=== PATIENT | male | born 1955 | race Caucasian/White ===

== ENCOUNTER 2019-06-19 15:13 | Inpatient (IN) | payer MEDICARE, OTHER ==
[~2019-06-19] VITALS: Ht 170.2 cm; Wt 79.2 kg
[~2019-06-19 15:13] MED LIST: ASPI-817 PO; ATOR-2 PO; ATOR40TA68 PO; GEMF600T8 PO; LINA5TAB PO; METF850T13 PO; METO-336 PO; NIFE30TA2 PO; OMEG100024 PO; PANT40TA4 PO
--- NOTE | 2019-06-19 15:49 | ERD ---
ER Documentation Chief Complaint Chief Complaint pt fell, loss balance -numbness on the right side HPI The patient is a 63-year-old male, presenting to the ER because of sudden onset of weakness and numbness on the right side that began around 10 AM, last known normal was about 8AM. He is unable to walk because of leg weakness. He denies headache, neck pain, chest pain, dyspnea, abdominal pain, vomiting, dysuria, diarrhea. Past medical history: Hypertension, diabetes ROS All systems reviewed and are negative except as per history of present illness. Medications Home Meds Reported Medications Aspirin* (Aspirin* EC) 81 Mg Tablet.dr, 81 MG PO DAILY, TAB 06/19/19 Atorvastatin* (Atorvastatin*) 40 Mg Tablet, 40 MG PO QHS, #30 TAB 06/19/19 Metoprolol Succinate* (Toprol XL*) 100 Mg Tab.sr.24h, 100 MG PO DAILY, #30 TAB 06/19/19 Metformin Hcl* (Metformin Hcl*) 850 Mg Tablet, 850 MG PO WITH BREAKFAST DINNE, #60 TAB 06/19/19 Allergies Allergies: Coded Allergies: No Known Allergy (Unverified , 06/19/19) Physical Exam Vitals Vital Signs Date Temp Pulse Resp B/P (MAP) Pulse Ox O2 O2 Flow FiO2 Time Delivery Rate 06/19/19 98.3 88 20 177/101 100 Room Air 17:58 (126) 06/19/19 91 16 185/112 100 Room Air 16:53 (136) 06/19/19 98.3 92 18 191/104 96 Room Air 16:15 (133) 06/19/19 98.0 99 22 194/109 97 15:18 (137) Physical Exam Const: No acute distress. Head: Atraumatic. Eyes: Normal Conjunctiva. ENT: Normal External Ears, Nose and Mouth. Neck: Full range of motion. No meningismus. Resp: Clear to auscultation bilaterally. Cardio: Regular rate and rhythm. Abd: Soft, non distended, normal bowel sounds, non tender. Skin: No petechiae or rashes. Back: No midline or flank tenderness. Ext: No cyanosis, or edema. Neur: Awake and alert. Right upper and right lower extremity are 4+, left upper and left lower extremity 5/5 Psych: Normal Mood and Affect. Result Diagram: 06/19/19 1531 06/19/19 1531 Results 24 hrs Laboratory Tests Test 06/19/19 15:31 06/19/19 15:48 White Blood Count 6.7 10^3/ul Red Blood Count 4.80 10^6/ul Hemoglobin 12.1 g/dl Hematocrit 38.1 % Mean Corpuscular Volume 79.4 fl Mean Corpuscular Hemoglobin 25.2 pg Mean Corpuscular Hemoglobin Concent 31.8 g/dl Red Cell Distribution Width 15.8 % Platelet Count 242 10^3/UL Mean Platelet Volume 11.0 fl Immature Granulocytes % 0.900 % Neutrophils % 66.5 % Lymphocytes % 25.7 % Monocytes % 5.8 % Eosinophils % 0.7 % Basophils % 0.4 % Nucleated Red Blood Cells % 0.0 /100WBC Immature Granulocytes # 0.060 10^3/ul Neutrophils # 4.5 10^3/ul Lymphocytes # 1.7 10^3/ul Monocytes # 0.4 10^3/ul Eosinophils # 0.1 10^3/ul Basophils # 0.0 10^3/ul Nucleated Red Blood Cells # 0.0 10^3/ul Prothrombin Time 13.0 Sec Prothrombin Time Ratio 1.0 INR International Normalized Ratio 0.97 Activated Partial Thromboplast Time 35.1 Sec Sodium Level 140 mmol/L Potassium Level 4.2 mmol/L Chloride Level 106 mmol/L Carbon Dioxide Level 22 mmol/L Anion Gap 12 Blood Urea Nitrogen 20 mg/dl Creatinine 1.75 mg/dl Est Glomerular Filtrat Rate mL/min 40 mL/min Glucose Level 231 mg/dl Hemoglobin A1c 9.5 % Calcium Level 9.7 mg/dl Creatine Kinase 69 IU/L Creatine Kinase Index 2.8 Creatinine Kinase MB (Mass) 1.93 ng/ml Troponin I < 0.012 ng/ml Triglycerides Level > 1575 mg/dl Cholesterol Level 294 mg/dl LDL Cholesterol, Calculated mg/dl HDL Cholesterol 27 mg/dl Cholesterol/HDL Ratio 10.8 RATIO Ethyl Alcohol Level < 10.0 mg/dl Bedside Glucose 230 mg/dL Current Medications Medications Dose Sig/Abida Start Time Status Last (Trade) Ordered Route PRN Stop Time Admin Dose Reason Admin Aspirin 325 mg ONCE ONCE 06/19/19 DC 06/19/19 (Aspirin) PO 16:30 06/19/19 16:18 16:31 Labetalol 10 mg ONCE ONCE 06/19/19 DC 06/19/19 HCl IV 17:30 06/19/19 17:43 (Labetalol) 17:41 Labetalol 20 mg STK-MED 06/19/19 DC HCl ONCE .ROUTE 17:31 06/19/19 (Labetalol) 17:32 Procedures/MDM [place] [id number] Radiology Main Line: [phone] DIAGNOSTIC IMAGING REPORT Patient: KENZIE ESPARZA : 1955 Age: 63 Sex: M MR #: [id number] DOS: 06/19/19 1525 Ordering MD: MICHELE LOTT MD Location: E/R Room/Bed: PROCEDURE: CT BRAIN WITHOUT CONTRAST CLINICAL INDICATION: Right-sided weakness. TECHNIQUE: Transaxial CT examination of the head was performed without intravenous administration of contrast on a [employer] helical CT scanner. In addition to the brain and bone windows of transaxial images, multiple sagittal and coronal reformatted images were generated for the interpretation. DICOM images are available. Radiation dose: CTDIvol = 39 mGy; total DLP = 634 mGy-cm. One or more of the following dose reduction techniques were used: - Automated exposure control. - Adjustment of the mA and/or kV according to patient size. - Use of iterative reconstruction technique. COMPARISON: None. FINDINGS: Evaluation of the supratentorial compartment demonstrates approximately 20 mm cerebral fraction of the posteroinferior right parietal lobe (series 2, image 16; series 602, image 20) of probable late subacute/early chronic age and 10 mm lacunar infarction at the lateral left thalamus (series 2, image 13; series 602, image 56) of a probable old age. There is no hemorrhage, appreciable recent cerebral infarction, mass effect, midline shift, or abnormal extra-axial fluid collection. Mild enlargement of the ventricles and mild to moderate enlargement of the cortical sulci in a pattern of atrophy are normal for the age. Mild periventricular and subcortical white matter hypoattenuation density is present, which is most likely due to age related microvascular change. Evaluation of the posterior fossa reveals no infarction, hemorrhage, or mass effect. Mild atrophic change is compatible with the age of patient. The cerebellar tonsils are in normal position relative to the foramen magnum. The skull is intact without abnormal bone density or destructive lesion. Bilateral mastoid air cells and the visualized paranasal sinuses are normally aerated. IMPRESSION: 1. No appreciable recent cerebral infarction, hemorrhage, or hydrocephalus. 2. Approximately 20 mm cerebral fraction of the posteroinferior right parietal lobe of probable late subacute/early chronic age. 3. Approximately 10 mm lacunar infarction at the lateral left thalamus of a probable old age. 4. Mild age related microvascular change. 5. A call report of the findings was made to Michele Lott MD on 06/19/2019 at 3:50 PM. RPTAT: EE Physician Alexa Date Time Electronically viewed and signed by Physician Alexa on 06/19/2019 15:56 PH/ CC: MICHELE LOTT MD [id number] [place] [id number] Radiology Main Line: [phone] DIAGNOSTIC IMAGING REPORT Patient: KENZIE ESPARZA : 1955 Age: 63 Sex: M MR #: [id number] DOS: 06/19/19 1525 Ordering MD: MICHELE LOTT MD Location: E/R Room/Bed: PROCEDURE: XR Chest. CLINICAL INDICATION: Stroke. TECHNIQUE: Chest, 1 view. COMPARISON: None. FINDINGS: The cardiomediastinal silhouette appears magnified. No focal consolidation is seen. No pleural effusion is seen. No definite pneumothorax is seen. No acute osseous abnormality. IMPRESSION: No radiographic evidence of an acute cardiopulmonary process. RPTAT: AAEE Grant Deleon Physician Date Time Electronically viewed and signed by Grant Deleon Physician on 06/19/2019 15:49 PH/ CC: MICHELE LOTT MD [id number] [place] [id number] Radiology Main Line: [phone] DIAGNOSTIC IMAGING REPORT Patient: KENZIE ESPARZA : 1955 Age: 63 Sex: M MR #: [id number] DOS: 06/19/19 1525 Ordering MD: MICHELE LOTT MD Location: E/R Room/Bed: PROCEDURE: CT ANGIOGRAPHY BRAIN, NECK, AND AORTIC ARCH WITH CONTRAST AND WITH 3D RENDERING CLINICAL INDICATION: Right-sided weakness. TECHNIQUE: CT angiography of the brain, neck, and aortic arch was performed on a digedu helical CT scanner. High resolution contiguous transaxial images were obtained from the upper thorax to the vertex during intravenous bolus administration of 90 cc of Omnipaque-350. Multiple multiplanar angiographic reformatted images and 3-D rendering were generated for the interpretation. DICOM images are available. Radiation dose: CTDIvol = 20, 42, 18 mGy; total DLP = 785 mGy-cm. One or more of the following dose reduction techniques were used: - Automated exposure control. - Adjustment of the mA and/or kV according to patient size. - Use of iterative reconstruction technique. COMPARISON: None. FINDINGS: CT ANGIOGRAM BRAIN: The basilar, intracranial portion of bilateral internal carotid, intracranial portion of bilateral vertebral, and proximal branches of bilateral anterior, middle, and posterior cerebral arteries are patent without stenosis. There is no aneurysm involving the [place] of [place] and bilateral middle cerebral artery bifurcations. There are no findings to suggest arterial dissection. CT ANGIOGRAM NECK: Approximately 21mm segment of high-grade stenosis involving the origin and proximal cervical segment of right internal carotid artery and 18 mm segment of mild stenosis involving the origin and proximal cervical segment of left internal carotid artery are present. Cervical segments of bilateral common carotid and vertebral arteries are patent without stenosis. Normal proximal branches of bilateral external carotid arteries are observed. There are no findings to suggest arterial dissection. CT ANGIOGRAM AORTIC ARCH: The innominate, bilateral common carotid, left subclavian, and origins of bilateral vertebral arteries are patent without stenosis. There are no findings to suggest arterial dissection. IMPRESSION: 1. Approximately 21mm segment of high-grade stenosis involving the origin and proximal cervical segment of right internal carotid artery. 2. Approximately 18 mm segment of mild stenosis involving the origin and proximal cervical segment of left internal carotid artery. 3. Calculations of the arterial stenosis are based on the NASCET criteria. 4. A call report of the findings was made to Michele Lott MD on 06/19/2019 at 3:50 PM. RPTAT: EE Sudhakar Dasilva Physician Date Time Electronically viewed and signed by Sudhakar Dasilva Physician on 06/19/2019 16:10 PH/ CC: MICHELE LOTT MD [id number] /UDS Pending Consultation: I discussed the patient with the on-call stroke neurologist Dr Noyola at 3:40p and again after he evaluated the patient at 4 pm. He did not recommend TPA because the patient was out of the window MEDICAL MAKING DECISION: The patient is a 73-year-old male, presenting with acute stroke, not a TPA candidate b/c he was out of the window He was treated with labetalol 10 mg IV for acute hypertensive emergency with good response, ASA 325 mg po for acute stroke. The differential diagnoses considered include but are not limited to medical noncompliance, dietary noncompliance, intracranial pathology Departure Diagnosis: Primary Impression: Acute embolic stroke Additional Impressions: Renal insufficiency Anemia Condition: Stable Comments I discussed the findings with the patient. I notified the patient with at 5:35p via [facility], who was made aware of the lab, the treatment, the patient condition. The patient is admitted to [facility] Disclaimer: Inadvertent spelling and grammatical errors are likely due to EHR/dictation software use and do not reflect on the overall quality of patient care. Also, please note that the electronic time recorded on this note does not necessarily reflect the actual time of the patient encounter. MICHELE LOTT MD Jun 19, 2019 15:49
--- NOTE | 2019-06-19 15:59 | STROKE ---
Date/Time of Note Date/Time of Note DATE: 06/19/19 TIME: 18:40 Patient Information General Arrival Date Age 63 Gender male Weight 84.09 kg Vital Signs Vital Signs Vital Signs Date Temp Pulse Resp B/P (MAP) Pulse Ox O2 O2 Flow FiO2 Time Delivery Rate 06/19/19 98.0 99 22 194/109 97 15:18 (137) NIH Stroke Scale NIH Stroke Scale Date/Time Recorded DATE: 06/19/19 TIME: 18:40 Submitted By Wallace Gutierrez t-PA Imaging Review Date/Time Imaging Reviewed DATE: 06/19/19 TIME: 18:40 t-PA Administration Weight 84.09 kg Recommedation submitted by Wallace Gutierrez Recommendations Recommendation 63-year-old right-handed man with sudden onset of right-sided weakness this morning at 10:00 am. LKN 8:00 am. son interprets. is present. blood pressure on arrival is 194/109. he has right arm drift. patient is not a candidate for iv tpa because he is outside the time window for such therapy. he is undergoing vascular imaging to see if there is a large vessel occlusion. patient will need to be admitted for stroke workup to include mri brain, transthoracic echocardiogram, lipid profile. he will need physical therapy, sp eech therapy, occupational therapy. do not administer anything by mouth until bedside swallow was passed. if vascular imaging shows large vessel occlusion, he will be referred for intervention - I do not see one on CTA. otherwise, no acute intervention. SBP < 200. aspirin 325 mg now. high intensity statin. ldl goal 70. WALLACE GUTIERREZ MD Jun 19, 2019 15:50
[2019-06-19] MEDS ORDERED: ASPIRIN 325 MG TAB PO ONE (16:30)
[2019-06-19] MEDS ORDERED: LABETALOL HCL 20MG INJ IV ONE ×2 (17:30→21:00)
[2019-06-19] MEDS ORDERED: LABETALOL HCL 20MG INJ ONE (17:31)
[2019-06-19] MEDS ORDERED: NACL 0.9% 3 ML SYG IV SCH (19:00)
[2019-06-19] MEDS ORDERED: DOCUSATE SODIUM 100 MG CAP PO PRN (19:00)
[2019-06-19] MEDS ORDERED: ONDANSETRON 4 MG INJ IV PRN (19:00)
[2019-06-19] MEDS ORDERED: NITROGLYCERIN (SL) 0.4 MG TAB SL PRN (19:00)
[2019-06-19] MEDS ORDERED: MAGNESIUM HYDROXIDE 30ML CUP PO PRN (19:00)
--- NOTE | 2019-06-19 19:28 | HP ---
Date/Time of Note Date/Time of Note DATE: 06/19/19 TIME: 19:11 Assessment/Plan VTE Prophylaxis SCD applied (from Nsg): Yes Pharmacological prophylaxis: heparin Lines/Catheters IV Catheter Type (from Nrsg): Saline Lock Assessment/Plan Assessment/Plan 1. Acute right sided numbness - Patient TRUONG was this am around 8am - CT head negative for acute issues - CTA performed with no large vessel occlusion - MRI brain ordered - Neurology consulted for further recommendations - ECHO with bubble ordered - Will continue permissive HTN for the next 48 hours - PT/OT ordered for evaluation - no swallowing or speech deficits appreciated 2. HyperTG - will change to high dose statin - started on gemfibrozil as well - diet modification counseling prior to discharge 3. HTN - allow for permissive HTN - hold home medications 4. Diabetes mellitus - A1c noted - patient refusing home insulin - will consult DM education - ISS and accuchecks okay while inhouse - will hold Metformin in setting of GIBLERT 5. GILBERT - will continue IVF given could be contrast induced - will check renal US - if worsening, will consult Nephrology - will avoid nephrotoxic agents 6. ETOH use - counseled about cessation 7. Diet - Carb controlled 8. Disposition - Admit to telemetry for stroke workup. Neurology consulted for further recom mendations. Result Diagram: 06/19/19 1531 06/19/19 1531 Results 24hrs Laboratory Tests Test 06/19/19 15:31 06/19/19 15:48 White Blood Count 6.7 Red Blood Count 4.80 Hemoglobin 12.1 L Hematocrit 38.1 L Mean Corpuscular Volume 79.4 L Mean Corpuscular Hemoglobin 25.2 L Mean Corpuscular Hemoglobin Concent 31.8 L Red Cell Distribution Width 15.8 H Platelet Count 242 Mean Platelet Volume 11.0 H Immature Granulocytes % 0.900 H Neutrophils % 66.5 Lymphocytes % 25.7 Monocytes % 5.8 Eosinophils % 0.7 Basophils % 0.4 Nucleated Red Blood Cells % 0.0 Immature Granulocytes # 0.060 H Neutrophils # 4.5 Lymphocytes # 1.7 Monocytes # 0.4 Eosinophils # 0.1 Basophils # 0.0 Nucleated Red Blood Cells # 0.0 Prothrombin Time 13.0 Prothrombin Time Ratio 1.0 INR International Normalized Ratio 0.97 Activated Partial Thromboplast Time 35.1 H Sodium Level 140 Potassium Level 4.2 Chloride Level 106 Carbon Dioxide Level 22 Anion Gap 12 Blood Urea Nitrogen 20 Creatinine 1.75 H Est Glomerular Filtrat Rate mL/min 40 L Glucose Level 231 H Hemoglobin A1c 9.5 H Calcium Level 9.7 Creatine Kinase 69 Creatine Kinase Index 2.8 Creatinine Kinase MB (Mass) 1.93 Troponin I < 0.012 Triglycerides Level > 1575 H Cholesterol Level 294 H LDL Cholesterol, Calculated HDL Cholesterol 27 L Cholesterol/HDL Ratio 10.8 Ethyl Alcohol Level < 10.0 H Bedside Glucose 230 H HPI/ROS Admit Date/Time Admit Date/Time 06/19/19 Hx of Present Illness 63 yo M with PMH Diabetes Mellitus, Hypertension, and HLD presented to ED with new onset right sided weakness since 10am. Patient states he has been experiencing right abdominal numbness/discomfort for 6-7 months and supposed to see his PCP tomorrow. 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 Patient denies any dizziness, blurred vision, speech difficulty, nausea, vomiting, chest pain, shortness of breath, constipation, diarrhea, or urinary issues. Patient was evaluated by tele neurologist and was outside of TPA window. Patient was noted with elevated BP in the 190s at time of admission. Patient denies any history of ME or CVA in the past. He recently stopped smoking in December but only smoked 3-5 cigarettes a day. He recently started drinking more often, per family, after of his grandson. ROS All 12 systems reviewed and pertinent positives as per HPI. All others negative . Constitutional: No disoriented, No nausea Eyes: No discharge ENT: No pain, No congestion, No dysphagia Respiratory: No cough, No shortness of breath, No sputum, No wheezing Cardiovascular: No chest pain Gastrointestinal: other (numbness right flank radiating to anterior right quadrant ); No pain, No constipation, No diarrhea, No nausea, No vomiting Genitourinary: flank pain; No bleeding Musculoskeletal: No neck pain Skin: No bruising, No laceration, No rash Neurologic: other (right sided numbness RUE and RLE.); No confusion, No dizziness, No focal-weakness, No syncope, No seizure Endocrine: no complaints Lymphatic: no complaints Psychological: nl mood/affect Immunologic: no complaints PMH/Family/Social Past Medical History Medical History: diabetes, high cholesterol, hypertension Medications Current Medications Aspirin (Halfprin) 81 mg DAILY PO ; Start 06/20/19 at 09:00 Atorvastatin Calcium (Lipitor) 80 mg QHS PO ; Start 06/19/19 at 21:00 Sodium Chloride 1,000 ml @ 75 mls/hr [id number] IV ; Start 06/19/19 at 18:36 IV Flush (NS 3 ml) 3 ml PER PROTOCOL IV ; Start 06/19/19 at 19:00 Ondansetron HCl (Zofran Inj) 4 mg Q6H PRN IV NAUSEA/VOMITING; Start 06/19/19 at 19:00 Nitroglycerin (Nitroglycerin (Sl Tab) 0.4 Mg) 1 tab Q5M PRN SL .CHEST PAIN; Start 06/19/19 at 19:00 Acetaminophen (Tylenol Tab) 650 mg Q6H PRN PO .PAIN 1-3 OR TEMP; Start 06/19/19 at 19:00 Docusate Sodium (Colace) 100 mg Q12H PRN PO .CONSTIPATION; Start 06/19/19 at 19:00 Magnesium Hydroxide (Milk Of Mag) 30 ml DAILY PRN PO .CONSTIPATION; Start 06/19/19 at 19:00 Pantoprazole (Protonix Tab) 40 mg DAILY@06 PO ; Start 06/20/19 at 06:00 Heparin Sodium (Porcine) (Heparin (5000 Units/1ml)) 5,000 unit Q12 SC ; Start 06/19/19 at 21:00 Labetalol HCl (Labetalol) 10 mg Q2 PRN IV SBP >200; Start 06/19/19 at 19:00 Coded Allergies: No Known Allergy (Unverified , 06/19/19) Past Surgical History Past Surgical Hx: no surgical history Family History Significant Family History: no pertinent family hx Social History Alcohol Use: other (6 beers daily over past 2 weeks) Smoking Status: Former smoker Drug Use: none Exam/Review of Systems Vital Signs Vitals Vital Signs Date Temp Pulse Resp B/P (MAP) Pulse Ox O2 O2 Flow FiO2 Time Delivery Rate 06/19/19 98.3 88 20 177/101 100 Room Air 17:58 (126) Exam Exam General: Patient is laying in bed and answers questions appropriately. no acute distress Mentation: Patient is alert and oriented 4 Head: Normocephalic atraumatic Eyes: EOMI, pupils reactive to light Neck: Supple, nontender, midline Respiratory: Clear to auscultation bilaterally. no wheezing or rhonchi Cardiovascular: S1, S2, regular rate and rhythm, no obvious murmurs Gastrointestinal:soft, nontender palpation, nondistended, bowel sounds heard. no rebound or guarding. diminished sensation right flank extending to anterior aspect of right quadrant Neurological: CN 2-12 intact. motor intact UE/LE b/l. Sensation RUE and RLE diminished. LUE and LLE intact. no focal deficits appreciated Skin: No new skin lesions Additional Comments All home medications reviewed. PROCEDURE: CT BRAIN WITHOUT CONTRAST CLINICAL INDICATION: Right-sided weakness. TECHNIQUE: Transaxial CT examination of the head was performed without intravenous administration of contrast on a Elixr helical CT scanner. In addition to the brain and bone windows of transaxial images, multiple sagittal and coronal reformatted images were generated for the interpretation. DICOM images are available. Radiation dose: CTDIvol = 39 mGy; total DLP = 634 mGy-cm. One or more of the following dose reduction techniques were used: - Automated exposure control. - Adjustment of the mA and/or kV according to patient size. - Use of iterative reconstruction technique. COMPARISON: None. FINDINGS: Evaluation of the supratentorial compartment demonstrates approximately 20 mm cerebral fraction of the posteroinferior right parietal lobe (series 2, image 16; series 602, image 20) of probable late subacute/early chronic age and 10 mm lacunar infarction at the lateral left thalamus (series 2, image 13; series 602, image 56) of a probable old age. There is no hemorrhage, appreciable recent cerebral infarction, mass effect, midline shift, or abnormal extra-axial fluid collection. Mild enlargement of the ventricles and mild to moderate enlargement of the cortical sulci in a pattern of atrophy are normal for the age. Mild periventricular and subcortical white matter hypoattenuation density is present, which is most likely due to age related microvascular change. Evaluation of the posterior fossa reveals no infarction, hemorrhage, or mass effect. Mild atrophic change is compatible with the age of patient. The cerebellar tonsils are in normal position relative to the foramen magnum. The skull is intact without abnormal bone density or destructive lesion. Bilateral mastoid air cells and the visualized paranasal sinuses are normally aerated. IMPRESSION: 1. No appreciable recent cerebral infarction, hemorrhage, or hydrocephalus. 2. Approximately 20 mm cerebral fraction of the posteroinferior right parietal lobe of probable late subacute/early chronic age. 3. Approximately 10 mm lacunar infarction at the lateral left thalamus of a probable old age. 4. Mild age related microvascular change. 5. A call report of the findings was made to Michele Correia MD on 06/19/2019 at 3:50 PM. RPTAT: EE Sudhakar Dasilva, Physician Date Time Electronically viewed and signed by Sudhakar Dasilva Physician on 06/19/2019 15:56 PROCEDURE: XR Chest. CLINICAL INDICATION: Stroke. TECHNIQUE: Chest, 1 view. COMPARISON: None. FINDINGS: The cardiomediastinal silhouette appears magnified. No focal consolidation is seen. No pleural effusion is seen. No definite pneumothorax is seen. No acute osseous abnormality. IMPRESSION: No radiographic evidence of an acute cardiopulmonary process. RPTAT: AAEE Grant Deleon, Physician Date Time Electronically viewed and signed by Physician Stefanie on 06/19/2019 15:49 PROCEDURE: CT ANGIOGRAPHY BRAIN, NECK, AND AORTIC ARCH WITH CONTRAST AND WITH 3D RENDERING CLINICAL INDICATION: Right-sided weakness. TECHNIQUE: CT angiography of the brain, neck, and aortic arch was performed on a Elixr helical CT scanner. High resolution contiguous transaxial images were obtained from the upper thorax to the vertex during intravenous bolus administration of 90 cc of Omnipaque-350. Multiple multiplanar angiographic reformatted images and 3-D rendering were generated for the interpretation. DICOM images are available. Radiation dose: CTDIvol = 20, 42, 18 mGy; total DLP = 785 mGy-cm. One or more of the following dose reduction techniques were used: - Automated exposure control. - Adjustment of the mA and/or kV according to patient size. - Use of iterative reconstruction technique. COMPARISON: None. FINDINGS: CT ANGIOGRAM BRAIN: The basilar, intracranial portion of bilateral internal carotid, intracranial portion of bilateral vertebral, and proximal branches of bilateral anterior, middle, and posterior cerebral arteries are patent without stenosis. There is no aneurysm involving the [place] of [place] and bilateral middle cerebral artery bifurcations. There are no findings to suggest arterial dissection. CT ANGIOGRAM NECK: Approximately 21mm segment of high-grade stenosis involving the origin and proximal cervical segment of right internal carotid artery and 18 mm segment of mild stenosis involving the origin and proximal cervical segment of left internal carotid artery are present. Cervical segments of bilateral common carotid and vertebral arteries are patent without stenosis. Normal proximal branches of bilateral external carotid arteries are observed. There are no findings to suggest arterial dissection. CT ANGIOGRAM AORTIC ARCH: The innominate, bilateral common carotid, left subclavian, and origins of bilateral vertebral arteries are patent without stenosis. There are no findings to suggest arterial dissection. IMPRESSION: 1. Approximately 21mm segment of high-grade stenosis involving the origin and proximal cervical segment of right internal carotid artery. 2. Approximately 18 mm segment of mild stenosis involving the origin and proximal cervical segment of left internal carotid artery. 3. Calculations of the arterial stenosis are based on the NASCET criteria. 4. A call report of the findings was made to Michele Correia MD on 06/19/2019 at 3:50 PM. RPTAT: EE Physician Alexa Date Time Electronically viewed and signed by Physician Alexa on 06/19/2019 16:10 LIZANDRO CARRERA MD Jun 19, 2019 19:28
[2019-06-19] MEDS ORDERED: GLUCAGON 1 MG INJ IM PRN (19:30)
[2019-06-19] MEDS ORDERED: GLUCOSE GEL 15 GRAM TUBE BUCCAL PRN (19:30)
[2019-06-19] MEDS ORDERED: DEXTROSE 50% 50 ML SYRINGE IV PRN ×2 (19:30)
[2019-06-19] MEDS ORDERED: GLUCOSE GEL 15 GRAM TUBE PO PRN ×2 (19:30)
[2019-06-19] MEDS: LABETALOL HCL 20MG INJ IV PRN (19:41)
[2019-06-19] MEDS ORDERED: ATORVASTATIN 40 MG TAB PO SCH (21:00)
[2019-06-19] MEDS: INSULIN ASPART [NOVOLOG] 3 ML PEN SC SCH (22:20)
[2019-06-19] MEDS: GEMFIBROZIL 600 MG TAB PO SCH (22:48)
[2019-06-20] VITALS (7 sets, daily range): BP systolic 182–254; BP diastolic 89–124; PULSE 89–102; RESP 18–20; Ht 170.2 cm; Wt 79.2 kg
[2019-06-20] MEDS: LABETALOL HCL 20MG INJ IV PRN (01:39)
[2019-06-20] MEDS ORDERED: LABETALOL HCL 20MG INJ IV ONE (02:00)
[2019-06-20] MEDS: SOD CHLORIDE 0.9% 1,000 ML IV SCH ×3 (03:25→20:14)
[2019-06-20] MEDS: HEPARIN 5,000 UNIT/1 ML VIAL SC SCH ×3 (03:39→21:09)
[2019-06-20] MEDS ORDERED: INSULIN ASPART [NOVOLOG] 3 ML PEN SC ONE (04:00)
[2019-06-20] MEDS ORDERED: ACCU-CHEK XX ONE (04:00)
[2019-06-20] MEDS: PANTOPRAZOLE (EC) 40 MG TAB PO SCH (06:38)
[2019-06-20] MEDS: INSULIN ASPART [NOVOLOG] 3 ML PEN SC SCH ×4 (07:48→21:09)
[2019-06-20] MEDS ORDERED: ASPIRIN 81 MG TAB ONE (07:51)
[2019-06-20] MEDS: GEMFIBROZIL 600 MG TAB PO SCH ×2 (07:55→20:48)
[2019-06-20] MEDS: ASPIRIN (EC) 81 MG TAB PO SCH (08:04)
[2019-06-20] MEDS ORDERED: LABETALOL HCL 20MG INJ IV PRN (09:00)
[2019-06-20] MEDS ORDERED: hydrALAzine 20 MG INJ IV PRN (09:00)
[2019-06-20] MEDS ORDERED: MAGNESIUM SULFATE 2 GM/50 ML 50 ML IVPB ONE (10:00)
[2019-06-20] MEDS: INSULIN GLARGINE [LANTus] (100 UNITS/ML) SYG SC SCH (10:58)
--- NOTE | 2019-06-20 14:56 | CONSI ---
Assessment/Plan Assessment/Plan Assessment/Plan (Recall) 63 M c/ multiple cerebrovascular risk factors, who presents for evaluation of right hemiparesis and hemisensory loss. MRI brain confirmed an acute L bg/cr infarction.. CUS/CTA head/neck are notable for bicarotid stenosis, worse on the right... A1C 9.5 LDL unable to be calculated.. P: Agree w/ asa/lipitor daily for now Permissive HTN to 220/110 w/ HOB flat and continuous iv fluids today given clinical deterioration.. Await UDS; Add ESR, RPR Await Echo read Vascular surgery evaluation for carotid stenoses ST/OT OK while flat Other management and supportive care per primary Will follow Consultation Date/Type/Reason Admit Date/Time 06/19/19 Type of Consult Neurology Reason for Consultation stroke Requesting Provider: LIZANDRO CARRERA MD Date/Time of Note DATE: 06/20/19 TIME: 14:40 Hx of Present Illness 63 yo M with PMH Diabetes Mellitus, Hypertension, and HLD presented to ED with new onset right sided weakness since 10am. Patient states he has been experiencing right abdominal numbness/discomfort for 6-7 months and supposed to see his PCP tomorrow. Patient states the numbness extended to his RLE and RUE causing him to feel off balanced and unable to plate former anything with his right hand. Patient denies any dizziness, blurred vision, speech difficulty, nausea, vomiting, chest pain, shortness of breath, constipation, diarrhea, or urinary issues. Patient was evaluated by tele neurologist and was outside of TPA window. Patient was noted with elevated BP in the 190s at time of admission. Patient denies any history of LA or CVA in the past. He recently stopped smoking in December but only smoked 3-5 cigarettes a day. He recently started drinking more often, per family, after of his grandson. Notes worsened weakness overnight.. Repeat Head CT is w/o evidence of hemorrhagic transformation reviewed Objective Exam Vitals Vital Signs Date Temp Pulse Resp B/P (MAP) Pulse Ox O2 O2 Flow FiO2 Time Delivery Rate 06/20/19 98.0 95 20 185/96 98 12:00 (125) 06/20/19 Room Air 02:00 Intake and Output 06/19/19 06/19/19 06/20/19 1515:00 23:00 07:00 IntakeIntake Total 475 ml OutputOutput Total 200 ml BalanceBalance 275 ml Exam PE: Gen Appearance: No Apparent Distress HEENT: Normocephalic Cardiovascular: Regular rate Abdomen: Soft Extremities: Dry NE: The patient was alert and oriented. Language was normal, though speech was moderately dysarthric.. Fund of knowledge was normal. Pupils were equal and reactive to light. There was no afferent pupillary defect. Visual urena were normal. Funduscopic examination was limited. Extra-ocular movements were full. Ptosis was absent. There was no nystagmus. Facial sensation was normal. Face was asymmetric with decreased activation on the right.. Hearing was intact. Palate movements were normal. Neck strength was normal. There was n ormal tongue bulk and speed of movement. Tone was normal. Muscle bulk was normal. I did not see fasciculations. Arms and legs were severely weak on the right. Vibration sensation was normal. Temperature and pinprick sensation was normal. Rapid alternating movements were limited by weakness on the right. There was no dysmetria on the left.. There was no intention tremor. Gait was deferred due to bedrest. Arm and leg reflexes were symmetric. Smiley's sign was absent. Plantar response was extensor on the right. Results Result Diagram: 06/20/19 0525 06/20/19 0525 Results 24hrs Laboratory Tests Test 06/19/19 15:31 06/19/19 15:48 06/19/19 22:12 06/20/19 03:23 White Blood Count 6.7 Red Blood Count 4.80 Hemoglobin 12.1 L Hematocrit 38.1 L Mean Corpuscular Volume 79.4 L Mean Corpuscular 25.2 L Hemoglobin Mean Corpuscular 31.8 L Hemoglobin Concent Red Cell Distribution 15.8 H Width Platelet Count 242 Mean Platelet Volume 11.0 H Immature Granulocytes % 0.900 H Neutrophils % 66.5 Lymphocytes % 25.7 Monocytes % 5.8 Eosinophils % 0.7 Basophils % 0.4 Nucleated Red Blood 0.0 Cells % Immature Granulocytes # 0.060 H Neutrophils # 4.5 Lymphocytes # 1.7 Monocytes # 0.4 Eosinophils # 0.1 Basophils # 0.0 Nucleated Red Blood 0.0 Cells # Prothrombin Time 13.0 Prothrombin Time Ratio 1.0 INR International 0.97 Normalized Ratio Activated 35.1 H Partial Thromboplast Time Sodium Level 140 Potassium Level 4.2 Chloride Level 106 Carbon Dioxide Level 22 Anion Gap 12 Blood Urea Nitrogen 20 Creatinine 1.75 H Est Glomerular Filtrat 40 L Rate mL/min Glucose Level 231 H Hemoglobin A1c 9.5 H Calcium Level 9.7 Creatine Kinase 69 Creatine Kinase Index 2.8 Creatinine Kinase MB 1.93 (Mass) Troponin I < 0.012 Triglycerides Level > 1575 H Cholesterol Level 294 H LDL Cholesterol, Calculated HDL Cholesterol 27 L Cholesterol/HDL Ratio 10.8 Ethyl Alcohol Level < 10.0 H Bedside Glucose 230 H 209 320 H Test 06/20/19 04:36 06/20/19 05:25 06/20/19 06:36 06/20/19 07:34 Bedside Glucose 340 H 260 H 246 H White Blood Count 6.4 Red Blood Count 5.06 Hemoglobin 12.8 L Hematocrit 40.6 L Mean Corpuscular Volume 80.2 L Mean Corpuscular 25.3 L Hemoglobin Mean Corpuscular 31.5 L Hemoglobin Concent Red Cell Distribution 16.0 H Width Platelet Count 257 Mean Platelet Volume 11.9 H Immature Granulocytes % 0.800 H Neutrophils % 78.4 H Lymphocytes % 14.8 L Monocytes % 5.0 Eosinophils % 0.8 Basophils % 0.2 Nucleated Red Blood 0.0 Cells % Immature Granulocytes # 0.050 H Neutrophils # 5.0 Lymphocytes # 0.9 Monocytes # 0.3 Eosinophils # 0.1 Basophils # 0.0 Nucleated Red Blood 0.0 Cells # Sodium Level 139 Potassium Level 3.8 Chloride Level 104 Carbon Dioxide Level 20 L Anion Gap 15 H Blood Urea Nitrogen 22 H Creatinine 1.54 H Est Glomerular Filtrat 46 L Rate mL/min Glucose Level 305 H Calcium Level 9.7 Magnesium Level 1.7 Total Bilirubin 0.4 Direct Bilirubin 0.00 Indirect Bilirubin 0.4 Aspartate Amino 20 Transf (AST/SGOT) Alanine 12 L Aminotransferase (ALT/SG PT) Alkaline Phosphatase 96 Total Protein 8.2 H Albumin 4.3 Globulin 3.90 H Albumin/Globulin Ratio 1.10 Thyroid Stimulating 4.090 Hormone (TSH) Test 06/20/19 11:47 Bedside Glucose 313 H Past Medical History Medical History: diabetes, high cholesterol, hypertension Home Meds Reported Medications Aspirin* (Aspirin* EC) 81 Mg Tablet.dr, 81 MG PO DAILY, TAB 06/19/19 Atorvastatin* (Atorvastatin*) 40 Mg Tablet, 40 MG PO QHS, #30 TAB 06/19/19 Metoprolol Succinate* (Toprol XL*) 100 Mg Tab.sr.24h, 100 MG PO DAILY, #30 TAB 06/19/19 Metformin Hcl* (Metformin Hcl*) 850 Mg Tablet, 850 MG PO WITH BREAKFAST DINNE, #60 TAB 06/19/19 Medications Current Medications Aspirin (Halfprin) 81 mg DAILY PO Last administered on 06/20/19 08:04; Admin Dose 81 MG; Start 06/20/19 at 09:00 Sodium Chloride 1,000 ml @ 75 mls/hr [id number] IV Last administered on 06/20/19at 07:54; Admin Dose 75 MLS/HR; Start 06/19/19 at 18:36 IV Flush (NS 3 ml) 3 ml PER PROTOCOL IV ; Start 06/19/19 at 19:00 Ondansetron HCl (Zofran Inj) 4 mg Q6H PRN IV NAUSEA/VOMITING; Start 06/19/19 at 19:00 Nitroglycerin (Nitroglycerin (Sl Tab) 0.4 Mg) 1 tab Q5M PRN SL .CHEST PAIN; Start 06/19/19 at 19:00 Acetaminophen (Tylenol Tab) 650 mg Q6H PRN PO .PAIN 1-3 OR TEMP; Start 06/19/19 at 19:00 Docusate Sodium (Colace) 100 mg Q12H PRN PO .CONSTIPATION; Start 06/19/19 at 19:00 Magnesium Hydroxide (Milk Of Mag) 30 ml DAILY PRN PO .CONSTIPATION; Start 06/19/19 at 19:00 Pantoprazole (Protonix Tab) 40 mg DAILY@06 PO Last administered on 06/20/19at 06:38; Admin Dose 40 MG; Start 06/20/19 at 06:00 Heparin Sodium (Porcine) (Heparin (5000 Units/1ml)) 5,000 unit Q12 SC Last administered on 06/20/19 08:03; Admin Dose 5,000 UNIT; Start 06/19/19 at 21:00 Gemfibrozil (Lopid) 600 mg BID PO Last administered on 06/20/19 07:55; Admin Dose 600 MG; Start 06/19/19 at 21:00 Insulin Aspart (Novolog Insulin Pen) NOVOLOG *MILD* ALGORITHM WITH MEALS BEDTIME SC Last administered on 8/6/19at 11:52; Admin Dose 5 UNIT; Start at 21:00 Miscellaneous Information 1 ea NOTE XX ; Start 06/19/19 at 19:30 Glucose (Glutose) 15 gm Q15M PRN PO DECREASED GLUCOSE; Start 06/19/19 at 19:30 Glucose (Glutose) 22.5 gm Q15M PRN PO DECREASED GLUCOSE; Start 06/19/19 at 19:30 Dextrose (D50w Syringe) 25 ml Q15M PRN IV DECREASED GLUCOSE; Start 06/19/19 at 19:30 Dextrose (D50w Syringe) 50 ml Q15M PRN IV DECREASED GLUCOSE; Start 06/19/19 at 19:30 Glucagon (Glucagen) 1 mg Q15M PRN IM DECREASED GLUCOSE; Start 06/19/19 at 19:30 Glucose (Glutose) 15 gm Q15M PRN BUCCAL DECREASED GLUCOSE; Start 06/19/19 at 19:30 Atorvastatin Calcium (Lipitor) 80 mg DAILY@21 PO ; Start 06/20/19 at 21:00 Insulin Glargine (Lantus) 16 units DAILY@0800 SC Last administered on 06/20/19at 10:58; Admin Dose 16 UNITS; Start 06/20/19 at 09:00 Labetalol HCl (Labetalol) 20 mg Q2H PRN IV SBP >200; Start 06/20/19 at 09:00 Hydralazine HCl (Apresoline) 10 mg Q4H PRN IV SBP >200; Start 06/20/19 at 09:00 Allergies: Coded Allergies: No Known Allergy (Unverified , 06/19/19) Past Surgical History Past Surgical Hx: no surgical history Social History Alcohol Use: other (6 beers daily over past 2 weeks) Smoking Status: Never smoker Drug Use: none LIZABETH GOODSON Jun 20, 2019 14:51
--- NOTE | 2019-06-20 15:13 | PN ---
Date/Time of Note Date/Time of Note DATE: 06/20/19 TIME: 15:03 Assessment/Plan VTE Prophylaxis Risk score (from Ns)>0 risk: 4 SCD applied (from Nsg): Yes Pharmacological prophylaxis: other Lines/Catheters IV Catheter Type (from Nrsg): Peripheral IV Assessment/Plan Assessment/Plan 1. 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 Bilateral carotid stenosis - noted on US with R worse than L - Vascular surgery consulted for further recommendations - continue aspirin and statin 3. Bladder lesion - Urology consulted for further recommendations given concern for mass on US 4. Hypertriglyceridemia - counseled about lifestyle modifications - nutrition consultation placed for teaching - continue statin and gemfibrozil 5. Diabetes Mellitus - discussed possible need for insulin after discharge for proper DM control but will consult DM for teaching. Patient seems to think if he feels well, he does not need to take any medications - A1c noted - Lantus initiated - ISS increased to moderate - given GILBERT need to hold off on Metformin 6. HTN - allow for permissive HTN - hold home medications 7. GILBERT- improving - continue IVF - avoid nephrotoxic agents 8. ETOH use - counseled about cessation 9. Disposition - Continue permissive HTN and monitor for worsening of sx - Vascular consultation placed given bilateral carotid stenosis Result Diagram: 06/20/19 0525 06/20/19 0525 Results 24hrs Laboratory Tests Test 06/19/19 15:31 06/19/19 15:48 06/19/19 22:12 06/20/19 03:23 White Blood Count 6.7 Red Blood Count 4.80 Hemoglobin 12.1 L Hematocrit 38.1 L Mean Corpuscular Volume 79.4 L Mean Corpuscular 25.2 L Hemoglobin Mean Corpuscular 31.8 L Hemoglobin Concent Red Cell Distribution 15.8 H Width Platelet Count 242 Mean Platelet Volume 11.0 H Immature Granulocytes % 0.900 H Neutrophils % 66.5 Lymphocytes % 25.7 Monocytes % 5.8 Eosinophils % 0.7 Basophils % 0.4 Nucleated Red Blood 0.0 Cells % Immature Granulocytes # 0.060 H Neutrophils # 4.5 Lymphocytes # 1.7 Monocytes # 0.4 Eosinophils # 0.1 Basophils # 0.0 Nucleated Red Blood 0.0 Cells # Prothrombin Time 13.0 Prothrombin Time Ratio 1.0 INR International 0.97 Normalized Ratio Activated 35.1 H Partial Thromboplast Time Sodium Level 140 Potassium Level 4.2 Chloride Level 106 Carbon Dioxide Level 22 Anion Gap 12 Blood Urea Nitrogen 20 Creatinine 1.75 H Est Glomerular Filtrat 40 L Rate mL/min Glucose Level 231 H Hemoglobin A1c 9.5 H Calcium Level 9.7 Creatine Kinase 69 Creatine Kinase Index 2.8 Creatinine Kinase MB 1.93 (Mass) Troponin I < 0.012 Triglycerides Level > 1575 H Cholesterol Level 294 H LDL Cholesterol, Calculated HDL Cholesterol 27 L Cholesterol/HDL Ratio 10.8 Ethyl Alcohol Level < 10.0 H Bedside Glucose 230 H 209 320 H Test 06/20/19 04:36 06/20/19 05:25 06/20/19 06:36 06/20/19 07:34 Bedside Glucose 340 H 260 H 246 H White Blood Count 6.4 Red Blood Count 5.06 Hemoglobin 12.8 L Hematocrit 40.6 L Mean Corpuscular Volume 80.2 L Mean Corpuscular 25.3 L Hemoglobin Mean Corpuscular 31.5 L Hemoglobin Concent Red Cell Distribution 16.0 H Width Platelet Count 257 Mean Platelet Volume 11.9 H Immature Granulocytes % 0.800 H Neutrophils % 78.4 H Lymphocytes % 14.8 L Monocytes % 5.0 Eosinophils % 0.8 Basophils % 0.2 Nucleated Red Blood 0.0 Cells % Immature Granulocytes # 0.050 H Neutrophils # 5.0 Lymphocytes # 0.9 Monocytes # 0.3 Eosinophils # 0.1 Basophils # 0.0 Nucleated Red Blood 0.0 Cells # Sodium Level 139 Potassium Level 3.8 Chloride Level 104 Carbon Dioxide Level 20 L Anion Gap 15 H Blood Urea Nitrogen 22 H Creatinine 1.54 H Est Glomerular Filtrat 46 L Rate mL/min Glucose Level 305 H Calcium Level 9.7 Magnesium Level 1.7 Total Bilirubin 0.4 Direct Bilirubin 0.00 Indirect Bilirubin 0.4 Aspartate Amino 20 Transf (AST/SGOT) Alanine 12 L Aminotransferase (ALT/SG PT) Alkaline Phosphatase 96 Total Protein 8.2 H Albumin 4.3 Globulin 3.90 H Albumin/Globulin Ratio 1.10 Thyroid Stimulating 4.090 Hormone (TSH) Test 06/20/19 11:47 Bedside Glucose 313 H Subjective 24 Hr Interval Summary Free Text/Dictation Patient states he was experiencing worsening numbness and weakness of his right upper and lower extremity. Discussed need for life style changes given uncontrolled DM, TG, LDL, and vascular disease. Exam/Review of Systems Exam Vitals Vital Signs Date Temp Pulse Resp B/P (MAP) Pulse Ox O2 O2 Flow FiO2 Time Delivery Rate 06/20/19 98.0 95 20 185/96 98 12:00 (125) 06/20/19 Room Air 02:00 Intake and Output 06/19/19 06/19/19 06/20/19 1515:00 23:00 07:00 IntakeIntake Total 475 ml OutputOutput Total 200 ml BalanceBalance 275 ml Exam General: Patient is sitting up in bed, answering questions appropriately Mentation: Patient is alert and oriented 4 Respiratory: Clear to auscultation bilaterally. no wheezing or rhonchi Cardiovascular: S1, S2, regular rate and rhythm, no obvious murmurs Gastrointestinal:soft, nontender palpation, nondistended, bowel sounds heard. no rebound or guarding Neurological: right facial droop, LUE and LLE motor and sensation intact. 2/5 RUE and RLE strength. diminished sensation RUE and RLE. right pronator drift Skin: No new skin lesions Results Results 24hrs Laboratory Tests Test 06/19/19 15:31 06/19/19 15:48 06/19/19 22:12 06/20/19 03:23 White Blood Count 6.7 Red Blood Count 4.80 Hemoglobin 12.1 L Hematocrit 38.1 L Mean Corpuscular Volume 79.4 L Mean Corpuscular 25.2 L Hemoglobin Mean Corpuscular 31.8 L Hemoglobin Concent Red Cell Distribution 15.8 H Width Platelet Count 242 Mean Platelet Volume 11.0 H Immature Granulocytes % 0.900 H Neutrophils % 66.5 Lymphocytes % 25.7 Monocytes % 5.8 Eosinophils % 0.7 Basophils % 0.4 Nucleated Red Blood 0.0 Cells % Immature Granulocytes # 0.060 H Neutrophils # 4.5 Lymphocytes # 1.7 Monocytes # 0.4 Eosinophils # 0.1 Basophils # 0.0 Nucleated Red Blood 0.0 Cells # Prothrombin Time 13.0 Prothrombin Time Ratio 1.0 INR International 0.97 Normalized Ratio Activated 35.1 H Partial Thromboplast Time Sodium Level 140 Potassium Level 4.2 Chloride Level 106 Carbon Dioxide Level 22 Anion Gap 12 Blood Urea Nitrogen 20 Creatinine 1.75 H Est Glomerular Filtrat 40 L Rate mL/min Glucose Level 231 H Hemoglobin A1c 9.5 H Calcium Level 9.7 Creatine Kinase 69 Creatine Kinase Index 2.8 Creatinine Kinase MB 1.93 (Mass) Troponin I < 0.012 Triglycerides Level > 1575 H Cholesterol Level 294 H LDL Cholesterol, Calculated HDL Cholesterol 27 L Cholesterol/HDL Ratio 10.8 Ethyl Alcohol Level < 10.0 H Bedside Glucose 230 H 209 320 H Test 06/20/19 04:36 06/20/19 05:25 06/20/19 06:36 06/20/19 07:34 Bedside Glucose 340 H 260 H 246 H White Blood Count 6.4 Red Blood Count 5.06 Hemoglobin 12.8 L Hematocrit 40.6 L Mean Corpuscular Volume 80.2 L Mean Corpuscular 25.3 L Hemoglobin Mean Corpuscular 31.5 L Hemoglobin Concent Red Cell Distribution 16.0 H Width Platelet Count 257 Mean Platelet Volume 11.9 H Immature Granulocytes % 0.800 H Neutrophils % 78.4 H Lymphocytes % 14.8 L Monocytes % 5.0 Eosinophils % 0.8 Basophils % 0.2 Nucleated Red Blood 0.0 Cells % Immature Granulocytes # 0.050 H Neutrophils # 5.0 Lymphocytes # 0.9 Monocytes # 0.3 Eosinophils # 0.1 Basophils # 0.0 Nucleated Red Blood 0.0 Cells # Sodium Level 139 Potassium Level 3.8 Chloride Level 104 Carbon Dioxide Level 20 L Anion Gap 15 H Blood Urea Nitrogen 22 H Creatinine 1.54 H Est Glomerular Filtrat 46 L Rate mL/min Glucose Level 305 H Calcium Level 9.7 Magnesium Level 1.7 Total Bilirubin 0.4 Direct Bilirubin 0.00 Indirect Bilirubin 0.4 Aspartate Amino 20 Transf (AST/SGOT) Alanine 12 L Aminotransferase (ALT/SG PT) Alkaline Phosphatase 96 Total Protein 8.2 H Albumin 4.3 Globulin 3.90 H Albumin/Globulin Ratio 1.10 Thyroid Stimulating 4.090 Hormone (TSH) Test 06/20/19 11:47 Bedside Glucose 313 H Medications Medication Current Medications Aspirin (Halfprin) 81 mg DAILY PO Last administered on 06/20/19at 08:04; Admin Dose 81 MG; Start 06/20/19 at 09:00 Sodium Chloride 1,000 ml @ 75 mls/hr [id number] IV Last administered on 06/20/19at 07:54; Admin Dose 75 MLS/HR; Start 06/19/19 at 18:36 IV Flush (NS 3 ml) 3 ml PER PROTOCOL IV ; Start 06/19/19 at 19:00 Ondansetron HCl (Zofran Inj) 4 mg Q6H PRN IV NAUSEA/VOMITING; Start 06/19/19 at 19:00 Nitroglycerin (Nitroglycerin (Sl Tab) 0.4 Mg) 1 tab Q5M PRN SL .CHEST PAIN; St art 06/19/19 at 19:00 Acetaminophen (Tylenol Tab) 650 mg Q6H PRN PO .PAIN 1-3 OR TEMP; Start 06/19/19 at 19:00 Docusate Sodium (Colace) 100 mg Q12H PRN PO .CONSTIPATION; Start 06/19/19 at 19:00 Magnesium Hydroxide (Milk Of Mag) 30 ml DAILY PRN PO .CONSTIPATION; Start 06/19/19 at 19:00 Pantoprazole (Protonix Tab) 40 mg DAILY@06 PO Last administered on 06/20/19at 06:38; Admin Dose 40 MG; Start 06/20/19 at 06:00 Heparin Sodium (Porcine) (Heparin (5000 Units/1ml)) 5,000 unit Q12 SC Last administered on 06/20/19at 08:03; Admin Dose 5,000 UNIT; Start 06/19/19 at 21:00 Gemfibrozil (Lopid) 600 mg BID PO Last administered on 06/20/19at 07:55; Admin Dose 600 MG; Start 06/19/19 at 21:00 Insulin Aspart (Novolog Insulin Pen) NOVOLOG *MILD* ALGORITHM WITH MEALS BEDTIME SC Last administered on 06/20/19at 11:52; Admin Dose 5 UNIT; Start 06/19/19 at 21:00 Miscellaneous Information 1 ea NOTE XX ; Start 06/19/19 at 19:30 Glucose (Glutose) 15 gm Q15M PRN PO DECREASED GLUCOSE; Start 06/19/19 at 19:30 Glucose (Glutose) 22.5 gm Q15M PRN PO DECREASED GLUCOSE; Start 06/19/19 at 19:30 Dextrose (D50w Syringe) 25 ml Q15M PRN IV DECREASED GLUCOSE; Start 06/19/19 at 19:30 Dextrose (D50w Syringe) 50 ml Q15M PRN IV DECREASED GLUCOSE; Start 06/19/19 at 19:30 Glucagon (Glucagen) 1 mg Q15M PRN IM DECREASED GLUCOSE; Start 06/19/19 at 19:30 Glucose (Glutose) 15 gm Q15M PRN BUCCAL DECREASED GLUCOSE; Start 06/19/19 at 19:30 Atorvastatin Calcium (Lipitor) 80 mg DAILY@21 PO ; Start 06/20/19 at 21:00 Insulin Glargine (Lantus) 16 units DAILY@0800 SC Last administered on 06/20/19at 10:58; Admin Dose 16 UNITS; Start 06/20/19 at 09:00 Labetalol HCl (Labetalol) 20 mg Q2H PRN IV SBP >220, DBP >110; Start 06/20/19 at 09:00 Hydralazine HCl (Apresoline) 10 mg Q4H PRN IV SBP >200; Start 06/20/19 at 09:00 Insulin Aspart (Novolog Insulin Pen) NOVOLOG *MODERATE* ALGORITHM WITH MEALS BEDTIME SC ; Start 06/20/19 at 18:00 LIZANDRO CARRERA MD Jun 20, 2019 15:13
[2019-06-20] MEDS: ATORVASTATIN 80 MG TAB PO SCH (20:48)
[2019-06-21] VITALS (9 sets, daily range): BP systolic 141–225; BP diastolic 68–114; PULSE 63–99; RESP 18–22
[2019-06-21] MEDS: PANTOPRAZOLE (EC) 40 MG TAB PO SCH (06:59)
--- NOTE | 2019-06-21 07:14 | RADRPT ---
Echocardiogram Report Patient Name: PASTORA ESPARZAPatient ID: [id number] : 1955 (63y 9m)Study Date: 06/20/2019 10:27:38 AM Gender: MAccession #: [id number] Tech: Hemanth Fuentes [facility] [[email or web address]] Location: [facility] Ref.Physician: LIZANDRO CARRERA Height(Cm): BSA: Weight(Kg): Quality: AdequateOrder Physician: LIZANDRO CARRERA Account #: Procedures: Echocardiographic Report: Transthoracic echocardiogram with complete 2D, M-Mode, and doppler examination. Indications: Stroke. Measurements: 2D/M Mode Doppler Measurement Value Normal Range Measurement Value Normal Range LVIDd 2D 4.1 [ 4.2 - 5.8 ] cm AV Peak Kayode 1.4 [ 100.0 - 170.0 ] cm/sec LVIDs 2D 3.3 [ 2.5 - 4.0 ] cm AV Peak PG 8.0 [ 2.0 - 9.0 ] mmHg LVPWd 2D 1.2 [ 0.6 - 1.0 ] cm LVOT Peak Kayode 1.1 [ 70.0 - 110.0 ] cm/sec IVSd 2D 1.2 [ 0.6 - 1.0 ] cm LVOT Peak PG 5.0 [ 2.0 - 6.0 ] mmHg AoR Diam 2D 2.8 [ 2.6 - 3.4 ] cm MV E Peak Kayode 1.0 [ 60.0 - 130.0 ] cm/sec EDV 2D 75.9 [ 62.0 - 150.0 ] ml MV A Peak Kayode 0.7 [ 100.0 - 120.0 ] cm/sec ESV 2D 45.1 [ 21.0 - 61.0 ] ml MV E/A 1.4 [ 0.8 - 1.5 ] ratio EF 2D 40.6 [ 52.0 - 72.0 ] percent MV Decel Time 113 [ 104 - 258 ] msec LA Dimen 2D 3.8 [ 3.0 - 4.0 ] cm Lat E` Kayode 0.1 [ 10.0 - 15.0 ] cm/sec Lateral E/E` 15.0 [ 1.0 - 2.0 ] ratio Med E` Kayode 0.1 cm/sec MV E/A 1.4 [ 0.8 - 1.5 ] ratio TR Peak Kayode 2.2 [ 100.0 - 280.0 ] cm/sec TR Peak PG 19.0 mmHg RVSP 29.0 [ 10.0 - 36.0 ] mmHg RA Pressure 10.0 mmHg Findings: Left Ventricle: Lower limits of normal systolic function. Normal left ventricular cavity size. Mild concentric left ventricular hypertrophy. Ejection fraction is visually estimated at 50 %. Tissue Doppler/Mitral Doppler indices are consistent with pseudonormalization with mildly elevated left atrial pressure (Stage II diastolic dysfunction). Right Ventricle: Normal right ventricular size. Normal right ventricular systolic function. Left Atrium: The left atrium is normal in size. Right Atrium: The right atrium is normal in size. Atrial Septum: Bubble study was performed with and with out valsalva indicating no evidence of intra atrial shunt. Mitral Valve: Mitral valve leaflets appear mildly thickened. Mild mitral annular calcification. No mitral valve regurgitation is seen. Aortic Valve: Normal appearance of the aortic valve. No significant aortic stenosis or insufficiency. Tricuspid Valve: Normal appearance and function of the tricuspid valve with trace physiologic regurgitation. The estimated Peak RVSP is 29 mmHg. There is mild tricuspid regurgitation. Pulmonic Valve: Pulmonic valve not well visualized. Pericardium: Small pericardial effusion. Aorta: Normal aortic root. IVC: Normal size and normal respiratory collapse consistent with normal right atrial pressure. Conclusions: Lower limits of normal systolic function. Normal left ventricular cavity size. Mild concentric left ventricular hypertrophy. Ejection fraction is visually estimated at 50 %. Tissue Doppler/Mitral Doppler indices are consistent with pseudonormalization with mildly elevated left atrial pressure (Stage II diastolic dysfunction). Mitral valve leaflets appear mildly thickened. Mild mitral annular calcification. No mitral valve regurgitation is seen. Normal appearance of the aortic valve. No significant aortic stenosis or insufficiency. Normal appearance and function of the tricuspid valve with trace physiologic regurgitation. The estimated Peak RVSP is 29 mmHg. There is mild tricuspid regurgitation. Small pericardial effusion. Bubble study was performed with and with out valsalva indicating no evidence of intra atrial shunt. Electronically Signed By: Emiliano Gibson 2019-06-21 07:12:57 PDT
[2019-06-21] MEDS: INSULIN ASPART [NOVOLOG] 3 ML PEN SC SCH ×4 (07:40→21:32)
[2019-06-21] MEDS: INSULIN GLARGINE [LANTus] (100 UNITS/ML) SYG SC SCH ×2 (07:40→12:06)
[2019-06-21] MEDS: ASPIRIN (EC) 81 MG TAB PO SCH (08:06)
[2019-06-21] MEDS: GEMFIBROZIL 600 MG TAB PO SCH ×2 (08:06→21:14)
[2019-06-21] MEDS: HEPARIN 5,000 UNIT/1 ML VIAL SC SCH ×2 (08:12→21:33)
--- NOTE | 2019-06-21 10:20 | CONS ---
Assessment/Plan Assessment/Plan Assessment/Plan (Recall) 63 M c/ multiple cerebrovascular risk factors, who presents for evaluation of right hemiparesis and hemisensory loss. MRI brain confirmed an acute L bg/cr infarction.. CUS/CTA head/neck are notable for bicarotid stenosis, worse on the right... TTE is unrevealing A1C 9.5 LDL unable to be calculated.. ESR wnl P: Await RPR Agree w/ asa/lipitor daily for now Vascular surgery evaluation for carotid stenoses PT/OT/ST as necessary Other management and supportive care per primary Will follow Consultation Date/Type/Reason Admit Date/Time Jun 19, 2019 at 17:46 Type of Consult Neurology Reason for Consultation stroke Requesting Provider: LIZANDRO CARRERA MD Date/Time of Note DATE: 06/21/19 TIME: 10:19 24 HR Interval Summary Free Text/Dictation Continues acute care Exam/Review of Systems Exam Vitals Vital Signs Date Temp Pulse Resp B/P (MAP) Pulse Ox O2 O2 Flow FiO2 Time Delivery Rate 06/21/19 98.6 85 176/93 96 Room Air 07:22 (120) 06/21/19 20 04:00 Intake and Output 06/20/19 06/20/19 06/21/19 1515:00 23:00 07:00 IntakeIntake Total 600 ml 1015 ml 1700 ml OutputOutput Total 700 ml 900 ml 1500 ml BalanceBalance -100 ml 115 ml 200 ml Results Result Diagram: 06/21/19 0524 06/21/19 0524 Results 24hrs Laboratory Tests Test 06/20/19 11:47 06/20/19 17:04 06/20/19 20:42 06/21/19 05:24 Bedside Glucose 313 H 196 194 White Blood Count 4.6 #L Red Blood Count 5.04 Hemoglobin 12.8 L Hematocrit 40.3 L Mean Corpuscular Volume 80.0 L Mean Corpuscular 25.4 L Hemoglobin Mean Corpuscular 31.8 L Hemoglobin Concent Red Cell Distribution 16.1 H Width Platelet Count 242 Mean Platelet Volume 11.9 H Immature Granulocytes % 0.900 H Neutrophils % 70.2 Lymphocytes % 19.7 Monocytes % 6.9 Eosinophils % 1.9 Basophils % 0.4 Nucleated Red Blood 0.0 Cells % Immature Granulocytes # 0.040 H Neutrophils # 3.2 Lymphocytes # 0.9 Monocytes # 0.3 Eosinophils # 0.1 Basophils # 0.0 Nucleated Red Blood 0.0 Cells # Sodium Level 139 Potassium Level 4.1 Chloride Level 109 Carbon Dioxide Level 20 L Anion Gap 10 # Blood Urea Nitrogen 18 Creatinine 1.57 H Glucose Level 230 H Calcium Level 9.5 Phosphorus Level 4.9 Magnesium Level 2.2 Albumin 3.7 Test 06/21/19 07:26 Bedside Glucose 201 Medications Medication Current Medications Aspirin (Halfprin) 81 mg DAILY PO Last administered on 06/21/19at 08:06; Admin Dose 81 MG; Start 06/20/19 at 09:00 Sodium Chloride 1,000 ml @ 75 mls/hr [id number] IV Last administered on 06/20/19at 20:14; Admin Dose 75 MLS/HR; Start 06/19/19 at 18:36 IV Flush (NS 3 ml) 3 ml PER PROTOCOL IV ; Start 06/19/19 at 19:00 Ondansetron HCl (Zofran Inj) 4 mg Q6H PRN IV NAUSEA/VOMITING; Start 06/19/19 at 19:00 Nitroglycerin (Nitroglycerin (Sl Tab) 0.4 Mg) 1 tab Q5M PRN SL .CHEST PAIN; Start 06/19/19 at 19:00 Acetaminophen (Tylenol Tab) 650 mg Q6H PRN PO .PAIN 1-3 OR TEMP; Start 06/19/19 at 19:00 Docusate Sodium (Colace) 100 mg Q12H PRN PO .CONSTIPATION; Start 06/19/19 at 19:00 Magnesium Hydroxide (Milk Of Mag) 30 ml DAILY PRN PO .CONSTIPATION; Start 06/19/19 at 19:00 Pantoprazole (Protonix Tab) 40 mg DAILY@06 PO Last administered on 06/21/19at 06:59; Admin Dose 40 MG; Start 06/20/19 at 06:00 Heparin Sodium (Porcine) (Heparin (5000 Units/1ml)) 5,000 unit Q12 SC Last administered on 06/21/19at 08:12; Admin Dose 5,000 UNIT; Start 06/19/19 at 21:00 Gemfibrozil (Lopid) 600 mg BID PO Last administered on 06/21/19at 08:06; Admin Dose 600 MG; Start 06/19/19 at 21:00 Miscellaneous Information 1 ea NOTE XX ; Start 06/19/19 at 19:30 Glucose (Glutose) 15 gm Q15M PRN PO DECREASED GLUCOSE; Start 06/19/19 at 19:30 Glucose (Glutose) 22.5 gm Q15M PRN PO DECREASED GLUCOSE; Start 06/19/19 at 19:30 Dextrose (D50w Syringe) 25 ml Q15M PRN IV DECREASED GLUCOSE; Start 06/19/19 at 19:30 Dextrose (D50w Syringe) 50 ml Q15M PRN IV DECREASED GLUCOSE; Start 06/19/19 at 19:30 Glucagon (Glucagen) 1 mg Q15M PRN IM DECREASED GLUCOSE; Start 06/19/19 at 19:30 Glucose (Glutose) 15 gm Q15M PRN BUCCAL DECREASED GLUCOSE; Start 06/19/19 at 19:30 Atorvastatin Calcium (Lipitor) 80 mg DAILY@21 PO Last administered on 06/20/19at 20:48; Admin Dose 80 MG; Start 06/20/19 at 21:00 Insulin Glargine (Lantus) 16 units DAILY@0800 SC Last administered on 06/21/19at 07:40; Admin Dose 16 UNITS; Start 06/20/19 at 09:00 Labetalol HCl (Labetalol) 20 mg Q2H PRN IV SBP >220, DBP >110 Last administered on 06/21/19at 04:34; Admin Dose 20 MG; Start 06/20/19 at 09:00 Hydralazine HCl (Apresoline) 10 mg Q4H PRN IV SBP >200; Start 06/20/19 at 09:00 Insulin Aspart (Novolog Insulin Pen) NOVOLOG *MODERATE* ALGORITHM WITH MEALS BEDTIME SC Last administered on 06/21/19at 07:40; Admin Dose 4 UNIT; Start 06/20/19 at 18:00 LIZABETH GOODSON Jun 21, 2019 10:20
[2019-06-21] MEDS: SOD CHLORIDE 0.9% 1,000 ML IV SCH (10:26)
--- NOTE | 2019-06-21 10:38 | PN ---
Date/Time of Note Date/Time of Note DATE: 06/21/19 TIME: 10:32 Assessment/Plan VTE Prophylaxis Risk score (from Nsg)>0 risk: 4 SCD applied (from Nsg): Yes Pharmacological prophylaxis: other Lines/Catheters IV Catheter Type (from Nrsg): Peripheral IV Assessment/Plan Assessment/Plan 1. 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 continue permissive HTN with BP okay up to 220/110 - continue on aspirin and statin - Imaging results noted - ECHO with bubble results noted - PT/OT on board 2. Bilateral carotid stenosis - results discussed with patient and family - noted on US with R worse than L - Vascular surgery consulted for further recommendations - continue aspirin and statin 3. Bladder lesion - Urology consulted for further recommendations given concern for mass on US 4. Hypertriglyceridemia - counseled about lifestyle modifications - nutrition consultation placed for teaching - continue statin and gemfibrozil 5. Diabetes Mellitus - DM education consultation appreciated and will increase Lantus to 20 units daily. Will add Linagliptin daily as well. Hold off on Metformin for now given GILBERT vs CKD - A1c noted - ISS and accuchecks 6. HTN - allow for permissive HTN - hold home medications 7. GILBERT - improved since admission but still with Cr 1.57 - Nephrology consulted for further recommendation - Renal US noted with no medical disease or obstruction seen - continue IVF - avoid nephrotoxic agents 8. ETOH use - counseled about cessation 9. past tobacco use - stressed need to continue with cessation 10. Disposition - Continue with permissive HTN for another 24 hours - Awaiting recommendations from Urology and Vascular surgery Result Diagram: 06/21/19 0524 06/21/19 0524 Results 24hrs Laboratory Tests Test 06/20/19 11:47 06/20/19 17:04 06/20/19 20:42 06/21/19 05:24 Bedside Glucose 313 H 196 194 White Blood Count 4.6 #L Red Blood Count 5.04 Hemoglobin 12.8 L Hematocrit 40.3 L Mean Corpuscular Volume 80.0 L Mean Corpuscular 25.4 L Hemoglobin Mean Corpuscular 31.8 L Hemoglobin Concent Red Cell Distribution 16.1 H Width Platelet Count 242 Mean Platelet Volume 11.9 H Immature Granulocytes % 0.900 H Neutrophils % 70.2 Lymphocytes % 19.7 Monocytes % 6.9 Eosinophils % 1.9 Basophils % 0.4 Nucleated Red Blood 0.0 Cells % Immature Granulocytes # 0.040 H Neutrophils # 3.2 Lymphocytes # 0.9 Monocytes # 0.3 Eosinophils # 0.1 Basophils # 0.0 Nucleated Red Blood 0.0 Cells # Sodium Level 139 Potassium Level 4.1 Chloride Level 109 Carbon Dioxide Level 20 L Anion Gap 10 # Blood Urea Nitrogen 18 Creatinine 1.57 H Glucose Level 230 H Calcium Level 9.5 Phosphorus Level 4.9 Magnesium Level 2.2 Albumin 3.7 Test 06/21/19 07:26 Bedside Glucose 201 Subjective 24 Hr Interval Summary Free Text/Dictation Patient still with right upper extremity weakness but able to more RLE more this am. Denies any new neurological symptoms. at bedside. Exam/Review of Systems Exam Vitals Vital Signs Date Temp Pulse Resp B/P (MAP) Pulse Ox O2 O2 Flow FiO2 Time Delivery Rate 06/21/19 98.6 85 176/93 96 Room Air 07:22 (120) 06/21/19 20 04:00 Intake and Output 06/20/19 06/20/19 06/21/19 1515:00 23:00 07:00 IntakeIntake Total 600 ml 1015 ml 1700 ml OutputOutput Total 700 ml 900 ml 1500 ml BalanceBalance -100 ml 115 ml 200 ml Exam General: Patient is sitting up in bed, answering questions appropriately Mentation: Patient is alert and oriented 4 Respiratory: Clear to auscultation bilaterally. no wheezing or rhonchi Cardiovascular: S1, S2, regular rate and rhythm, no obvious murmurs Gastrointestinal:soft, nontender palpation, nondistended, bowel sounds heard. no rebound or guarding Neurological: mild right facial droop, LUE and LLE motor and sensation intact. 1/5 RUE and 3/5 RLE strength. diminished sensation RUE and RLE. Skin: No new skin lesions Results Results 24hrs Laboratory Tests Test 06/20/19 11:47 06/20/19 17:04 06/20/19 20:42 06/21/19 05:24 Bedside Glucose 313 H 196 194 White Blood Count 4.6 #L Red Blood Count 5.04 Hemoglobin 12.8 L Hematocrit 40.3 L Mean Corpuscular Volume 80.0 L Mean Corpuscular 25.4 L Hemoglobin Mean Corpuscular 31.8 L Hemoglobin Concent Red Cell Distribution 16.1 H Width Platelet Count 242 Mean Platelet Volume 11.9 H Immature Granulocytes % 0.900 H Neutrophils % 70.2 Lymphocytes % 19.7 Monocytes % 6.9 Eosinophils % 1.9 Basophils % 0.4 Nucleated Red Blood 0.0 Cells % Immature Granulocytes # 0.040 H Neutrophils # 3.2 Lymphocytes # 0.9 Monocytes # 0.3 Eosinophils # 0.1 Basophils # 0.0 Nucleated Red Blood 0.0 Cells # Sodium Level 139 Potassium Level 4.1 Chloride Level 109 Carbon Dioxide Level 20 L Anion Gap 10 # Blood Urea Nitrogen 18 Creatinine 1.57 H Glucose Level 230 H Calcium Level 9.5 Phosphorus Level 4.9 Magnesium Level 2.2 Albumin 3.7 Test 06/21/19 07:26 Bedside Glucose 201 Medications Medication Current Medications Aspirin (Halfprin) 81 mg DAILY PO Last administered on 06/21/19at 08:06; Admin Dose 81 MG; Start 06/20/19 at 09:00 Sodium Chloride 1,000 ml @ 75 mls/hr [id number] IV Last administered on 06/21/19at 10:26; Admin Dose 75 MLS/HR; Start 06/19/19 at 18:36 IV Flush (NS 3 ml) 3 ml PER PROTOCOL IV ; Start 06/19/19 at 19:00 Ondansetron HCl (Zofran Inj) 4 mg Q6H PRN IV NAUSEA/VOMITING; Start 06/19/19 at 19:00 Nitroglycerin (Nitroglycerin (Sl Tab) 0.4 Mg) 1 tab Q5M PRN SL .CHEST PAIN; Start 06/19/19 at 19:00 Acetaminophen (Tylenol Tab) 650 mg Q6H PRN PO .PAIN 1-3 OR TEMP; Start 06/19/19 at 19:00 Docusate Sodium (Colace) 100 mg Q12H PRN PO .CONSTIPATION; Start 06/19/19 at 19:00 Magnesium Hydroxide (Milk Of Mag) 30 ml DAILY PRN PO .CONSTIPATION; Start 06/19/19 at 19:00 Pantoprazole (Protonix Tab) 40 mg DAILY@06 PO Last administered on 06/21/19at 06:59; Admin Dose 40 MG; Start 06/20/19 at 06:00 Heparin Sodium (Porcine) (Heparin (5000 Units/1ml)) 5,000 unit Q12 SC Last administered on 06/21/19at 08:12; Admin Dose 5,000 UNIT; Start 06/19/19 at 21:00 Gemfibrozil (Lopid) 600 mg BID PO Last administered on 06/21/19at 08:06; Admin Dose 600 MG; Start 06/19/19 at 21:00 Miscellaneous Information 1 ea NOTE XX ; Start 06/19/19 at 19:30 Glucose (Glutose) 15 gm Q15M PRN PO DECREASED GLUCOSE; Start 06/19/19 at 19:30 Glucose (Glutose) 22.5 gm Q15M PRN PO DECREASED GLUCOSE; Start 06/19/19 at 19:30 Dextrose (D50w Syringe) 25 ml Q15M PRN IV DECREASED GLUCOSE; Start 06/19/19 at 19:30 Dextrose (D50w Syringe) 50 ml Q15M PRN IV DECREASED GLUCOSE; Start 06/19/19 at 19:30 Glucagon (Glucagen) 1 mg Q15M PRN IM DECREASED GLUCOSE; Start 06/19/19 at 19:30 Glucose (Glutose) 15 gm Q15M PRN BUCCAL DECREASED GLUCOSE; Start 06/19/19 at 19:30 Atorvastatin Calcium (Lipitor) 80 mg DAILY@21 PO Last administered on 06/20/19at 20:48; Admin Dose 80 MG; Start 06/20/19 at 21:00 Labetalol HCl (Labetalol) 20 mg Q2H PRN IV SBP >220, DBP >110 Last administered on 06/21/19at 04:34; Admin Dose 20 MG; Start 06/20/19 at 09:00 Hydralazine HCl (Apresoline) 10 mg Q4H PRN IV SBP >200; Start 06/20/19 at 09:00 Insulin Aspart (Novolog Insulin Pen) NOVOLOG *MODERATE* ALGORITHM WITH MEALS BEDTIME SC Last administered on 06/21/19at 07:40; Admin Dose 4 UNIT; Start 06/20/19 at 18:00 Insulin Glargine (Lantus) 20 units DAILY@0800 SC ; Start 06/22/19 at 08:00; Status UNV Linagliptin (Tradjenta) 5 mg DAILY PO ; Start 06/21/19 at 10:30; Status LIZANDRO ROCHE MD Jun 21, 2019 10:38
[2019-06-21] MEDS: LINAGLIPTIN 5 MG TABLET PO SCH (11:52)
--- NOTE | 2019-06-21 15:25 | QN ---
Documentation Comment pt seen and examined FARHAN WHITNEY MD Jun 21, 2019 15:25
--- NOTE | 2019-06-21 16:35 | CONS ---
DATE OF ADMISSION: 06/19/2019 DATE OF CONSULTATION: 06/21/2019 TYPE OF CONSULTATION: Vascular. REFERRING PHYSICIAN: Ange Lantigua MD REASON FOR CONSULTATION: Carotid stenosis and stroke. HISTORY OF PRESENT ILLNESS: This is a very pleasant 63-year-old gentleman with diabetes, hypertensio n, hypercholesterolemia. He presented yesterday with right-sided hemiparesis. He really has a dense hemiparesis. He has no speech disturbance. He is able to speak fluently. He has no aphasia. He s peaks mostly Hebrew, but I am able to converse with him well. He has had no change in his mental s tatus overnight. He was outside the window for tPA and was not treated with thrombolysis. He is a f ormer smoker. He stopped several years ago. He was a heavy smoker prior to that. He had carotid du plex scan done that showed a high-grade right mid internal carotid stenosis and the left proximal int ernal carotid stenosis in the 50% to 69% range. On the right, it was greater than 70%. He also had an MRI of the brain that showed acute infarct in the left posterior basal ganglia and parietal claudio radiata, old infarction in the right side. He also has a severe stenosis of the cavernous internal carotid on the right. It was noted on the MRI of the brain. He has been seen by Dr. Kumari from neur ology. He is getting aspirin and high dose statin. Currently, he is having progressive hypertension . PAST MEDICAL HISTORY: Significant for diabetes, hypertension, hypercholesterolemia. He has never carmona d any prior stroke and no ME in the past. He is sort of light smoker in the past but he stopped 3 or 4 years ago. PAST SURGICAL HISTORY: He has never had any surgery other than hemorrhoids many years ago. MEDICATIONS: Currently consist of: 1. Insulin. 2. Tradjenta. 3. Lipitor. 4. NovoLog. 5. Aspirin 81 mg. 6. Labetalol. 7. Hydralazine. 8. Lopid. 9. Nitroglycerin. ALLERGIES: HE HAS NO KNOWN DRUG ALLERGIES. SOCIAL HISTORY: He is a former smoker. He stopped 3 or 4 years ago and was only smoking 3 cigarette s a day prior to that. He is not a heavy drinker. He drinks beer every other day. He does not use any illicit drugs. He lives with his who is him today. She is a good historian. FAMILY HISTORY: Significant for diabetes in his mother. REVIEW OF SYSTEMS: He currently denies any chest pain, shortness of breath, nausea, vomiting, diarrh ea. No fever, no chills, no recent weight gain or weight loss. He has a dense right hemiparesis. H e is not able to move it at all. He has got some facial asymmetry. His speech is fluent. He is not having any trouble understanding or coming up with words. He has had no problems moving the left si de. PHYSICAL EXAMINATION: GENERAL: He is an elderly Hebrew gentleman. He is awake and alert and fully conversant. He is a good historian. He has no acute specific complaints. VITAL SIGNS: He has been afebrile. His blood pressure is 194/104, heart rate is 89, respiratory rat e is 22. He is 96% sat on room air. PERIPHERAL VASCULAR: He has 2+ radial and brachial pulses bilaterally, 2+ carotid pulses bilaterally . LUNGS: Clear. HEART: Regular rate and rhythm. ABDOMEN: Soft, nontender, nondistended. EXTREMITIES: He has 2+ femoral pulses bilaterally. I do not feel popliteal, DP or PT pulses in [facility] er lower extremity. He has no ulcers. He does say before this event he is getting pain in his legs when he walks. He has no rest pain. DIAGNOSTIC DATA: Again, I reviewed his imaging studies with findings as above with high-grade right internal carotid stenosis, moderate left internal carotid stenosis in the 50% to 69% range. He also has a high-grade intracranial stenosis on the right and MRI showing an acute infarct on the left and an old infarct on the right. IMPRESSION: Right-sided hemiparesis from an acute stroke involving the left brain with MRI evidence of acute stroke on the left. The right internal carotid is severely stenotic in the neck and severe intracranial stenosis, so he is getting poor flow from that but the left has a moderate stenosis in t he 50% to 69% range. I would like to get a CT angiogram just to confirm that there is a significant stenosis on the left and not just compensatory elevated velocity from high flow because of the severe disease on the right. His creatinine is currently a little elevated. He is getting past medical ma nagement. I would not operate on this right away. I will await least 4 or 5 days. I would like to order CT angiogram once his creatinine has come back down and maybe with some hydration. We will get a nephrology consultation to optimize his kidney function and order CT angiogram of the neck and if that confirms moderate stenosis on the left, he would benefit from endarterectomy to prevent recurren t stroke and could potentially lose his speech function. He also has severe disease on the right and has another stroke in the left, he may end up with much more severe deficits in his mentation and se nsorium. I discussed that with him and his . I will follow him along with you. Dictated By: NERI BARAJAS/FLORIN Conf#: [id number] DID#: [id number] CC: LIZABETH KUMARI; ANGE LANTIGUA MD; FARHAN WHITNEY;*EndCC*
--- NOTE | 2019-06-21 18:26 | CONS ---
DATE OF ADMISSION: 06/19/2019 DATE OF CONSULTATION: TYPE OF CONSULTATION: Renal. REASON FOR CONSULTATION: Renal insufficiency. HISTORY OF PRESENTING ILLNESS: This is a 63-year-old male with a past medical history of hypertensio n, diabetes, hyperlipidemia, presented to the emergency department on [facility] on 06/19/2019 due to acute onset of right-sided weakness since 10:00 a.m. The patient has been experie ncing right-sided numbness and discomfort for 7 months and was supposed to see his PCP the day after. The patient denies any dizziness, blurry vision, difficulty speech, nausea, vomiting. The patient was seen. Code stroke was called. The patient was noted to have a blood pressure of 160s at the thania e of admission. The patient had a CT of the head on admission that showed remote infarct in the righ t parietal lobe; however MRI was consistent with acute infarct in the left posterior basal ganglia an d parietal claudio radiata. The patient had severe stenosis of the right cavernous internal carotid a rtery. The patient also had a CT angio brain, neck aortic arch that showed approximately 21 mm high grade stenosis in origin of cervical segment of right ICA, approximately 18 mm segment of mild stenos is involving origin, segment of left internal ICA . The patient had been followed by neurology and also by primary services. Currently, the patient is feeling better. The blood pressure has been 144/76. The patient has been afebrile, heart rate 65, respirations 22, saturating 96% on room air. On admission, creatinine was 1.75. BUN was 20. Potassium was 4.2. Today, the creatinine is 1.5. W manuel count 4.6, hemoglobin 12.8, platelet count 242. INR of 0.97. The patient also had a carotid Do ppler study that showed high grade stenosis in the right ICA, 69% on left ICA. The patient also had a renal ultrasound that showed no cortical thinning. Urinary bladder is remarkable for presence of n onmobile echogenic lesion suspicious for mass and suggested cystoscopy and renal was consulted. PAST MEDICAL HISTORY: 1. Diabetes. 2. Hypertension. 3. Hyperlipidemia. 4. Hypertriglyceridemia. 5. EtOH use. ALLERGIES: NONE. MEDICATIONS: The patient was taking at home were: 1. Atorvastatin 40. 2. Metoprolol 100. 3. Aspirin 81. 4. Metformin 850 b.i.d. Currently, the medications are: 1. Lantus. 2. Tradjenta. 3. Atorvastatin. 4. Aspirin. 5. Labetalol. 6. Hydralazine. 7. Pantoprazole. 8. Gemfibrozil. 9. Nitroglycerin. 10. The patient is on NS at 75 mL an hour. SOCIAL HISTORY: The patient said that he quits smoking in 12/2018. Occasionally drinks alcohol. De nies any recreational drug use. FAMILY HISTORY: Noncontributory. REVIEW OF SYSTEMS: The patient said that he has been having nocturia for the last few months. Denie s any chest pain, any shortness of breath, any orthopnea, PND, lower extremity edema. Denies any oth er symptoms. PHYSICAL EXAMINATION: VITAL SIGNS: Currently, blood pressure was 144/76, afebrile, pulse 65, respirations 22, saturating 9 6%. GENERAL: The patient is awake, alert, oriented, does not appear to in any acute distress. HEENT: Pupils are equal, round, reactive to light. NECK: Supple. Neck bruit heard. HEART: Regular rate and rhythm. LUNGS: Clear to auscultation bilaterally. ABDOMEN: Soft, nontender, obese, distended. Positive bowel sounds. EXTREMITIES: No clubbing, cyanosis or edema. The patient has right-sided hemiparesis. LABORATORY DATA: Currently creatinine 1.57 with GFR of 46. INR of 4.97. DIAGNOSTIC DATA: Renal ultrasound had showed urinary bladder is remarkable for a nonmobile echogenic lesion suspicious for mass. ASSESSMENT AND PLAN: This is a 63-year-old male who presented with: 1. Likely acute on chronic renal failure. The patient has history of noncompliance in the past, derick gstanding history of diabetes, hypertension. The patient was on metformin at home. Also on renal ul trasound, the patient is noted to have mass in the urinary bladder. The patient also received CT ang io of the head on 06/19/2019. 2. Likely acute kidney injury on chronic kidney disease. 3. Rule out underlying diabetic nephropathy. 4. Diabetes, uncontrolled. 5. Hypertension, uncontrolled. 6. Hypertriglyceridemia. 7. Bladder mass. 9. Carotid stenosis. PLAN: At this period of time, the patient is admitted to telemetry. We will monitor the kidney func tions. It would benefit if patient has any baseline labs prior. We will also get a urinalysis and c heck for protein creatinine ratio. Should the patient get another angiogram, this increases chances of contrast-associated nephropathy. I discussed with the family. We would avoid nephrotoxic agents. Continue with gentle IV fluids. Please contact urology for bladder mass. The patient will likely need cystoscopy. Rest of the treatment will depend of the patient's hospitalization course. Dictated By: FARHAN GORDON/FLORIN Conf#: [id number] DID#: [id number] CC: LIZANDRO CARRERA MD;*EndCC*
[2019-06-21] MEDS: ATORVASTATIN 80 MG TAB PO SCH (21:14)
[2019-06-22] VITALS (9 sets, daily range): BP systolic 177–213; BP diastolic 86–114; PULSE 88–107; RESP 18–22
[2019-06-22] MEDS: SOD CHLORIDE 0.9% 1,000 ML IV SCH (00:32)
[2019-06-22] MEDS: PANTOPRAZOLE (EC) 40 MG TAB PO SCH (06:20)
[2019-06-22] MEDS: INSULIN ASPART [NOVOLOG] 3 ML PEN SC SCH ×4 (08:00→20:49)
[2019-06-22] MEDS: INSULIN GLARGINE [LANTus] (100 UNITS/ML) SYG SC SCH (08:18)
[2019-06-22] MEDS: GEMFIBROZIL 600 MG TAB PO SCH ×2 (08:43→21:10)
[2019-06-22] MEDS: LINAGLIPTIN 5 MG TABLET PO SCH (08:43)
[2019-06-22] MEDS: ASPIRIN (EC) 81 MG TAB PO SCH (08:43)
[2019-06-22] MEDS: HEPARIN 5,000 UNIT/1 ML VIAL SC SCH ×2 (08:46→21:29)
--- NOTE | 2019-06-22 09:53 | PN ---
Date/Time of Note Date/Time of Note DATE: 06/22/19 TIME: 09:49 Assessment/Plan Lines/Catheters IV C[facility]ter [facility] (from [facility]): Peripheral IV Assessment/Plan Assessment/Plan He had a CTA of the neck several days ago along with CTA brain - I reviewed the scan and the L carotid has no significant stenosis, no ulceration or irregularity that might be a cause for his stroke. The R ICA has a severe stenosis in the neck and another severe intracranial stenosis. His symptoms all involve the L brain. No indication for carotid endarterectomy at this time - the L side is not stenotic and the R is not responsible for his stroke. Continue medical management per neuro. I am available if the are ant further issues. Subjective 24 Hr Interval Summary No new c/o. R sided hemiparesis - significant change, speech fluent. Exam/Review of Systems Vital Signs Vitals Vital Signs Date Temp Pulse Resp B/P (MAP) Pulse Ox O2 O2 Flow FiO2 Time Delivery Rate 06/22/19 98.0 89 22 196/88 96 Room Air 07:41 (124) Intake and Output 06/21/19 06/21/19 06/22/19 1515:00 23:00 07:00 IntakeIntake Total 350 ml 350 ml 1250 ml BalanceBalance 350 ml 350 ml 1250 ml Results Result Diagram: 06/22/19 0516 06/22/19 0516 NERI PERLA MD Jun 22, 2019 09:53
--- NOTE | 2019-06-22 10:06 | PN ---
Date/Time of Note Date/Time of Note DATE: 06/22/19 TIME: 10:01 Assessment/Plan VTE Prophylaxis Risk score (from Nsg)>0 risk: 4 SCD applied (from Nsg): Yes Pharmacological prophylaxis: other Lines/Catheters IV Catheter Type (from Nrsg): Peripheral IV Assessment/Plan Assessment/Plan 1. 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 - continue on aspirin and statin - Imaging results noted - ECHO with bubble results noted 2. Bilateral carotid stenosis - Vascular on board and recommending no intervention at this time. Continue medical management - results discussed with patient and family - noted on US with R worse than L - continue aspirin and statin 3. Bladder lesion - Urology consulted for further recommendations given concern for mass on US 4. Hypertriglyceridemia - counseled about lifestyle modifications - nutrition consultation placed for teaching - continue statin and gemfibrozil 5. Diabetes Mellitus - DM education consultation appreciated. Improvement in sugars after adjustments made to Lantus dose and addition of linagliptin. Will continue adjusting as needed - A1c noted - ISS and accuchecks 6. HTN - allow for permissive HTN per neurology - hold home medications 7. GILBERT - improved since admission but still with Cr 1.50 - Nephrology consultation appreciated - Renal US noted with no medical disease or obstruction seen - continue IVF - avoid nephrotoxic agents 8. ETOH use - counseled about cessation 9. past tobacco use - stressed need to continue with cessation 10. Disposition - Continue monitoring for improvement in renal function. ARU evaluation pending Result Diagram: 06/22/19 0516 06/22/19 0516 Results 24hrs Laboratory Tests Test 06/21/19 11:45 06/21/19 17:27 06/21/19 17:37 06/21/19 21:12 Bedside Glucose 240 H 139 203 Urine Color YELLOW Urine Clarity CLEAR Urine pH 5.0 Urine Specific [place] 1.011 Urine Ketones NEGATIVE Urine Nitrite NEGATIVE Urine Bilirubin NEGATIVE Urine Urobilinogen NEGATIVE Urine Leukocyte Esterase NEGATIVE Urine Microscopic RBC 0 Urine Microscopic WBC 0 Urine Hemoglobin 1+ H Urine Random Creatinine 72.34 Urine Protein/Creatinine 3.91 Ratio Urine Glucose 2+ H Urine Total Protein 283.0 H Urine Opiates Screen Negative Urine Barbiturates Negative Urine Amphetamines Negative Screen Urine Benzodiazepines Negative Screen Urine Cocaine Screen Negative Urine Cannabinoids Negative Test 06/21/19 23:26 06/22/19 05:16 06/22/19 08:12 Bedside Glucose 171 135 White Blood Count 5.1 Red Blood Count 4.63 L Hemoglobin 11.9 L Hematocrit 37.6 L Mean Corpuscular Volume 81.2 L Mean Corpuscular 25.7 L Hemoglobin Mean Corpuscular 31.6 L Hemoglobin Concent Red Cell Distribution 16.4 H Width Platelet Count 237 Mean Platelet Volume 11.7 H Immature Granulocytes % 0.400 Neutrophils % 66.4 Lymphocytes % 23.3 Monocytes % 7.3 Eosinophils % 2.4 Basophils % 0.2 Nucleated Red Blood 0.0 Cells % Immature Granulocytes # 0.020 Neutrophils # 3.4 Lymphocytes # 1.2 Monocytes # 0.4 Eosinophils # 0.1 Basophils # 0.0 Nucleated Red Blood 0.0 Cells # Sodium Level 140 Potassium Level 3.9 Chloride Level 111 H Carbon Dioxide Level 21 Anion Gap 8 Blood Urea Nitrogen 19 Creatinine 1.53 H Glucose Level 138 # Calcium Level 8.9 Phosphorus Level 4.6 Magnesium Level 2.0 Albumin 3.5 Subjective 24 Hr Interval Summary Free Text/Dictation Patient moving his right upper extremity more and denies any new neurological issues. No overnight events. Exam/Review of Systems Exam Vitals Vital Signs Date Temp Pulse Resp B/P (MAP) Pulse Ox O2 O2 Flow FiO2 Time Delivery Rate 06/22/19 98.0 89 22 196/88 96 Room Air 07:41 (124) Intake and Output 06/21/19 06/21/19 06/22/19 1414:59 22:59 06:59 IntakeIntake Total 350 ml 350 ml 1250 ml BalanceBalance 350 ml 350 ml 1250 ml Exam General: Patient is sitting up in bed, answering questions appropriately Mentation: Patient is alert and oriented 4 Respiratory: Clear to auscultation bilaterally. no wheezing or rhonchi Cardiovascular: S1, S2, regular rate and rhythm, no obvious murmurs Gastrointestinal:soft, nontender palpation, nondistended, bowel sounds heard. no rebound or guarding Neurological: LUE and LLE motor and sensation intact. 3/5 RUE and 3/5 RLE strength. diminished sensation RUE and RLE. Skin: No new skin lesions Results Results 24hrs Laboratory Tests Test 06/21/19 11:45 06/21/19 17:27 06/21/19 17:37 8/7/19 21:12 Bedside Glucose 240 H 139 203 Urine Color YELLOW Urine Clarity CLEAR Urine pH 5.0 Urine Specific [place] 1.011 Urine Ketones NEGATIVE Urine Nitrite NEGATIVE Urine Bilirubin NEGATIVE Urine Urobilinogen NEGATIVE Urine Leukocyte Esterase NEGATIVE Urine Microscopic RBC 0 Urine Microscopic WBC 0 Urine Hemoglobin 1+ H Urine Random Creatinine 72.34 Urine Protein/Creatinine 3.91 Ratio Urine Glucose 2+ H Urine Total Protein 283.0 H Urine Opiates Screen Negative Urine Barbiturates Negative Urine Amphetamines Negative Screen Urine Benzodiazepines Negative Screen Urine Cocaine Screen Negative Urine Cannabinoids Negative Test 06/21/19 23:26 06/22/19 05:16 06/22/19 08:12 Bedside Glucose 171 135 White Blood Count 5.1 Red Blood Count 4.63 L Hemoglobin 11.9 L Hematocrit 37.6 L Mean Corpuscular Volume 81.2 L Mean Corpuscular 25.7 L Hemoglobin Mean Corpuscular 31.6 L Hemoglobin Concent Red Cell Distribution 16.4 H Width Platelet Count 237 Mean Platelet Volume 11.7 H Immature Granulocytes % 0.400 Neutrophils % 66.4 Lymphocytes % 23.3 Monocytes % 7.3 Eosinophils % 2.4 Basophils % 0.2 Nucleated Red Blood 0.0 Cells % Immature Granulocytes # 0.020 Neutrophils # 3.4 Lymphocytes # 1.2 Monocytes # 0.4 Eosinophils # 0.1 Basophils # 0.0 Nucleated Red Blood 0.0 Cells # Sodium Level 140 Potassium Level 3.9 Chloride Level 111 H Carbon Dioxide Level 21 Anion Gap 8 Blood Urea Nitrogen 19 Creatinine 1.53 H Glucose Level 138 # Calcium Level 8.9 Phosphorus Level 4.6 Magnesium Level 2.0 Albumin 3.5 Medications Medication Current Medications Aspirin (Halfprin) 81 mg DAILY PO Last administered on 06/22/19at 08:43; Admin Dose 81 MG; Start 06/20/19 at 09:00 Sodium Chloride 1,000 ml @ 75 mls/hr [id number] IV Last administered on 06/22/19at 00:32; Admin Dose 75 MLS/HR; Start 06/19/19 at 18:36 IV Flush (NS 3 ml) 3 ml PER PROTOCOL IV ; Start 06/19/19 at 19:00 Ondansetron HCl (Zofran Inj) 4 mg Q6H PRN IV NAUSEA/VOMITING; Start 06/19/19 at 19:00 Nitroglycerin (Nitroglycerin (Sl Tab) 0.4 Mg) 1 tab Q5M PRN SL .CHEST PAIN; Start 06/19/19 at 19:00 Acetaminophen (Tylenol Tab) 650 mg Q6H PRN PO .PAIN 1-3 OR TEMP; Start 06/19/19 at 19:00 Docusate Sodium (Colace) 100 mg Q12H PRN PO .CONSTIPATION; Start 06/19/19 at 19:00 Magnesium Hydroxide (Milk Of Mag) 30 ml DAILY PRN PO .CONSTIPATION; Start 06/19/19 at 19:00 Pantoprazole (Protonix Tab) 40 mg DAILY@06 PO Last administered on 06/22/19at 06:20; Admin Dose 40 MG; Start 06/20/19 at 06:00 Heparin Sodium (Porcine) (Heparin (5000 Units/1ml)) 5,000 unit Q12 SC Last administered on 06/22/19at 08:46; Admin Dose 5,000 UNIT; Start 06/19/19 at 21:00 Gemfibrozil (Lopid) 600 mg BID PO Last administered on 06/22/19at 08:43; Admin Dose 600 MG; Start 06/19/19 at 21:00 Miscellaneous Information 1 ea NOTE XX ; Start 06/19/19 at 19:30 Glucose (Glutose) 15 gm Q15M PRN PO DECREASED GLUCOSE; Start 06/19/19 at 19:30 Glucose (Glutose) 22.5 gm Q15M PRN PO DECREASED GLUCOSE; Start 06/19/19 at 19:30 Dextrose (D50w Syringe) 25 ml Q15M PRN IV DECREASED GLUCOSE; Start 06/19/19 at 19:30 Dextrose (D50w Syringe) 50 ml Q15M PRN IV DECREASED GLUCOSE; Start 06/19/19 at 19:30 Glucagon (Glucagen) 1 mg Q15M PRN IM DECREASED GLUCOSE; Start 06/19/19 at 19:30 Glucose (Glutose) 15 gm Q15M PRN BUCCAL DECREASED GLUCOSE; Start 06/19/19 at 19:30 Atorvastatin Calcium (Lipitor) 80 mg DAILY@21 PO Last administered on 06/21/19at 21:14; Admin Dose 80 MG; Start 06/20/19 at 21:00 Labetalol HCl (Labetalol) 20 mg Q2H PRN IV SBP >220, DBP >110 Last administered on 06/21/19 04:34; Admin Dose 20 MG; Start 06/20/19 at 09:00 Hydralazine HCl (Apresoline) 10 mg Q4H PRN IV SBP >200; Start 06/20/19 at 09:00 Insulin Aspart (Novolog Insulin Pen) NOVOLOG *MODERATE* ALGORITHM WITH MEALS BEDTIME SC Last administered on 06/21/19at 21:32; Admin Dose 1 UNIT; Start 06/20/19 at 18:00 Insulin Glargine (Lantus) 20 units DAILY@0800 SC Last administered on 06/22/19 08:18; Admin Dose 20 UNITS; Start 06/21/19 at 11:30 Linagliptin (Tradjenta) 5 mg DAILY PO Last administered on 06/22/19 08:43; Admin Dose 5 MG; Start 06/21/19 at 10:30 LIZANDRO CARRERA MD Jun 22, 2019 10:06
--- NOTE | 2019-06-22 13:05 | CONS ---
Assessment/Plan Assessment/Plan Assessment/Plan (Daily) his is a 63-year-old male who presented with: 1. Likely acute on chronic renal failure. The patient has history of noncompliance in the past, longstanding history of diabetes, hypertension. The patient was on metformin at home. Also on renal ultrasound, the patient is noted to have mass in the urinary bladder. The patient also received CT angio of the head on 06/19/2019. with contrast 2. Likely acute kidney injury on chronic kidney disease. he might have CKD with a creatinine of 1.5 in the past it be his new baseline 3. underlying diabetic nephropathy. Proteinuria 4. Diabetes, uncontrolled. 5. Hypertension, uncontrolled. 6. Hypertriglyceridemia. 7. Bladder mass. 9. rt Carotid stenosis. Plan -dc iv Fluids given hypertension -give Norvasc; SBP > 200 patient would also benefit from TASIA or a arb - Urology consult for cystocopy - cw ASA/statin - DM control - renally dose all meds Consultation Date/Type/Reason Admit Date/Time Jun 19, 2019 at 17:46 Initial Consult Date Requesting Provider: LIZANDRO CARRERA MD Date/Time of Note DATE: 06/22/19 TIME: 13:02 24 HR Interval Summary Free Text/Dictation systolic blood pressure over 190 The right upper extremity weakness is improving Exam/Review of Systems Exam Vitals Vital Signs Date Temp Pulse Resp B/P (MAP) Pulse Ox O2 O2 Flow FiO2 Time Delivery Rate 06/22/19 88 177/104 11:45 (128) 06/22/19 98.0 Room Air 11:19 06/22/19 22 96 07:41 Intake and Output 06/21/19 06/21/19 06/22/19 1515:00 23:00 07:00 IntakeIntake Total 350 ml 350 ml 1250 ml BalanceBalance 350 ml 350 ml 1250 ml Exam GENERAL: The patient is awake, alert, oriented, does not appear to in any acute distress. HEENT: Pupils are equal, round, reactive to light. NECK: Supple. Neck bruit heard. HEART: Regular rate and rhythm. LUNGS: Clear to auscultation bilaterally. ABDOMEN: Soft, nontender, obese, distended. Positive bowel sounds. EXTREMITIES: No clubbing, cyanosis or edema. The patient has right-sided hemiparesis. Results Result Diagram: 06/22/19 0516 06/22/19 0516 Results 24hrs Laboratory Tests Test 06/21/19 17:27 06/21/19 17:37 06/21/19 21:12 06/21/19 23:26 Bedside Glucose 139 203 171 Urine Color YELLOW Urine Clarity CLEAR Urine pH 5.0 Urine Specific [place] 1.011 Urine Ketones NEGATIVE Urine Nitrite NEGATIVE Urine Bilirubin NEGATIVE Urine Urobilinogen NEGATIVE Urine Leukocyte Esterase NEGATIVE Urine Microscopic RBC 0 Urine Microscopic WBC 0 Urine Hemoglobin 1+ H Urine Random Creatinine 72.34 Urine Protein/Creatinine 3.91 Ratio Urine Glucose 2+ H Urine Total Protein 283.0 H Urine Opiates Screen Negative Urine Barbiturates Negative Urine Amphetamines Negative Screen Urine Benzodiazepines Negative Screen Urine Cocaine Screen Negative Urine Cannabinoids Negative Test 06/22/19 05:16 06/22/19 08:12 06/22/19 12:08 White Blood Count 5.1 Red Blood Count 4.63 L Hemoglobin 11.9 L Hematocrit 37.6 L Mean Corpuscular Volume 81.2 L Mean Corpuscular 25.7 L Hemoglobin Mean Corpuscular 31.6 L Hemoglobin Concent Red Cell Distribution 16.4 H Width Platelet Count 237 Mean Platelet Volume 11.7 H Immature Granulocytes % 0.400 Neutrophils % 66.4 Lymphocytes % 23.3 Monocytes % 7.3 Eosinophils % 2.4 Basophils % 0.2 Nucleated Red Blood 0.0 Cells % Immature Granulocytes # 0.020 Neutrophils # 3.4 Lymphocytes # 1.2 Monocytes # 0.4 Eosinophils # 0.1 Basophils # 0.0 Nucleated Red Blood 0.0 Cells # Sodium Level 140 Potassium Level 3.9 Chloride Level 111 H Carbon Dioxide Level 21 Anion Gap 8 Blood Urea Nitrogen 19 Creatinine 1.53 H Glucose Level 138 # Calcium Level 8.9 Phosphorus Level 4.6 Magnesium Level 2.0 Albumin 3.5 Bedside Glucose 135 124 Medications Medication Current Medications Aspirin (Halfprin) 81 mg DAILY PO Last administered on 06/22/19at 08:43; Admin Dose 81 MG; Start 06/20/19 at 09:00 IV Flush (NS 3 ml) 3 ml PER PROTOCOL IV ; Start 06/19/19 at 19:00 Ondansetron HCl (Zofran Inj) 4 mg Q6H PRN IV NAUSEA/VOMITING; Start 06/19/19 at 19:00 Nitroglycerin (Nitroglycerin (Sl Tab) 0.4 Mg) 1 tab Q5M PRN SL .CHEST PAIN; Start 06/19/19 at 19:00 Acetaminophen (Tylenol Tab) 650 mg Q6H PRN PO .PAIN 1-3 OR TEMP; Start 06/19/19 at 19:00 Docusate Sodium (Colace) 100 mg Q12H PRN PO .CONSTIPATION; Start 06/19/19 at 19:00 Magnesium Hydroxide (Milk Of Mag) 30 ml DAILY PRN PO .CONSTIPATION; Start 06/19/19 at 19:00 Pantoprazole (Protonix Tab) 40 mg DAILY@06 PO Last administered on 06/22/19at 06:20; Admin Dose 40 MG; Start 06/20/19 at 06:00 Heparin Sodium (Porcine) (Heparin (5000 Units/1ml)) 5,000 unit Q12 SC Last administered on 06/22/19at 08:46; Admin Dose 5,000 UNIT; Start 06/19/19 at 21:00 Gemfibrozil (Lopid) 600 mg BID PO Last administered on 06/22/19at 08:43; Admin Dose 600 MG; Start 06/19/19 at 21:00 Miscellaneous Information 1 ea NOTE XX ; Start 06/19/19 at 19:30 Glucose (Glutose) 15 gm Q15M PRN PO DECREASED GLUCOSE; Start 06/19/19 at 19:30 Glucose (Glutose) 22.5 gm Q15M PRN PO DECREASED GLUCOSE; Start 06/19/19 at 19:30 Dextrose (D50w Syringe) 25 ml Q15M PRN IV DECREASED GLUCOSE; Start 06/19/19 at 19:30 Dextrose (D50w Syringe) 50 ml Q15M PRN IV DECREASED GLUCOSE; Start 06/19/19 at 19:30 Glucagon (Glucagen) 1 mg Q15M PRN IM DECREASED GLUCOSE; Start 06/19/19 at 19:30 Glucose (Glutose) 15 gm Q15M PRN BUCCAL DECREASED GLUCOSE; Start 06/19/19 at 19: 30 Atorvastatin Calcium (Lipitor) 80 mg DAILY@21 PO Last administered on 06/21/19at 21:14; Admin Dose 80 MG; Start 06/20/19 at 21:00 Labetalol HCl (Labetalol) 20 mg Q2H PRN IV SBP >220, DBP >110 Last administered on 06/21/19at 04:34; Admin Dose 20 MG; Start 06/20/19 at 09:00 Hydralazine HCl (Apresoline) 10 mg Q4H PRN IV SBP >200; Start 06/20/19 at 09:00 Insulin Aspart (Novolog Insulin Pen) NOVOLOG *MODERATE* ALGORITHM WITH MEALS BEDTIME SC Last administered on 06/21/19 21:32; Admin Dose 1 UNIT; Start 06/20/19 at 18:00 Insulin Glargine (Lantus) 20 units DAILY@0800 SC Last administered on 06/22/19 08:18; Admin Dose 20 UNITS; Start 06/21/19 at 11:30 Linagliptin (Tradjenta) 5 mg DAILY PO Last administered on 06/22/19 08:43; Admin Dose 5 MG; Start 06/21/19 at 10:30 FARHAN WHITNEY MD Jun 22, 2019 13:05
[2019-06-22] MEDS: AMLODIPINE 5 MG TAB PO SCH ×2 (13:31→21:10)
[2019-06-22] MEDS: ATORVASTATIN 80 MG TAB PO SCH (21:10)
[2019-06-23 03:35] VITALS: BP 125/87; PULSE 76; RESP 18
[2019-06-23 04:18] VITALS: BP 163/90; PULSE 88
[2019-06-23] MEDS: PANTOPRAZOLE (EC) 40 MG TAB PO SCH (05:53)
[2019-06-23] MEDS: INSULIN ASPART [NOVOLOG] 3 ML PEN SC SCH ×4 (07:53→20:43)
[2019-06-23 08:09] VITALS: BP 172/84; PULSE 92; RESP 18
--- NOTE | 2019-06-23 08:50 | PN ---
Date/Time of Note Date/Time of Note DATE: 06/23/19 TIME: 08:50 Assessment/Plan VTE Prophylaxis Risk score (from Ns)>0 risk: 4 SCD applied (from Ns): Yes Pharmacological prophylaxis: NA/contraindicated Pharm contraindication: other Lines/Catheters IV Catheter Type (from Nrsg): Peripheral IV Assessment/Plan Assessment/Plan 1. 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 Will restart home medication for BP control - continue PT/OT - Neurology on board and appreciate recommendations. - continue on aspirin and statin - Imaging results noted - ECHO with bubble results noted 2. Bilateral carotid stenosis - Vascular on board and recommending no intervention at this time. Continue medical management - results discussed with patient and family - continue aspirin and statin 3. Bladder lesion - Urology consulted for further recommendations given concern for mass on US 4. Hypertriglyceridemia - counseled about lifestyle modifications - nutrition consultation placed for teaching - continue statin and gemfibrozil 5. Diabetes Mellitus - DM education consultation appreciated. Improvement in sugars after adjustments made to Lantus dose and addition of linagliptin. Will continue adjusting as needed - A1c noted - ISS and accuchecks 6. HTN - resume home medications and will adjust as needed for proper control 7. GILBERT - improved since admission - Cr 1.47 - Nephrology consultation appreciated - Renal US noted with no medical disease or obstruction seen - continue IVF - avoid nephrotoxic agents 8. ETOH use - counseled about cessation 9. past tobacco use - stressed need to continue with cessation 10. Disposition - Will restart home BP medications - ARU evaluation pending Result Diagram: 06/23/19 0511 06/23/19 0511 Results 24hrs Laboratory Tests Test 06/22/19 12:08 06/22/19 17:38 06/22/19 20:38 06/23/19 01:26 Bedside Glucose 124 169 228 H 129 Test 06/23/19 05:11 06/23/19 07:42 White Blood Count 4.7 L Red Blood Count 4.88 Hemoglobin 12.2 L Hematocrit 39.5 L Mean Corpuscular Volume 80.9 L Mean Corpuscular 25.0 L Hemoglobin Mean Corpuscular 30.9 L Hemoglobin Concent Red Cell Distribution 15.9 H Width Platelet Count 215 Mean Platelet Volume 11.4 H Immature Granulocytes % 0.800 H Neutrophils % 60.0 Lymphocytes % 27.2 Monocytes % 8.6 Eosinophils % 3.0 Basophils % 0.4 Nucleated Red Blood 0.0 Cells % Immature Granulocytes # 0.040 H Neutrophils # 2.8 Lymphocytes # 1.3 Monocytes # 0.4 Eosinophils # 0.1 Basophils # 0.0 Nucleated Red Blood 0.0 Cells # Sodium Level 140 Potassium Level 3.9 Chloride Level 111 H Carbon Dioxide Level 21 Anion Gap 8 Blood Urea Nitrogen 18 Creatinine 1.47 H Glucose Level 138 Calcium Level 9.2 Phosphorus Level 4.7 Magnesium Level 1.9 Albumin 3.7 Bedside Glucose 132 Subjective 24 Hr Interval Summary Free Text/Dictation Patient is complaining of nasal congestion and sore throat. Able to move RUE at elbow joint and raise RLE. No acute overnight events. Exam/Review of Systems Exam Vitals Vital Signs Date Temp Pulse Resp B/P (MAP) Pulse Ox O2 O2 Flow FiO2 Time Delivery Rate 06/23/19 98.3 92 18 172/84 99 Room Air 08:09 (113) Intake and Output 06/22/19 06/22/19 06/23/19 1515:00 23:00 07:00 IntakeIntake Total 380 ml 350 ml OutputOutput Total 100 ml BalanceBalance 380 ml 250 ml Exam General: Patient is sitting up in bed, answering questions appropriately Mentation: Patient is alert and oriented 4 Respiratory: Clear to auscultation bilaterally. no wheezing or rhonchi Cardiovascular: S1, S2, regular rate and rhythm, no obvious murmurs Gastrointestinal:soft, nontender palpation, nondistended, bowel sounds heard. no rebound or guarding Neurological: LUE and LLE motor and sensation intact. 3/5 right forearm to elbow and RLE strength. diminished sensation RUE and RLE. Skin: No new skin lesions Results Results 24hrs Laboratory Tests Test 06/22/19 12:08 06/22/19 17:38 06/22/19 20:38 06/23/19 01:26 Bedside Glucose 124 169 228 H 129 Test 06/23/19 05:11 06/23/19 07:42 White Blood Count 4.7 L Red Blood Count 4.88 Hemoglobin 12.2 L Hematocrit 39.5 L Mean Corpuscular Volume 80.9 L Mean Corpuscular 25.0 L Hemoglobin Mean Corpuscular 30.9 L Hemoglobin Concent Red Cell Distribution 15.9 H Width Platelet Count 215 Mean Platelet Volume 11.4 H Immature Granulocytes % 0.800 H Neutrophils % 60.0 Lymphocytes % 27.2 Monocytes % 8.6 Eosinophils % 3.0 Basophils % 0.4 Nucleated Red Blood 0.0 Cells % Immature Granulocytes # 0.040 H Neutrophils # 2.8 Lymphocytes # 1.3 Monocytes # 0.4 Eosinophils # 0.1 Basophils # 0.0 Nucleated Red Blood 0.0 Cells # Sodium Level 140 Potassium Level 3.9 Chloride Level 111 H Carbon Dioxide Level 21 Anion Gap 8 Blood Urea Nitrogen 18 Creatinine 1.47 H Glucose Level 138 Calcium Level 9.2 Phosphorus Level 4.7 Magnesium Level 1.9 Albumin 3.7 Bedside Glucose 132 Medications Medication Current Medications Aspirin (Halfprin) 81 mg DAILY PO Last administered on 06/22/19at 08:43; Admin Dose 81 MG; Start 06/20/19 at 09:00 IV Flush (NS 3 ml) 3 ml PER PROTOCOL IV ; Start 06/19/19 at 19:00 Ondansetron HCl (Zofran Inj) 4 mg Q6H PRN IV NAUSEA/VOMITING; Start 06/19/19 at 19:00 Nitroglycerin (Nitroglycerin (Sl Tab) 0.4 Mg) 1 tab Q5M PRN SL .CHEST PAIN; Start 06/19/19 at 19:00 Acetaminophen (Tylenol Tab) 650 mg Q6H PRN PO .PAIN 1-3 OR TEMP; Start 06/19/19 at 19:00 Docusate Sodium (Colace) 100 mg Q12H PRN PO .CONSTIPATION; Start 06/19/19 at 19:00 Magnesium Hydroxide (Milk Of Mag) 30 ml DAILY PRN PO .CONSTIPATION; Start 06/19/19 at 19:00 Pantoprazole (Protonix Tab) 40 mg DAILY@06 PO Last administered on 06/23/19at 05:53; Admin Dose 40 MG; Start 06/20/19 at 06:00 Heparin Sodium (Porcine) (Heparin (5000 Units/1ml)) 5,000 unit Q12 SC Last administered on 06/22/19at 21:29; Admin Dose 5,000 UNIT; Start 06/19/19 at 21:00 Gemfibrozil (Lopid) 600 mg BID PO Last administered on 06/22/19at 21:10; Admin Dose 600 MG; Start 06/19/19 at 21:00 Miscellaneous Information 1 ea NOTE XX ; Start 06/19/19 at 19:30 Glucose (Glutose) 15 gm Q15M PRN PO DECREASED GLUCOSE; Start 06/19/19 at 19:30 Glucose (Glutose) 22.5 gm Q15M PRN PO DECREASED GLUCOSE; Start 06/19/19 at 19:30 Dextrose (D50w Syringe) 25 ml Q15M PRN IV DECREASED GLUCOSE; Start 06/19/19 at 19:30 Dextrose (D50w Syringe) 50 ml Q15M PRN IV DECREASED GLUCOSE; Start 06/19/19 at 19:30 Glucagon (Glucagen) 1 mg Q15M PRN IM DECREASED GLUCOSE; Start 06/19/19 at 19:30 Glucose (Glutose) 15 gm Q15M PRN BUCCAL DECREASED GLUCOSE; Start 06/19/19 at 19:30 Atorvastatin Calcium (Lipitor) 80 mg DAILY@21 PO Last administered on 06/22/19at 21:10; Admin Dose 80 MG; Start 06/20/19 at 21:00 Labetalol HCl (Labetalol) 20 mg Q2H PRN IV SBP >220, DBP >110 Last administered on 06/21/19 04:34; Admin Dose 20 MG; Start 06/20/19 at 09:00 Hydralazine HCl (Apresoline) 10 mg Q4H PRN IV SBP >200 Last administered on 06/22/19 16:00; Admin Dose 10 MG; Start 06/20/19 at 09:00 Insulin Aspart (Novolog Insulin Pen) NOVOLOG *MODERATE* ALGORITHM WITH MEALS BEDTIME SC Last administered on 06/22/19at 20:49; Admin Dose 2 UNIT; Start 06/20/19 at 18:00 Insulin Glargine (Lantus) 20 units DAILY@0800 SC Last administered on 06/22/19 08:18; Admin Dose 20 UNITS; Start 06/21/19 at 11:30 Linagliptin (Tradjenta) 5 mg DAILY PO Last administered on 06/22/19 08:43; Admin Dose 5 MG; Start 06/21/19 at 10:30 Amlodipine Besylate (Norvasc) 5 mg BID PO Last administered on 06/22/19 21:10; Admin Dose 5 MG; Start 06/22/19 at 13:00 LIZANDRO CARRERA MD Jun 23, 2019 08:50
[2019-06-23] MEDS ORDERED: METOPROLOL (XL) 100 MG TAB PO SCH (09:00)
[2019-06-23] MEDS: GEMFIBROZIL 600 MG TAB PO SCH ×2 (09:13→20:37)
[2019-06-23] MEDS: ACETAMINOPHEN 325 MG TAB PO PRN (09:13)
[2019-06-23] MEDS: AMLODIPINE 5 MG TAB PO SCH (09:14)
[2019-06-23] MEDS: LINAGLIPTIN 5 MG TABLET PO SCH (09:14)
[2019-06-23] MEDS: ASPIRIN (EC) 81 MG TAB PO SCH (09:14)
[2019-06-23] MEDS: INSULIN GLARGINE [LANTus] (100 UNITS/ML) SYG SC SCH (10:28)
[2019-06-23] MEDS: HEPARIN 5,000 UNIT/1 ML VIAL SC SCH (10:28)
[2019-06-23] MEDS: SALINE 0.65% 45 ML NAS SPRAY NASAL PRN (11:45)
[2019-06-23 12:09] VITALS: BP 173/93; PULSE 83; RESP 18
[2019-06-23] MEDS ORDERED: NIFEdipine (XL) 30 MG TAB PO SCH (14:30)
[2019-06-23 15:44] VITALS: BP 160/86; PULSE 88; RESP 18
--- NOTE | 2019-06-23 15:44 | CONS ---
[facility] Name: Zia Hugo Unit Number: [id number] Date of : 1955 Patient Status: Admitted Inpatient Attending Doctor: Ange Lantigua MD Edit: FARHAN WHITNEY MD on 06/23/19 @ 16:43 nifedipine and b jenae added Assessment/Plan Assessment/Plan Hospital Course (Demo Recall) 1. Likely acute on chronic renal failure. The patient has history of noncompliance in the past, longstanding history of diabetes, hypertension. The patient was on metformin at home. Also on renal ultrasound, the patient is noted to have mass in the urinary bladder. The patient also received CT angio of the head on 06/19/2019. with contrast 2. Likely acute kidney injury on chronic kidney disease. he might have CKD with a creatinine of 1.5 in the past it be his new baseline 3. underlying diabetic nephropathy. Proteinuria 4. Diabetes, uncontrolled. 5. Hypertension, uncontrolled. 6. Hypertriglyceridemia. 7. Bladder mass. 9. Right carotid stenosis. 10. Overweight 11. Microcytic hypochromic anemia 12. right side hemiparesis Assessment/Plan (Daily) -c/w pressure medications per cardiology requests -Creatinine is decreased - Urology consult for cystoscopy. -Iron panel tomorrow - cw ASA/statin - DM control -Normal phosphorus - renally dose all meds Consultation Date/Type/Reason Admit Date/Time Jun 19, 2019 at 17:46 Initial Consult Date 06/20/2019 Type of Consult nephrology Reason for Consultation dr Quiroga Requesting Provider: ANGE LANTIGUA MD Date/Time of Note DATE: 06/23/19 TIME: 15:41 24 HR Interval Summary Free Text/Dictation weakness right side of the body Exam/Review of Systems Exam Vitals Vital Signs Date Temp Pulse Resp B/P (MAP) Pulse Ox O2 O2 Flow FiO2 Time Delivery Rate 06/23/19 98.1 83 18 173/93 96 Room Air 12:09 (119) Intake and Output 06/22/19 06/22/19 06/23/19 1515:00 23:00 07:00 IntakeIntake Total 380 ml 350 ml OutputOutput Total 100 ml BalanceBalance 380 ml 250 ml Exam Eyes: anicteric, EOM's intact, no pallor Nose: no rhinorrhea Neck: supple, no thyromegaly, no carotid bruits Lungs: clear bilaterally, decreased. CVS: regular rate and rhythm, no murmurs Abdomen: soft, bowel sounds present, no hepatosplenomegally, no masses, no rebound or guarding. Rectal: differed. External genitalia: no lesions. Extremities: no edema, DP pulses are palpable Neuro: alert and oriented x 3. right side hemiparesis Gait: unable to detetmine Motor strenght: 0/5+ Sensory exam: able to fell right side , decreased Skin: no lesions, pale Results Result Diagram: 06/23/19 0511 06/23/19 0511 Results 24hrs Laboratory Tests Test 06/22/19 17:38 06/22/19 20:38 06/23/19 01:26 06/23/19 05:11 Bedside Glucose 169 228 H 129 White Blood Count 4.7 L Red Blood Count 4.88 Hemoglobin 12.2 L Hematocrit 39.5 L Mean Corpuscular Volume 80.9 L Mean Corpuscular 25.0 L Hemoglobin Mean Corpuscular 30.9 L Hemoglobin Concent Red Cell Distribution 15.9 H Width Platelet Count 215 Mean Platelet Volume 11.4 H Immature Granulocytes % 0.800 H Neutrophils % 60.0 Lymphocytes % 27.2 Monocytes % 8.6 Eosinophils % 3.0 Basophils % 0.4 Nucleated Red Blood 0.0 Cells % Immature Granulocytes # 0.040 H Neutrophils # 2.8 Lymphocytes # 1.3 Monocytes # 0.4 Eosinophils # 0.1 Basophils # 0.0 Nucleated Red Blood 0.0 Cells # Sodium Level 140 Potassium Level 3.9 Chloride Level 111 H Carbon Dioxide Level 21 Anion Gap 8 Blood Urea Nitrogen 18 Creatinine 1.47 H Glucose Level 138 Calcium Level 9.2 Phosphorus Level 4.7 Magnesium Level 1.9 Albumin 3.7 Test 06/23/19 07:42 06/23/19 11:49 Bedside Glucose 132 196 Medications Medication Current Medications Aspirin (Halfprin) 81 mg DAILY PO Last administered on 06/23/19at 09:14; Admin Do se 81 MG; Start 06/20/19 at 09:00; Status Hold IV Flush (NS 3 ml) 3 ml PER PROTOCOL IV ; Start 06/19/19 at 19:00 Ondansetron HCl (Zofran Inj) 4 mg Q6H PRN IV NAUSEA/VOMITING; Start 06/19/19 at 19:00 Nitroglycerin (Nitroglycerin (Sl Tab) 0.4 Mg) 1 tab Q5M PRN SL .CHEST PAIN; Start 06/19/19 at 19:00 Acetaminophen (Tylenol Tab) 650 mg Q6H PRN PO .PAIN 1-3 OR TEMP Last administered on 06/23/19at 09:13; Admin Dose 650 MG; Start 06/19/19 at 19:00 Docusate Sodium (Colace) 100 mg Q12H PRN PO .CONSTIPATION; Start 06/19/19 at 19:00 Magnesium Hydroxide (Milk Of Mag) 30 ml DAILY PRN PO .CONSTIPATION; Start 06/19/19 at 19:00 Pantoprazole (Protonix Tab) 40 mg DAILY@06 PO Last administered on 06/23/19at 05:53; Admin Dose 40 MG; Start 06/20/19 at 06:00 Gemfibrozil (Lopid) 600 mg BID PO Last administered on 06/23/19at 09:13; Admin Dose 600 MG; Start 06/19/19 at 21:00 Miscellaneous Information 1 ea NOTE XX ; Start 06/19/19 at 19:30 Glucose (Glutose) 15 gm Q15M PRN PO DECREASED GLUCOSE; Start 06/19/19 at 19:30 Glucose (Glutose) 22.5 gm Q15M PRN PO DECREASED GLUCOSE; Start 06/19/19 at 19:30 Dextrose (D50w Syringe) 25 ml Q15M PRN IV DECREASED GLUCOSE; Start 06/19/19 at 19:30 Dextrose (D50w Syringe) 50 ml Q15M PRN IV DECREASED GLUCOSE; Start 06/19/19 at 19:30 Glucagon (Glucagen) 1 mg Q15M PRN IM DECREASED GLUCOSE; Start 06/19/19 at 19:30 Glucose (Glutose) 15 gm Q15M PRN BUCCAL DECREASED GLUCOSE; Start 06/19/19 at 19:30 Atorvastatin Calcium (Lipitor) 80 mg DAILY@21 PO Last administered on 06/22/19 21:10; Admin Dose 80 MG; Start 06/20/19 at 21:00 Hydralazine HCl (Apresoline) 10 mg Q4H PRN IV SBP >170 Last administered on 06/22/19 16:00; Admin Dose 10 MG; Start 06/20/19 at 09:00 Insulin Aspart (Novolog Insulin Pen) NOVOLOG *MODERATE* ALGORITHM WITH MEALS BEDTIME SC Last administered on 06/23/19 12:09; Admin Dose 4 UNIT; Start 06/20/19 at 18:00 Insulin Glargine (Lantus) 20 units DAILY@0800 SC Last administered on 06/23/19 10:28; Admin Dose 20 UNITS; Start 06/21/19 at 11:30 Linagliptin (Tradjenta) 5 mg DAILY PO Last administered on 06/23/19 09:14; Admin Dose 5 MG; Start 06/21/19 at 10:30 Sodium Chloride (Deep Sea) 2 spray Q2 PRN NASAL nasal congestion Last administered on 06/23/19 11:45; Admin Dose 2 SPRAY; Start 06/23/19 at 09:30 Metoprolol Succinate (Toprol Xl) 100 mg BID PO ; Start 06/23/19 at 21:00 Nifedipine (Procardia Xl) 30 mg DAILY PO Last administered on 06/23/19 14:47; Admin Dose 30 MG; Start 06/23/19 at 14:30 MEREDITH LUI NP Jun 23, 2019 15:44
[2019-06-23] MEDS: ATORVASTATIN 80 MG TAB PO SCH (20:37)
[2019-06-23] MEDS: METOPROLOL (XL) 100 MG TAB PO SCH (20:38)
--- NOTE | 2019-06-23 21:41 | CONS ---
Assessment/Plan Assessment/Plan Hospital Course (Demo Recall) 63-year-old male presented to the hospital emergency room on June 19, 2019 because of right hemiparesis. 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 3-bladder lesion seen on ultrasound. 4-dyslipidemia 5-diabetes mellitus 6-hypertension 7-acute kidney injury with a creatinine of 1.47 at the time of admission A urological consultation was requested because of the mass in the bladder on the ultrasound Patient denies any prior history of bladder tumor and no history of gross hematuria. I reviewed the ultrasound and the patient definitely has a mass in the bladder and that is most likely a bladder tumor. I initially scheduled him to undergo transurethral resection of the bladder tumor at 7:30 AM Wednesday, June 24, 2019. However after I talked to the family and the patient and explained to them the procedure and the risks from the procedure especially that he had recent stroke and he does have carotid art sonja stenosis. He definitely has risks of having another stroke. The family is very anxious so is the patient about the risks. Therefore I canceled the surgery for tomorrow. The patient will have to be evaluated by all specialists involved in his care and the family has to be aware of the risks associated with the surgery. I see no immediate urgency to do the surgery now but it will have to be done at the earliest time after he is medically optimized and risk assessed. Consultation Date/Type/Reason Admit Date/Time Jun 19, 2019 at 17:46 Date of Consultation: Jun 23, 2019 Type of Consult Urology Reason for Consultation Bladder tumor on ultrasound Requesting Provider: LIZANDRO CARRERA MD Date/Time of Note DATE: 06/23/19 TIME: 21:15 Hx of Present Illness 63-year-old male presented to the hospital emergency room on June 19, 2019 because of right hemiparesis. 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 3-bladder lesion seen on ultrasound. 4-dyslipidemia 5-diabetes mellitus 6-hypertension 7-acute kidney injury with a creatinine of 1.47 at the time of admission A urological consultation was requested because of the mass in the bladder on the ultrasound Patient denies any prior history of bladder tumor and no history of gross hematu elsa. Constitutional: no complaints Eyes: no complaints ENT: no complaints Respiratory: No shortness of breath Cardiovascular: No chest pain Gastrointestinal: No nausea, No vomiting Genitourinary: No hematuria Musculoskeletal: no complaints Skin: no complaints Neurologic: other (Right hemiparesis) Endocrine: no complaints Lymphatic: no complaints Psychological: no complaints Past Medical History Medical History: diabetes, high cholesterol, hypertension Home Meds Reported Medications Aspirin* (Aspirin* EC) 81 Mg Tablet.dr, 81 MG PO DAILY, TAB 06/19/19 Atorvastatin* (Atorvastatin*) 40 Mg Tablet, 40 MG PO QHS, #30 TAB 06/19/19 Metoprolol Succinate* (Toprol XL*) 100 Mg Tab.sr.24h, 100 MG PO DAILY, #30 TAB 06/19/19 Metformin Hcl* (Metformin Hcl*) 850 Mg Tablet, 850 MG PO WITH BREAKFAST DINNE, # 60 TAB 06/19/19 Medications Current Medications Aspirin (Halfprin) 81 mg DAILY PO Last administered on 06/23/19at 09:14; Admin Dose 81 MG; Start 06/20/19 at 09:00; Status Hold IV Flush (NS 3 ml) 3 ml PER PROTOCOL IV ; Start 06/19/19 at 19:00 Ondansetron HCl (Zofran Inj) 4 mg Q6H PRN IV NAUSEA/VOMITING; Start 06/19/19 at 19:00 Nitroglycerin (Nitroglycerin (Sl Tab) 0.4 Mg) 1 tab Q5M PRN SL .CHEST PAIN; Start 06/19/19 at 19:00 Acetaminophen (Tylenol Tab) 650 mg Q6H PRN PO .PAIN 1-3 OR TEMP Last administered on 06/23/19at 09:13; Admin Dose 650 MG; Start 06/19/19 at 19:00 Docusate Sodium (Colace) 100 mg Q12H PRN PO .CONSTIPATION; Start 06/19/19 at 19:00 Magnesium Hydroxide (Milk Of Mag) 30 ml DAILY PRN PO .CONSTIPATION; Start 06/19/19 at 19:00 Pantoprazole (Protonix Tab) 40 mg DAILY@06 PO Last administered on 06/23/19at 05:53; Admin Dose 40 MG; Start 06/20/19 at 06:00 Gemfibrozil (Lopid) 600 mg BID PO Last administered on 06/23/19 20:37; Admin Dose 600 MG; Start 06/19/19 at 21:00 Miscellaneous Information 1 ea NOTE XX ; Start 06/19/19 at 19:30 Glucose (Glutose) 15 gm Q15M PRN PO DECREASED GLUCOSE; Start 06/19/19 at 19:30 Glucose (Glutose) 22.5 gm Q15M PRN PO DECREASED GLUCOSE; Start 06/19/19 at 19:30 Dextrose (D50w Syringe) 25 ml Q15M PRN IV DECREASED GLUCOSE; Start 06/19/19 at 19:30 Dextrose (D50w Syringe) 50 ml Q15M PRN IV DECREASED GLUCOSE; Start 06/19/19 at 19:30 Glucagon (Glucagen) 1 mg Q15M PRN IM DECREASED GLUCOSE; Start 06/19/19 at 19:30 Glucose (Glutose) 15 gm Q15M PRN BUCCAL DECREASED GLUCOSE; Start 06/19/19 at 19:30 Atorvastatin Calcium (Lipitor) 80 mg DAILY@21 PO Last administered on 06/23/19 20:37; Admin Dose 80 MG; Start 06/20/19 at 21:00 Hydralazine HCl (Apresoline) 10 mg Q4H PRN IV SBP >170 Last administered on 06/22/19 16:00; Admin Dose 10 MG; Start 06/20/19 at 09:00 Insulin Aspart (Novolog Insulin Pen) NOVOLOG *MODERATE* ALGORITHM WITH MEALS BEDTIME SC Last administered on 06/23/19 17:49; Admin Dose 4 UNIT; Start 06/20/19 at 18:00 Insulin Glargine (Lantus) 20 units DAILY@0800 SC Last administered on 06/23/19 10:28; Admin Dose 20 UNITS; Start 06/21/19 at 11:30 Linagliptin (Tradjenta) 5 mg DAILY PO Last administered on 06/23/19 09:14; Admin Dose 5 MG; Start 06/21/19 at 10:30 Sodium Chloride (Deep Sea) 2 spray Q2 PRN NASAL nasal congestion Last administered on 06/23/19 11:45; Admin Dose 2 SPRAY; Start 06/23/19 at 09:30 Metoprolol Succinate (Toprol Xl) 100 mg BID PO Last administered on 8/9/19at 20:38; Admin Dose 100 MG; Start 06/23/19 at 21:00 Nifedipine (Procardia Xl) 30 mg DAILY PO Last administered on 06/23/19at 14:47; Admin Dose 30 MG; Start 06/23/19 at 14:30 Allergies: Coded Allergies: No Known Allergy (Unverified , 06/19/19) Past Surgical History Past Surgical Hx: no surgical history Social History Alcohol Use: other (6 beers daily over past 2 weeks) Smoking Status: Former smoker Drug Use: none Exam/Review of Systems Exam Vitals Vital Signs Date Temp Pulse Resp B/P (MAP) Pulse Ox O2 O2 Flow FiO2 Time Delivery Rate 06/23/19 98.0 88 18 160/86 99 Room Air 15:44 (110) Intake and Output 06/22/19 06/22/19 06/23/19 1515:00 23:00 07:00 IntakeIntake Total 380 ml 350 ml OutputOutput Total 100 ml BalanceBalance 380 ml 250 ml Constitutional: alert, oriented Psych: no complaints Head: normocephalic Eyes: nl conjunctiva ENMT: nl external ears & nose Neck: supple, non-tender Respiratory: normal air movement; No wheezing Cardiovascular: No jugular venous distention (JVD) Gastrointestinal: soft Genitourinary - Male: No CVA tenderness Musculoskeletal: other (Right hemiparesis) Extremities: other (Right hemiparesis); No calf tenderness Neurological: nl mental status, focal weakness (Right hemiparesis) Skin: nl turgor Results Result Diagram: 06/23/19 0511 06/23/19 0511 Results 24hrs Laboratory Tests Test 06/23/19 01:26 06/23/19 05:11 06/23/19 07:42 06/23/19 11:49 Bedside Glucose 129 132 196 White Blood Count 4.7 L Red Blood Count 4.88 Hemoglobin 12.2 L Hematocrit 39.5 L Mean Corpuscular Volume 80.9 L Mean Corpuscular 25.0 L Hemoglobin Mean Corpuscular 30.9 L Hemoglobin Concent Red Cell Distribution 15.9 H Width Platelet Count 215 Mean Platelet Volume 11.4 H Immature Granulocytes % 0.800 H Neutrophils % 60.0 Lymphocytes % 27.2 Monocytes % 8.6 Eosinophils % 3.0 Basophils % 0.4 Nucleated Red Blood 0.0 Cells % Immature Granulocytes # 0.040 H Neutrophils # 2.8 Lymphocytes # 1.3 Monocytes # 0.4 Eosinophils # 0.1 Basophils # 0.0 Nucleated Red Blood 0.0 Cells # Sodium Level 140 Potassium Level 3.9 Chloride Level 111 H Carbon Dioxide Level 21 Anion Gap 8 Blood Urea Nitrogen 18 Creatinine 1.47 H Glucose Level 138 Calcium Level 9.2 Phosphorus Level 4.7 Magnesium Level 1.9 Albumin 3.7 Test 06/23/19 17:15 06/23/19 20:41 Bedside Glucose 157 150 Imaging Imaging Renal and bladder ultrasound: 1. Sonographically normal kidneys bilaterally. No hydronephrosis. No cortical thinning. 2. Urinary bladder is remarkable for the presence of a nonmobile 2.0 x 1.2 x 1.2 cm echogenic lesion, suspicious for a mass. Suggest direct visualization of the bladder via cystoscopy. Medications Medication Current Medications Aspirin (Halfprin) 81 mg DAILY PO Last administered on 06/23/19at 09:14; Admin Dose 81 MG; Start 06/20/19 at 09:00; Status Hold IV Flush (NS 3 ml) 3 ml PER PROTOCOL IV ; Start 06/19/19 at 19:00 Ondansetron HCl (Zofran Inj) 4 mg Q6H PRN IV NAUSEA/VOMITING; Start 06/19/19 at 19:00 Nitroglycerin (Nitroglycerin (Sl Tab) 0.4 Mg) 1 tab Q5M PRN SL .CHEST PAIN; Start 06/19/19 at 19:00 Acetaminophen (Tylenol Tab) 650 mg Q6H PRN PO .PAIN 1-3 OR TEMP Last administered on 06/23/19at 09:13; Admin Dose 650 MG; Start 06/19/19 at 19:00 Docusate Sodium (Colace) 100 mg Q12H PRN PO .CONSTIPATION; Start 06/19/19 at 19:00 Magnesium Hydroxide (Milk Of Mag) 30 ml DAILY PRN PO .CONSTIPATION; Start 06/19/19 at 19:00 Pantoprazole (Protonix Tab) 40 mg DAILY@06 PO Last administered on 06/23/19at 05:53; Admin Dose 40 MG; Start 06/20/19 at 06:00 Gemfibrozil (Lopid) 600 mg BID PO Last administered on 06/23/19at 20:37; Admin Dose 600 MG; Start 06/19/19 at 21:00 Miscellaneous Information 1 ea NOTE XX ; Start 06/19/19 at 19:30 Glucose (Glutose) 15 gm Q15M PRN PO DECREASED GLUCOSE; Start 06/19/19 at 19:30 Glucose (Glutose) 22.5 gm Q15M PRN PO DECREASED GLUCOSE; Start 06/19/19 at 19:30 Dextrose (D50w Syringe) 25 ml Q15M PRN IV DECREASED GLUCOSE; Start 06/19/19 at 19:30 Dextrose (D50w Syringe) 50 ml Q15M PRN IV DECREASED GLUCOSE; Start 06/19/19 at 19:30 Glucagon (Glucagen) 1 mg Q15M PRN IM DECREASED GLUCOSE; Start 06/19/19 at 19:30 Glucose (Glutose) 15 gm Q15M PRN BUCCAL DECREASED GLUCOSE; Start 06/19/19 at 19:30 Atorvastatin Calcium (Lipitor) 80 mg DAILY@21 PO Last administered on 06/23/19 20:37; Admin Dose 80 MG; Start 06/20/19 at 21:00 Hydralazine HCl (Apresoline) 10 mg Q4H PRN IV SBP >170 Last administered on 06/22/19 16:00; Admin Dose 10 MG; Start 06/20/19 at 09:00 Insulin Aspart (Novolog Insulin Pen) NOVOLOG *MODERATE* ALGORITHM WITH MEALS BEDTIME SC Last administered on 06/23/19 17:49; Admin Dose 4 UNIT; Start at 18:00 Insulin Glargine (Lantus) 20 units DAILY@0800 SC Last administered on 06/23/19 10:28; Admin Dose 20 UNITS; Start 06/21/19 at 11:30 Linagliptin (Tradjenta) 5 mg DAILY PO Last administered on 06/23/19 09:14; Admin Dose 5 MG; Start 06/21/19 at 10:30 Sodium Chloride (Deep Sea) 2 spray Q2 PRN NASAL nasal congestion Last administered on 06/23/19 11:45; Admin Dose 2 SPRAY; Start 06/23/19 at 09:30 Metoprolol Succinate (Toprol Xl) 100 mg BID PO Last administered on 06/23/19 20:38; Admin Dose 100 MG; Start 06/23/19 at 21:00 Nifedipine (Procardia Xl) 30 mg DAILY PO Last administered on 06/23/19at 14:47; Admin Dose 30 MG; Start 06/23/19 at 14:30 SHASHANK COOPER MD Jun 23, 2019 21:33
[2019-06-24] VITALS: BP 150/78; PULSE 80; RESP 18
[2019-06-24] MEDS: SALINE 0.65% 45 ML NAS SPRAY NASAL PRN (00:50)
[2019-06-24 04:00] VITALS: BP 163/95; PULSE 78; RESP 18
[2019-06-24] MEDS: PANTOPRAZOLE (EC) 40 MG TAB PO SCH (06:39)
[2019-06-24 07:26] VITALS: BP 164/75; PULSE 97; RESP 18
[2019-06-24] MEDS: NIFEdipine (XL) 30 MG TAB PO SCH ×2 (09:43→20:15)
[2019-06-24] MEDS: GEMFIBROZIL 600 MG TAB PO SCH ×2 (09:44→20:14)
[2019-06-24] MEDS: METOPROLOL (XL) 100 MG TAB PO SCH ×2 (09:44→20:15)
[2019-06-24] MEDS: LINAGLIPTIN 5 MG TABLET PO SCH (09:44)
[2019-06-24] MEDS: INSULIN ASPART [NOVOLOG] 3 ML PEN SC SCH ×5 (09:52→20:25)
[2019-06-24] MEDS: INSULIN GLARGINE [LANTus] (100 UNITS/ML) SYG SC SCH (09:58)
--- NOTE | 2019-06-24 10:53 | PN ---
Date/Time of Note Date/Time of Note DATE: 06/24/19 TIME: 10:34 Assessment/Plan VTE Prophylaxis Risk score (from Nsg)>0 risk: 7 SCD applied (from Nsg): Yes Pharmacological prophylaxis: other Lines/Catheters IV Catheter Type (from Nrsg): Saline Lock Assessment/Plan Assessment/Plan 1. Acute left posterior basal ganglia and parietal infarct - stable and plans for ARU once BP more stable - continue PT/OT - Neurology on board and appreciate recommendations. - continue on aspirin and statin - Imaging results noted - ECHO with bubble results noted 2. Bilateral carotid stenosis - Vascular on board and recommending no intervention at this time. Continue medical management - results discussed with patient and family - continue aspirin and statin 3. Bladder lesion - Urology consultation appreciated and after discussion with family, patient would like to hold off. Will recommend outpatient follow up 4. Hypertriglyceridemia - counseled about lifestyle modifications - nutrition consultation appreciated. will add fish oil to regime - continue statin and gemfibrozil 5. Diabetes Mellitus - DM education consultation appreciated. will continue on Lantus and adjust as needed - A1c noted - ISS and accuchecks 6. HTN - continue home medications and increased BB to BID and added nifedipine BID 7. GILBERT - stable - Cr 1.53 - Nephrology consultation appreciated - Renal US noted with no medical disease or obstruction seen - continue IVF - avoid nephrotoxic agents 8. ETOH use - counseled about cessation 9. past tobacco use - stressed need to continue with cessation 10. Disposition - Adjust BP medications for better control. If remains stable, will d/c to ARU tomorrow - will need to follow up with Urology as outpatient Result Diagram: 06/23/19 0511 06/24/19 0525 Results 24hrs Laboratory Tests Test 06/23/19 11:49 06/23/19 17:15 06/23/19 20:41 06/24/19 05:25 Bedside Glucose 196 157 150 Sodium Level 136 Potassium Level 4.4 Chloride Level 108 Carbon Dioxide Level 20 L Anion Gap 8 Blood Urea Nitrogen 25 H Creatinine 1.53 H Glucose Level 162 Calcium Level 9.3 Phosphorus Level 4.7 Magnesium Level 1.8 Iron Level 56 Total Iron Binding 254 Capacity Percent Iron 22 Saturation Albumin 3.6 Test 06/24/19 07:42 Bedside Glucose 276 H Subjective 24 Hr Interval Summary Free Text/Dictation Patient doing well and no acute overnight events. Decided to hold off on bladder intervention. No acute overnight events. Exam/Review of Systems Exam Vitals Vital Signs Date Temp Pulse Resp B/P (MAP) Pulse Ox O2 O2 Flow FiO2 Time Delivery Rate 06/24/19 98.0 97 18 164/75 96 Room Air 07:26 (104) Intake and Output 06/23/19 06/23/19 06/24/19 1515:00 23:00 07:00 IntakeIntake Total 1300 ml 200 ml OutputOutput Total 1102 ml BalanceBalance 1300 ml -902 ml Exam General: Patient is sitting up in bed, answering questions appropriately Mentation: Patient is alert and oriented 4 Respiratory: Clear to auscultation bilaterally. no wheezing or rhonchi Cardiovascular: S1, S2, regular rate and rhythm, no obvious murmurs Gastrointestinal:soft, nontender palpation, nondistended, bowel sounds heard. no rebound or guarding Neurological: LUE and LLE motor and sensation intact. 3/5 right forearm to elbow and RLE strength. diminished sensation RUE and RLE. Skin: No new skin lesions Results Results 24hrs Laboratory Tests Test 06/23/19 11:49 06/23/19 17:15 06/23/19 20:41 06/24/19 05:25 Bedside Glucose 196 157 150 Sodium Level 136 Potassium Level 4.4 Chloride Level 108 Carbon Dioxide Level 20 L Anion Gap 8 Blood Urea Nitrogen 25 H Creatinine 1.53 H Glucose Level 162 Calcium Level 9.3 Phosphorus Level 4.7 Magnesium Level 1.8 Iron Level 56 Total Iron Binding 254 Capacity Percent Iron 22 Saturation Albumin 3.6 Test 06/24/19 07:42 Bedside Glucose 276 H Medications Medication Current Medications Aspirin (Halfprin) 81 mg DAILY PO Last administered on 06/23/19at 09:14; Admin Dose 81 MG; Start 06/20/19 at 09:00; Status Hold IV Flush (NS 3 ml) 3 ml PER PROTOCOL IV ; Start 06/19/19 at 19:00 Ondansetron HCl (Zofran Inj) 4 mg Q6H PRN IV NAUSEA/VOMITING; Start 06/19/19 at 19:00 Nitroglycerin (Nitroglycerin (Sl Tab) 0.4 Mg) 1 tab Q5M PRN SL .CHEST PAIN; Start 06/19/19 at 19:00 Acetaminophen (Tylenol Tab) 650 mg Q6H PRN PO .PAIN 1-3 OR TEMP Last administered on 06/23/19 09:13; Admin Dose 650 MG; Start 06/19/19 at 19:00 Docusate Sodium (Colace) 100 mg Q12H PRN PO .CONSTIPATION; Start 06/19/19 at 19:00 Magnesium Hydroxide (Milk Of Mag) 30 ml DAILY PRN PO .CONSTIPATION; Start 06/19/19 at 19:00 Pantoprazole (Protonix Tab) 40 mg DAILY@06 PO Last administered on 06/24/19at 06:39; Admin Dose 40 MG; Start 06/20/19 at 06:00 Gemfibrozil (Lopid) 600 mg BID PO Last administered on 06/24/19 09:44; Admin Dose 600 MG; Start 06/19/19 at 21:00 Miscellaneous Information 1 ea NOTE XX ; Start 06/19/19 at 19:30 Glucose (Glutose) 15 gm Q15M PRN PO DECREASED GLUCOSE; Start 06/19/19 at 19:30 Glucose (Glutose) 22.5 gm Q15M PRN PO DECREASED GLUCOSE; Start 06/19/19 at 19:30 Dextrose (D50w Syringe) 25 ml Q15M PRN IV DECREASED GLUCOSE; Start 06/19/19 at 19:30 Dextrose (D50w Syringe) 50 ml Q15M PRN IV DECREASED GLUCOSE; Start 06/19/19 at 19:30 Glucagon (Glucagen) 1 mg Q15M PRN IM DECREASED GLUCOSE; Start 06/19/19 at 19:30 Glucose (Glutose) 15 gm Q15M PRN BUCCAL DECREASED GLUCOSE; Start 06/19/19 at 19:30 Atorvastatin Calcium (Lipitor) 80 mg DAILY@21 PO Last administered on 06/23/19 20:37; Admin Dose 80 MG; Start 06/20/19 at 21:00 Hydralazine HCl (Apresoline) 10 mg Q4H PRN IV SBP >170 Last administered on 06/22/19 16:00; Admin Dose 10 MG; Start 06/20/19 at 09:00 Insulin Aspart (Novolog Insulin Pen) NOVOLOG *MODERATE* ALGORITHM WITH MEALS BEDTIME SC Last administered on 06/24/19 09:52; Admin Dose 8 UNIT; Start 06/20/19 at 18:00 Insulin Glargine (Lantus) 20 units DAILY@0800 SC Last administered on 06/24/19 09:58; Admin Dose 20 UNITS; Start 06/21/19 at 11:30 Linagliptin (Tradjenta) 5 mg DAILY PO Last administered on 06/24/19 09:44; Admin Dose 5 MG; Start 06/21/19 at 10:30 Sodium Chloride (Deep Sea) 2 spray Q2 PRN NASAL nasal congestion Last administered on 06/24/19 00:50; Admin Dose 2 SPRAY; Start 06/23/19 at 09:30 Metoprolol Succinate (Toprol Xl) 100 mg BID PO Last administered on 06/24/19 09:44; Admin Dose 100 MG; Start 06/23/19 at 21:00 Nifedipine (Procardia Xl) 30 mg BID PO Last administered on 06/24/19 09:43; Admin Dose 30 MG; Start 06/24/19 at 09:00 LIZANDRO CARRERA MD Jun 24, 2019 10:53
[2019-06-24 11:10] VITALS: BP 174/84; PULSE 80; RESP 18
--- NOTE | 2019-06-24 11:21 | CONS ---
Assessment/Plan Assessment/Plan Hospital Course (Demo Recall) 1. Likely acute on chronic renal failure. The patient has history of noncompliance in the past, longstanding history of diabetes, hypertension. The patient was on metformin at home. Also on renal ultrasound, the patient is noted to have mass in the urinary bladder. The patient also received CT angio of the head on 06/19/2019. with contrast 2. Likely acute kidney injury on chronic kidney disease. he might have CKD with a creatinine of 1.5 in the past it be his new baseline 3. underlying diabetic nephropathy. Proteinuria 4. Diabetes, uncontrolled. 5. Hypertension, uncontrolled. 6. Hypertriglyceridemia. 7. Bladder mass. 9. Right carotid stenosis. 10. Overweight 11. Microcytic hypochromic anemia 12. right side hemiparesis Assessment/Plan (Daily) creatinine 1.7 same -BS can be better controlled -avoid nephrotoxic drugs Consultation Date/Type/Reason Admit Date/Time Jun 19, 2019 at 17:46 Initial Consult Date 06/20/2019 Type of Consult nephrology Reason for Consultation Dr Quiroga Requesting Provider: LIZANDRO CARRERA MD Date/Time of Note DATE: 06/24/19 TIME: 11:21 Exam/Review of Systems Exam Vitals Vital Signs Date Temp Pulse Resp B/P (MAP) Pulse Ox O2 O2 Flow FiO2 Time Delivery Rate 06/24/19 98.0 80 18 174/84 98 Room Air 11:10 (114) Intake and Output 06/23/19 06/23/19 06/24/19 1515:00 23:00 07:00 IntakeIntake Total 1300 ml 200 ml OutputOutput Total 1102 ml BalanceBalance 1300 ml -902 ml Constitutional: alert, oriented Psych: no complaints Head: normocephalic Eyes: nl conjunctiva, EOMI, nl lids ENMT: nl external ears & nose, nl lips & teeth Neck: supple, thyromegaly; No non-tender, No jvd, No bruits, No masses, No nuchal rigidity, No other Respiratory: clear to auscultation Cardiovascular: regular rate and rhythm Gastrointestinal: soft Musculoskeletal: muscle weakness (right side of the body) Neurological: focal weakness Results Result Diagram: 06/23/19 0511 06/24/19 0525 Results 24hrs Laboratory Tests Test 06/23/19 11:49 06/23/19 17:15 06/23/19 20:41 06/24/19 05:25 Bedside Glucose 196 157 150 Sodium Level 136 Potassium Level 4.4 Chloride Level 108 Carbon Dioxide Level 20 L Anion Gap 8 Blood Urea Nitrogen 25 H Creatinine 1.53 H Glucose Level 162 Calcium Level 9.3 Phosphorus Level 4.7 Magnesium Level 1.8 Iron Level 56 Total Iron Binding 254 Capacity Percent Iron 22 Saturation Albumin 3.6 Test 06/24/19 07:42 Bedside Glucose 276 H Medications Medication Current Medications Aspirin (Halfprin) 81 mg DAILY PO Last administered on 06/23/19at 09:14; Admin Dose 81 MG; Start 06/20/19 at 09:00; Status Hold IV Flush (NS 3 ml) 3 ml PER PROTOCOL IV ; Start 06/19/19 at 19:00 Ondansetron HCl (Zofran Inj) 4 mg Q6H PRN IV NAUSEA/VOMITING; Start 06/19/19 at 19:00 Nitroglycerin (Nitroglycerin (Sl Tab) 0.4 Mg) 1 tab Q5M PRN SL .CHEST PAIN; Start 06/19/19 at 19:00 Acetaminophen (Tylenol Tab) 650 mg Q6H PRN PO .PAIN 1-3 OR TEMP Last administered on 06/23/19at 09:13; Admin Dose 650 MG; Start 06/19/19 at 19:00 Docusate Sodium (Colace) 100 mg Q12H PRN PO .CONSTIPATION; Start 06/19/19 at 19:00 Magnesium Hydroxide (Milk Of Mag) 30 ml DAILY PRN PO .CONSTIPATION; Start 06/19/19 at 19:00 Pantoprazole (Protonix Tab) 40 mg DAILY@06 PO Last administered on 06/24/19at 06:39; Admin Dose 40 MG; Start 06/20/19 at 06:00 Gemfibrozil (Lopid) 600 mg BID PO Last administered on 06/24/19at 09:44; Admin Dose 600 MG; Start 06/19/19 at 21:00 Miscellaneous Information 1 ea NOTE XX ; Start 06/19/19 at 19:30 Glucose (Glutose) 15 gm Q15M PRN PO DECREASED GLUCOSE; Start 06/19/19 at 19:30 Glucose (Glutose) 22.5 gm Q15M PRN PO DECREASED GLUCOSE; Start 06/19/19 at 19:30 Dextrose (D50w Syringe) 25 ml Q15M PRN IV DECREASED GLUCOSE; Start 06/19/19 at 19:30 Dextrose (D50w Syringe) 50 ml Q15M PRN IV DECREASED GLUCOSE; Start 06/19/19 at 19:30 Glucagon (Glucagen) 1 mg Q15M PRN IM DECREASED GLUCOSE; Start 06/19/19 at 19:30 Glucose (Glutose) 15 gm Q15M PRN BUCCAL DECREASED GLUCOSE; Start 06/19/19 at 19:30 Atorvastatin Calcium (Lipitor) 80 mg DAILY@21 PO Last administered on 06/23/19 20:37; Admin Dose 80 MG; Start 06/20/19 at 21:00 Hydralazine HCl (Apresoline) 10 mg Q4H PRN IV SBP >170 Last administered on 06/22/19 16:00; Admin Dose 10 MG; Start 06/20/19 at 09:00 Insulin Aspart (Novolog Insulin Pen) NOVOLOG *MODERATE* ALGORITHM WITH MEALS BEDTIME SC Last administered on 06/24/19 09:52; Admin Dose 8 UNIT; Start 06/20/19 at 18:00 Insulin Glargine (Lantus) 20 units DAILY@0800 SC Last administered on 06/24/19 09:58; Admin Dose 20 UNITS; Start 06/21/19 at 11:30 Linagliptin (Tradjenta) 5 mg DAILY PO Last administered on 06/24/19 09:44; Admin Dose 5 MG; Start 06/21/19 at 10:30 Sodium Chloride (Deep Sea) 2 spray Q2 PRN NASAL nasal congestion Last administered on 06/24/19 00:50; Admin Dose 2 SPRAY; Start 06/23/19 at 09:30 Metoprolol Succinate (Toprol Xl) 100 mg BID PO Last administered on 06/24/19 09:44; Admin Dose 100 MG; Start 06/23/19 at 21:00 Nifedipine (Procardia Xl) 30 mg BID PO Last administered on 06/24/19 09:43; Admin Dose 30 MG; Start 06/24/19 at 09:00 Fish Oil (Fish Oil) 2,000 mg BID PO ; Start 06/24/19 at 11:00 MEREDITH LUI NP Jun 24, 2019 11:21
[2019-06-24] MEDS: FISH OIL 1,000 MG CAP PO SCH ×2 (11:56→20:15)
--- NOTE | 2019-06-24 13:27 | CONS ---
Consult Date/Type/Reason Admit Date/Time Jun 19, 2019 at 17:46 Initial Consult Date 06/23/19 Type of Consultation: Urology Reason for Consultation Bladder tumor Requesting Provider: LIZANDRO CARRERA MD Date/Time of Note DATE: 06/24/19 TIME: 13:22 Subjective Patient was seen and his and his son were at bedside. The patient himself has no complaint Objective Vitals Vital Signs Date Temp Pulse Resp B/P (MAP) Pulse Ox O2 O2 Flow FiO2 Time Delivery Rate 06/24/19 98.0 80 18 174/84 98 Room Air 11:10 (114) Intake and Output 06/23/19 06/23/19 06/24/19 1515:00 23:00 07:00 IntakeIntake Total 1300 ml 200 ml OutputOutput Total 1102 ml BalanceBalance 1300 ml -902 ml Exam Abdomen is soft. Patient does have right hemiparesis. Results/Medications Result Diagram: 06/23/19 0511 06/24/19 0525 Results 24 hrs Laboratory Tests Test 06/23/19 17:15 06/23/19 20:41 06/24/19 05:25 06/24/19 07:42 Bedside Glucose 157 150 276 H Sodium Level 136 Potassium Level 4.4 Chloride Level 108 Carbon Dioxide Level 20 L Anion Gap 8 Blood Urea Nitrogen 25 H Creatinine 1.53 H Glucose Level 162 Calcium Level 9.3 Phosphorus Level 4.7 Magnesium Level 1.8 Iron Level 56 Total Iron Binding 254 Capacity Percent Iron 22 Saturation Albumin 3.6 Test 06/24/19 11:55 Bedside Glucose 124 Home Meds Reported Medications Aspirin* (Aspirin* EC) 81 Mg Tablet.dr, 81 MG PO DAILY, TAB 06/19/19 Atorvastatin* (Atorvastatin*) 40 Mg Tablet, 40 MG PO QHS, #30 TAB 06/19/19 Metoprolol Succinate* (Toprol XL*) 100 Mg Tab.sr.24h, 100 MG PO DAILY, #30 TAB 06/19/19 Metformin Hcl* (Metformin Hcl*) 850 Mg Tablet, 850 MG PO WITH BREAKFAST DINNE, #60 TAB 06/19/19 Medications Current Medications Aspirin (Halfprin) 81 mg DAILY PO Last administered on 06/23/19at 09:14; Admin Dose 81 MG; Start 06/20/19 at 09:00; Status Hold IV Flush (NS 3 ml) 3 ml PER PROTOCOL IV ; Start 06/19/19 at 19:00 Ondansetron HCl (Zofran Inj) 4 mg Q6H PRN IV NAUSEA/VOMITING; Start 06/19/19 at 19:00 Nitroglycerin (Nitroglycerin (Sl Tab) 0.4 Mg) 1 tab Q5M PRN SL .CHEST PAIN; S tart 06/19/19 at 19:00 Acetaminophen (Tylenol Tab) 650 mg Q6H PRN PO .PAIN 1-3 OR TEMP Last administe red on 06/23/19at 09:13; Admin Dose 650 MG; Start 06/19/19 at 19:00 Docusate Sodium (Colace) 100 mg Q12H PRN PO .CONSTIPATION; Start 06/19/19 at 19:00 Magnesium Hydroxide (Milk Of Mag) 30 ml DAILY PRN PO .CONSTIPATION; Start 06/19/19 at 19:00 Pantoprazole (Protonix Tab) 40 mg DAILY@06 PO Last administered on 06/24/19at 06:39; Admin Dose 40 MG; Start 06/20/19 at 06:00 Gemfibrozil (Lopid) 600 mg BID PO Last administered on 06/24/19at 09:44; Admin Dose 600 MG; Start 06/19/19 at 21:00 Miscellaneous Information 1 ea NOTE XX ; Start 06/19/19 at 19:30 Glucose (Glutose) 15 gm Q15M PRN PO DECREASED GLUCOSE; Start 06/19/19 at 19:30 Glucose (Glutose) 22.5 gm Q15M PRN PO DECREASED GLUCOSE; Start 06/19/19 at 19:30 Dextrose (D50w Syringe) 25 ml Q15M PRN IV DECREASED GLUCOSE; Start 06/19/19 at 19:30 Dextrose (D50w Syringe) 50 ml Q15M PRN IV DECREASED GLUCOSE; Start 06/19/19 at 19:30 Glucagon (Glucagen) 1 mg Q15M PRN IM DECREASED GLUCOSE; Start 06/19/19 at 19:30 Glucose (Glutose) 15 gm Q15M PRN BUCCAL DECREASED GLUCOSE; Start 06/19/19 at 19:30 Atorvastatin Calcium (Lipitor) 80 mg DAILY@21 PO Last administered on 06/23/19at 20:37; Admin Dose 80 MG; Start 06/20/19 at 21:00 Hydralazine HCl (Apresoline) 10 mg Q4H PRN IV SBP >170 Last administered on 06/22/19 16:00; Admin Dose 10 MG; Start 06/20/19 at 09:00 Insulin Aspart (Novolog Insulin Pen) NOVOLOG *MODERATE* ALGORITHM WITH MEALS BEDTIME SC Last administered on 06/24/19 09:52; Admin Dose 8 UNIT; Start 06/20/19 at 18:00 Insulin Glargine (Lantus) 20 units DAILY@0800 SC Last administered on 06/24/19 09:58; Admin Dose 20 UNITS; Start 06/21/19 at 11:30 Linagliptin (Tradjenta) 5 mg DAILY PO Last administered on 06/24/19 09:44; Admin Dose 5 MG; Start 06/21/19 at 10:30 Sodium Chloride (Deep Sea) 2 spray Q2 PRN NASAL nasal congestion Last administered on 06/24/19 00:50; Admin Dose 2 SPRAY; Start 06/23/19 at 09:30 Metoprolol Succinate (Toprol Xl) 100 mg BID PO Last administered on 06/24/19 09:44; Admin Dose 100 MG; Start 06/23/19 at 21:00 Nifedipine (Procardia Xl) 30 mg BID PO Last administered on 06/24/19 09:43; Admin Dose 30 MG; Start 06/24/19 at 09:00 Fish Oil (Fish Oil) 2,000 mg BID PO Last administered on 06/24/19 11:56; Admin Dose 2,000 MG; Start 06/24/19 at 11:00 Assessment/Plan Hospital Course (Demo Recall) 63-year-old male presented to the hospital emergency room on June 19, 2019 because of right hemiparesis. 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 3-bladder lesion seen on ultrasound. 4-dyslipidemia 5-diabetes mellitus 6-hypertension 7-acute kidney injury with a creatinine of 1.47 at the time of admission A urological consultation was requested because of the mass in the bladder on the ultrasound Patient denies any prior history of bladder tumor and no history of gross hematuria. I discussed with his son today the problems that include the carotid artery stenosis, the stroke, the bladder tumor. Patient is at high risk of having another stroke at the time of surgery. If we were to do the surgery he should have first if indicated surgery to correct his carotid artery stenosis. Then be reevaluated by neurologist to see if he is optimized to have the surgery for the bladder tumor while stopping his anticoagulation. The son and the of the patient did understand these issues and they will follow-up with the his primary care physician who will then direct them to the appropriate specialists. SHASHANK COOPER MD Jun 24, 2019 13:27
[2019-06-24 15:16] VITALS: BP 144/75; PULSE 73; RESP 18
[2019-06-24 19:53] VITALS: BP 148/83; PULSE 79; RESP 16
[2019-06-24] MEDS: ATORVASTATIN 80 MG TAB PO SCH (20:15)
[2019-06-24] MEDS: ACETAMINOPHEN 325 MG TAB PO PRN (20:28)
[2019-06-25 00:22] VITALS: BP 142/78; PULSE 82; RESP 18
[2019-06-25 04:25] VITALS: BP 137/72; PULSE 71; RESP 17
[2019-06-25] MEDS: PANTOPRAZOLE (EC) 40 MG TAB PO SCH (05:27)
[2019-06-25 07:29] VITALS: BP 119/61; PULSE 73; RESP 18
[2019-06-25] MEDS: LINAGLIPTIN 5 MG TABLET PO SCH (08:34)
[2019-06-25] MEDS: GEMFIBROZIL 600 MG TAB PO SCH ×2 (08:34→21:01)
[2019-06-25] MEDS: NIFEdipine (XL) 30 MG TAB PO SCH ×2 (08:34→21:01)
[2019-06-25] MEDS: FISH OIL 1,000 MG CAP PO SCH ×2 (08:35→21:01)
[2019-06-25] MEDS: METOPROLOL (XL) 100 MG TAB PO SCH ×2 (08:35→21:02)
[2019-06-25] MEDS: INSULIN ASPART [NOVOLOG] 3 ML PEN SC SCH ×4 (08:45→21:00)
[2019-06-25] MEDS: SALINE 0.65% 45 ML NAS SPRAY NASAL PRN (09:40)
[2019-06-25] MEDS: SOD CHLORIDE 0.9% 1,000 ML IV SCH (10:36)
[2019-06-25] MEDS: ASPIRIN (EC) 81 MG TAB PO SCH (10:36)
[2019-06-25] MEDS: INSULIN GLARGINE [LANTus] (100 UNITS/ML) SYG SC SCH (10:45)
--- NOTE | 2019-06-25 10:50 | PN ---
Date/Time of Note Date/Time of Note DATE: 06/25/19 TIME: 10:46 Assessment/Plan VTE Prophylaxis Risk score (from Nsg)>0 risk: 4 SCD applied (from Nsg): Yes Pharmacological prophylaxis: other Lines/Catheters IV Catheter Type (from Nrsg): Saline Lock Urinary Cath still in place: No Assessment/Plan Assessment/Plan 1. Acute left posterior basal ganglia and parietal infarct - continue physical therapy and plans for ARU once Cr more stable - continue PT/OT - Neurology on board and appreciate recommendations. - continue on aspirin and statin - Imaging results noted - ECHO with bubble results noted 2. Bilateral carotid stenosis - Vascular on board and recommending no intervention at this time. Continue medical management - results discussed with patient and family - continue aspirin and statin 3. Bladder lesion - Urology consultation appreciated and after discussion with family, patient would like to hold off. Recommending outpatient follow up in 1 month 4. Hypertriglyceridemia - improving on current medications - counseled about lifestyle modifications - nutrition consultation appreciated - continue statin and gemfibrozil and fish oil. no side effects noted 5. Diabetes Mellitus - DM education consultation appreciated. Lantus increased for better control - A1c noted - ISS and accuchecks 6. HTN - stable on new regime. continue and adjust as needed 7. GILBERT - Cr 1.83 this am and will continue on gentle IVF - avoid nephrotoxic agents - Nephrology consultation appreciated - Renal US noted with no medical disease or obstruction seen - avoid nephrotoxic agents 8. ETOH use - counseled about cessation 9. past tobacco use - stressed need to continue with cessation 10. Disposition - Will give gentle IVF given increase in Cr. Once renal function stabilized, will be cleared for discharge to ARU. Result Diagram: 06/25/19 0527 06/25/19 0527 Results 24hrs Laboratory Tests Test 06/24/19 11:55 06/24/19 17:19 06/24/19 20:18 06/25/19 01:24 Bedside Glucose 124 171 255 H 146 Test 06/25/19 05:27 06/25/19 07:14 White Blood Count 4.8 Red Blood Count 4.59 L Hemoglobin 11.6 L Hematocrit 37.7 L Mean Corpuscular 82.1 Volume Mean Corpuscular 25.3 L Hemoglobin Mean Corpuscular 30.8 L Hemoglobin Concent Red Cell 16.0 H Distribution Width Platelet Count 211 Mean Platelet Volume 11.8 H Immature 0.800 H Granulocytes % Neutrophils % 49.2 Lymphocytes % 36.6 Monocytes % 10.7 Eosinophils % 2.1 Basophils % 0.6 Nucleated Red Blood 0.0 Cells % Immature 0.040 H Granulocytes # Neutrophils # 2.4 Lymphocytes # 1.8 Monocytes # 0.5 Eosinophils # 0.1 Basophils # 0.0 Nucleated Red Blood 0.0 Cells # Sodium Level 139 Potassium Level 4.5 Chloride Level 108 Carbon Dioxide Level 23 Anion Gap 8 Blood Urea Nitrogen 34 H Creatinine 1.83 H Glucose Level 183 Calcium Level 9.3 Phosphorus Level 5.0 H Magnesium Level 2.0 Albumin 3.8 Triglycerides Level 926 H Cholesterol Level 297 H LDL Cholesterol, 87 Calculated HDL Cholesterol 25 L Cholesterol/HDL 11.8 Ratio Bedside Glucose 187 Subjective 24 Hr Interval Summary Free Text/Dictation Patient states he's feeling better and continues with exercises on his own while in bed. Exam/Review of Systems Exam Vitals Vital Signs Date Temp Pulse Resp B/P (MAP) Pulse Ox O2 O2 Flow FiO2 Time Delivery Rate 06/25/19 98.1 73 18 119/61 95 07:29 (80) 06/25/19 Room Air 04:25 Intake and Output 06/24/19 06/24/19 06/25/19 1515:00 23:00 07:00 IntakeIntake Total 710 ml 250 ml OutputOutput Total 950 ml 350 ml BalanceBalance -240 ml -100 ml Exam General: Patient is sitting up in bed, answering questions appropriately Mentation: Patient is alert and oriented 4 Respiratory: Clear to auscultation bilaterally. no wheezing or rhonchi Cardiovascular: S1, S2, regular rate and rhythm, no obvious murmurs Gastrointestinal:soft, nontender palpation, nondistended, bowel sounds heard. no rebound or guarding Neurological: LUE and LLE motor and sensation intact. 3/5 right forearm to elbo w and RLE strength. diminished sensation RUE and RLE. Skin: No new skin lesions Results Results 24hrs Laboratory Tests Test 06/24/19 11:55 06/24/19 17:19 06/24/19 20:18 06/25/19 01:24 Bedside Glucose 124 171 255 H 146 Test 06/25/19 05:27 06/25/19 07:14 White Blood Count 4.8 Red Blood Count 4.59 L Hemoglobin 11.6 L Hematocrit 37.7 L Mean Corpuscular 82.1 Volume Mean Corpuscular 25.3 L Hemoglobin Mean Corpuscular 30.8 L Hemoglobin Concent Red Cell 16.0 H Distribution Width Platelet Count 211 Mean Platelet Volume 11.8 H Immature 0.800 H Granulocytes % Neutrophils % 49.2 Lymphocytes % 36.6 Monocytes % 10.7 Eosinophils % 2.1 Basophils % 0.6 Nucleated Red Blood 0.0 Cells % Immature 0.040 H Granulocytes # Neutrophils # 2.4 Lymphocytes # 1.8 Monocytes # 0.5 Eosinophils # 0.1 Basophils # 0.0 Nucleated Red Blood 0.0 Cells # Sodium Level 139 Potassium Level 4.5 Chloride Level 108 Carbon Dioxide Level 23 Anion Gap 8 Blood Urea Nitrogen 34 H Creatinine 1.83 H Glucose Level 183 Calcium Level 9.3 Phosphorus Level 5.0 H Magnesium Level 2.0 Albumin 3.8 Triglycerides Level 926 H Cholesterol Level 297 H LDL Cholesterol, 87 Calculated HDL Cholesterol 25 L Cholesterol/HDL 11.8 Ratio Bedside Glucose 187 Medications Medication Current Medications Aspirin (Halfprin) 81 mg DAILY PO Last administered on 06/23/19at 09:14; Admin Dose 81 MG; Start 06/20/19 at 09:00 IV Flush (NS 3 ml) 3 ml PER PROTOCOL IV ; Start 06/19/19 at 19:00 Ondansetron HCl (Zofran Inj) 4 mg Q6H PRN IV NAUSEA/VOMITING; Start 06/19/19 at 19:00 Nitroglycerin (Nitroglycerin (Sl Tab) 0.4 Mg) 1 tab Q5M PRN SL .CHEST PAIN; Start 06/19/19 at 19:00 Acetaminophen (Tylenol Tab) 650 mg Q6H PRN PO .PAIN 1-3 OR TEMP Last administered on 06/24/19at 20:28; Admin Dose 650 MG; Start 06/19/19 at 19:00 Docusate Sodium (Colace) 100 mg Q12H PRN PO .CONSTIPATION; Start 06/19/19 at 19:00 Magnesium Hydroxide (Milk Of Mag) 30 ml DAILY PRN PO .CONSTIPATION; Start 06/19/19 at 19:00 Pantoprazole (Protonix Tab) 40 mg DAILY@06 PO Last administered on 06/25/19at 05:27; Admin Dose 40 MG; Start 06/20/19 at 06:00 Gemfibrozil (Lopid) 600 mg BID PO Last administered on 06/25/19 08:34; Admin Dose 600 MG; Start 06/19/19 at 21:00 Miscellaneous Information 1 ea NOTE XX ; Start 06/19/19 at 19:30 Glucose (Glutose) 15 gm Q15M PRN PO DECREASED GLUCOSE; Start 06/19/19 at 19:30 Glucose (Glutose) 22.5 gm Q15M PRN PO DECREASED GLUCOSE; Start 06/19/19 at 19:30 Dextrose (D50w Syringe) 25 ml Q15M PRN IV DECREASED GLUCOSE; Start 06/19/19 at 19:30 Dextrose (D50w Syringe) 50 ml Q15M PRN IV DECREASED GLUCOSE; Start 06/19/19 at 19:30 Glucagon (Glucagen) 1 mg Q15M PRN IM DECREASED GLUCOSE; Start 06/19/19 at 19:30 Glucose (Glutose) 15 gm Q15M PRN BUCCAL DECREASED GLUCOSE; Start 06/19/19 at 19:30 Atorvastatin Calcium (Lipitor) 80 mg DAILY@21 PO Last administered on 06/24/19at 20:15; Admin Dose 80 MG; Start 06/20/19 at 21:00 Hydralazine HCl (Apresoline) 10 mg Q4H PRN IV SBP >170 Last administered on 06/22/19 16:00; Admin Dose 10 MG; Start 06/20/19 at 09:00 Insulin Aspart (Novolog Insulin Pen) NOVOLOG *MODERATE* ALGORITHM WITH MEALS BEDTIME SC Last administered on 06/25/19 08:45; Admin Dose 4 UNIT; Start 06/20/19 at 18:00 Linagliptin (Tradjenta) 5 mg DAILY PO Last administered on 06/25/19 08:34; Admin Dose 5 MG; Start 06/21/19 at 10:30 Sodium Chloride (Deep Sea) 2 spray Q2 PRN NASAL nasal congestion Last administered on 06/25/19 09:40; Admin Dose 2 SPRAY; Start 06/23/19 at 09:30 Metoprolol Succinate (Toprol Xl) 100 mg BID PO Last administered on 06/25/19 08:35; Admin Dose 100 MG; Start 06/23/19 at 21:00 Nifedipine (Procardia Xl) 30 mg BID PO Last administered on 8/11/19at 08:34; Admin Dose 30 MG; Start 06/24/19 at 09:00 Fish Oil (Fish Oil) 2,000 mg BID PO Last administered on 06/25/19at 08:35; Admin Dose 2,000 MG; Start 06/24/19 at 11:00 Insulin Glargine (Lantus) 25 units DAILY@0800 SC ; Start 06/25/19 at 08:00 Sodium Chloride 1,000 ml @ 50 mls/hr Q20H IV ; Start 06/25/19 at 10:30 LIZANDRO CARRERA MD Jun 25, 2019 10:50
[2019-06-25 11:29] VITALS: BP 150/76; PULSE 73; RESP 18
--- NOTE | 2019-06-25 12:29 | CONS ---
Assessment/Plan Assessment/Plan Hospital Course (Demo Recall) 1. Likely acute on chronic renal failure. The patient has history of noncompliance in the past, longstanding history of diabetes, hypertension. The patient was on metformin at home. Also on renal ultrasound, the patient is noted to have mass in the urinary bladder. The patient also received CT angio of the head on 06/19/2019. with contrast 2. Likely acute kidney injury on chronic kidney disease. He might have CKD with a creatinine of 1.5 in the past it be his new baseline 3. underlying diabetic nephropathy. Proteinuria 4. Diabetes, uncontrolled. 5. Hypertension, uncontrolled. 6. Hypertriglyceridemia. 7. Bladder mass. 9. Right carotid stenosis. 10. Overweight 11. Microcytic hypochromic anemia 12. right side hemiparesis Assessment/Plan (Daily) -Cr. is fluctuating -BMP daily right leg is improved -pt has proteinuria -no medications to compromise his nephro function Consultation Date/Type/Reason Admit Date/Time Jun 19, 2019 at 17:46 Initial Consult Date 06/20/2019 Type of Consult nephrology Reason for Consultation Dr Quiroga Requesting Provider: LIZANDRO CARRERA MD Date/Time of Note DATE: 06/25/19 TIME: 12:26 Exam/Review of Systems Exam Vitals Vital Signs Date Temp Pulse Resp B/P (MAP) Pulse Ox O2 O2 Flow FiO2 Time Delivery Rate 06/25/19 97.7 73 18 150/76 94 11:29 (100) 06/25/19 Room Air 04:25 Intake and Output 06/24/19 06/24/19 06/25/19 1515:00 23:00 07:00 IntakeIntake Total 710 ml 250 ml OutputOutput Total 950 ml 350 ml BalanceBalance -240 ml -100 ml Constitutional: alert, oriented Psych: no complaints Head: normocephalic Eyes: nl conjunctiva ENMT: nl external ears & nose, nl lips & teeth Neck: supple Respiratory: clear to auscultation Cardiovascular: regular rate and rhythm Gastrointestinal: soft Genitourinary - Male: CVA tenderness; No nl penis, No nl scrotum, No discharge, No other Musculoskeletal: muscle weakness (right side of the body) Neurological: nl mental status Skin: nl turgor, rash or lesions; No diaphoresis, No ecchymosis, No laceration, No puncture, No other Results Result Diagram: 06/25/19 0527 06/25/19 0527 Results 24hrs Laboratory Tests Test 06/24/19 17:19 06/24/19 20:18 06/25/19 01:24 06/25/19 05:27 Bedside Glucose 171 255 H 146 White Blood Count 4.8 Red Blood Count 4.59 L Hemoglobin 11.6 L Hematocrit 37.7 L Mean Corpuscular 82.1 Volume Mean Corpuscular 25.3 L Hemoglobin Mean Corpuscular 30.8 L Hemoglobin Concent Red Cell 16.0 H Distribution Width Platelet Count 211 Mean Platelet Volume 11.8 H Immature 0.800 H Granulocytes % Neutrophils % 49.2 Lymphocytes % 36.6 Monocytes % 10.7 Eosinophils % 2.1 Basophils % 0.6 Nucleated Red Blood 0.0 Cells % Immature 0.040 H Granulocytes # Neutrophils # 2.4 Lymphocytes # 1.8 Monocytes # 0.5 Eosinophils # 0.1 Basophils # 0.0 Nucleated Red Blood 0.0 Cells # Sodium Level 139 Potassium Level 4.5 Chloride Level 108 Carbon Dioxide Level 23 Anion Gap 8 Blood Urea Nitrogen 34 H Creatinine 1.83 H Glucose Level 183 Calcium Level 9.3 Phosphorus Level 5.0 H Magnesium Level 2.0 Albumin 3.8 Triglycerides Level 926 H Cholesterol Level 297 H LDL Cholesterol, 87 Calculated HDL Cholesterol 25 L Cholesterol/HDL 11.8 Ratio Test 06/25/19 07:14 06/25/19 12:03 Bedside Glucose 187 225 H Medications Medication Current Medications Aspirin (Halfprin) 81 mg DAILY PO Last administered on 06/25/19at 10:36; Admin Dose 81 MG; Start 06/20/19 at 09:00 IV Flush (NS 3 ml) 3 ml PER PROTOCOL IV ; Start 06/19/19 at 19:00 Ondansetron HCl (Zofran Inj) 4 mg Q6H PRN IV NAUSEA/VOMITING; Start 06/19/19 at 19:00 Nitroglycerin (Nitroglycerin (Sl Tab) 0.4 Mg) 1 tab Q5M PRN SL .CHEST PAIN; Start 06/19/19 at 19:00 Acetaminophen (Tylenol Tab) 650 mg Q6H PRN PO .PAIN 1-3 OR TEMP Last administered on 06/24/19at 20:28; Admin Dose 650 MG; Start 06/19/19 at 19:00 Docusate Sodium (Colace) 100 mg Q12H PRN PO .CONSTIPATION; Start 06/19/19 at 19:00 Magnesium Hydroxide (Milk Of Mag) 30 ml DAILY PRN PO .CONSTIPATION; Start 06/19/19 at 19:00 Pantoprazole (Protonix Tab) 40 mg DAILY@06 PO Last administered on 06/25/19at 05:27; Admin Dose 40 MG; Start 06/20/19 at 06:00 Gemfibrozil (Lopid) 600 mg BID PO Last administered on 06/25/19at 08:34; Admin Dose 600 MG; Start 06/19/19 at 21:00 Miscellaneous Information 1 ea NOTE XX ; Start 06/19/19 at 19:30 Glucose (Glutose) 15 gm Q15M PRN PO DECREASED GLUCOSE; Start 06/19/19 at 19:30 Glucose (Glutose) 22.5 gm Q15M PRN PO DECREASED GLUCOSE; Start 06/19/19 at 19:30 Dextrose (D50w Syringe) 25 ml Q15M PRN IV DECREASED GLUCOSE; Start 06/19/19 at 19:30 Dextrose (D50w Syringe) 50 ml Q15M PRN IV DECREASED GLUCOSE; Start 06/19/19 at 19:30 Glucagon (Glucagen) 1 mg Q15M PRN IM DECREASED GLUCOSE; Start 06/19/19 at 19:30 Glucose (Glutose) 15 gm Q15M PRN BUCCAL DECREASED GLUCOSE; Start 06/19/19 at 19:30 Atorvastatin Calcium (Lipitor) 80 mg DAILY@21 PO Last administered on 06/24/19at 20:15; Admin Dose 80 MG; Start 06/20/19 at 21:00 Hydralazine HCl (Apresoline) 10 mg Q4H PRN IV SBP >170 Last administered on 06/22/19at 16:00; Admin Dose 10 MG; Start 06/20/19 at 09:00 Insulin Aspart (Novolog Insulin Pen) NOVOLOG *MODERATE* ALGORITHM WITH MEALS BEDTIME SC Last administered on 06/25/19at 12:22; Admin Dose 6 UNIT; Start 06/20 at 18:00 Linagliptin (Tradjenta) 5 mg DAILY PO Last administered on 06/25/19 08:34; Admin Dose 5 MG; Start 06/21/19 at 10:30 Sodium Chloride (Deep Sea) 2 spray Q2 PRN NASAL nasal congestion Last administered on 06/25/19 09:40; Admin Dose 2 SPRAY; Start 06/23/19 at 09:30 Metoprolol Succinate (Toprol Xl) 100 mg BID PO Last administered on 06/25/19 08:35; Admin Dose 100 MG; Start 06/23/19 at 21:00 Nifedipine (Procardia Xl) 30 mg BID PO Last administered on 06/25/19 08:34; Admin Dose 30 MG; Start 06/24/19 at 09:00 Fish Oil (Fish Oil) 2,000 mg BID PO Last administered on 06/25/19 08:35; Admin Dose 2,000 MG; Start 06/24/19 at 11:00 Insulin Glargine (Lantus) 25 units DAILY@0800 SC Last administered on 06/25/19 10:45; Admin Dose 25 UNITS; Start 06/25/19 at 08:00 Sodium Chloride 1,000 ml @ 50 mls/hr Q20H IV Last administered on 06/25/19 10:36; Admin Dose 50 MLS/HR; Start 06/25/19 at 10:30 MEREDITH LUI NP Jun 25, 2019 12:29
[2019-06-25 16:02] VITALS: BP 133/79; PULSE 71; RESP 18
[2019-06-25] MEDS ORDERED: BISACODYL 10 MG SUPP PR PRN (19:00)
[2019-06-25] MEDS ORDERED: MINERAL OIL 133 ML ENEMA PR PRN (19:00)
[2019-06-25 20:57] VITALS: BP 157/88; PULSE 73; RESP 12
[2019-06-25] MEDS: ATORVASTATIN 80 MG TAB PO SCH (21:00)
[2019-06-26 00:21] VITALS: BP 177/94; PULSE 73; RESP 18
[2019-06-26 04:45] VITALS: BP 150/86; PULSE 77; RESP 18
[2019-06-26] MEDS: SOD CHLORIDE 0.9% 1,000 ML IV SCH (05:32)
[2019-06-26] MEDS: PANTOPRAZOLE (EC) 40 MG TAB PO SCH (05:32)
[2019-06-26 07:37] VITALS: BP 135/73; PULSE 72; RESP 17
[2019-06-26] MEDS: INSULIN GLARGINE [LANTus] (100 UNITS/ML) SYG SC SCH (08:01)
[2019-06-26] MEDS: INSULIN ASPART [NOVOLOG] 3 ML PEN SC SCH ×2 (08:01→12:09)
--- NOTE | 2019-06-26 09:55 | DS ---
Date/Time of Note Date/Time of Note DATE: 06/26/19 TIME: 09:55 Discharge Summary Admission/Discharge Info Admit Date/Time Jun 19, 2019 at 17:46 Discharge Date/Time Patient Condition: Stable Hospital Course Patient is a male who was diagnosed with acute left posterior basal ganglia and parietal infarct. Patient was seen by multiple specialists during this encounter including neurologist for above infarct as well has vascular surgeon for bilateral carotid stenosis, who suggested no intervention at this time and to continue medical management. Patient was also evaluated for incidental bladder lesion and urologist was called. Urologist and family came to an agreement and the family and patient would like to hold off and need a TURB within 1 month with outpatient follow-up.. Also had significant hypertriglyceridemia was started on multiple medications and repeat labs show a downtrend. I recommend repeat labs within 1 month to monitor patient's severely elevated triglycerides and cholesterol. Patient's diabetic medications will likely need to be adjusted on a continuous basis all while keeping in mind of patient's likely chronic kidney disease. Nephrology was also on board to manage patient's acute kidney injury versus chronic kidney disease and I recommend continued follow-up and the acute rehab unit by nephrology in order to trend renal function. Patient will need to follow with multiple specialists including neurology, vascular surgeon, nephrology, urology after discharge. Patient will be sent to acute rehab unit for rehab for his acute CVA for now. Discharge diagnosis Acute left posterior basal ganglia and parietal infarct, stable Bilateral carotid stenosis, stable Bladder lesion, needs TURBT within 1 month outpatient Hypertriglyceridemia Diabetes mellitus Hypertension Acute kidney injury on chronic kidney disease Home Meds Reported Medications Aspirin* (Aspirin* EC) 81 Mg Tablet.dr, 81 MG PO DAILY, TAB 06/19/19 Atorvastatin* (Atorvastatin*) 40 Mg Tablet, 40 MG PO QHS, #30 TAB 06/19/19 Metoprolol Succinate* (Toprol XL*) 100 Mg Tab.sr.24h, 100 MG PO DAILY, #30 TAB 06/19/19 Metformin Hcl* (Metformin Hcl*) 850 Mg Tablet, 850 MG PO WITH BREAKFAST DINNE, #60 TAB 06/19/19 Primary Care Provider Not On Staff Doctor Time spent on discharge: > 30 minutes Pending Labs Laboratory Tests Test 06/25/19 12:03 06/25/19 16:55 06/25/19 20:57 06/26/19 05:22 Bedside 225 213 146 Glucose mg/dL (70-220) mg/dL (70-220) mg/dL (70-220) White Blood 4.8 Count 10^3/ul (4.8-1 0.8) Red Blood 4.93 Count 10^6/ul (4.70- 6.10) Hemoglobin 12.2 g/dl (14.0-18. 0) Hematocrit 40.7 % (42.0-52.0) Mean 82.6 Corpuscular fl (82.0-101.0 Volume ) Mean 24.7 Corpuscular pg (29.0-33.0) Hemoglobin Mean 30.0 Corpuscular g/dl (32.0-37. Hemoglobin Conc 0) ent Red Cell 15.8 Distribution % (11.5-14.5) Width Platelet Count 214 10^3/UL (140-4 15) Mean Platelet 11.7 Volume fl (7.4-10.4) Immature 1.200 Granulocytes % % (0.001-0.429 ) Neutrophils % 60.2 % (39.0-77.0) Lymphocytes % 27.4 % (15.0-51.0) Monocytes % 9.1 % (0.0-11.0) Eosinophils % 1.9 % (0.0-7.0) Basophils % 0.2 % (0.0-2.0) Nucleated Red 0.0 Blood Cells % /100WBC (0.0-0 .0) Immature 0.060 Granulocytes # 10^3/ul (0.0-0 .031) Neutrophils # 2.9 10^3/ul (1.6-7 .5) Lymphocytes # 1.3 10^3/ul (0.8-2 .9) Monocytes # 0.4 10^3/ul (0.3-0 .9) Eosinophils # 0.1 10^3/ul (0.0-0 .5) Basophils # 0.0 10^3/ul (0.0-0 .1) Nucleated Red 0.0 Blood Cells # 10^3/ul (0.0-0 .0) Sodium Level 139 mmol/L (135-14 4) Potassium 4.4 Level mmol/L (3.5-5. 1) Chloride Level 109 mmol/L (97-110 ) Carbon Dioxide 22 Level mmol/L (21-31) Anion Gap 8 (5-13) Blood Urea 34 Nitrogen mg/dl (7-20) Creatinine 1.64 mg/dl (0.61-1. 24) Glucose Level 213 mg/dl (70-220) Calcium Level 9.3 mg/dl (8.4-10. 2) Phosphorus 4.5 Level mg/dl (2.5-4.9 ) Magnesium 2.0 Level mg/dl (1.7-2.5 ) Albumin 3.8 g/dl (3.3-4.9) Test 06/26/19 07:30 Bedside 199 Glucose mg/dL (70-220) HILTON RIOS Jun 26, 2019 09:55
--- NOTE | 2019-06-26 10:23 | CONS ---
Assessment/Plan Assessment/Plan Assessment/Plan (Recall) 63 M c/ multiple cerebrovascular risk factors, who presents for evaluation of right hemiparesis and hemisensory loss. He became plegic on the right on HD#2, but he is now reassuringly able to move h is right arm and leg with moderate strength.. MRI brain confirmed an acute L bg/cr infarction.. CUS/CTA head/neck are notable for bicarotid stenosis, worse on the right... Now s/p vascular surgery eval.. TTE is unrevealing A1C 9.5 LDL unable to be calculated.. ESR wnl P: Acute rehab when able Agree w/ asa/lipitor daily for secondary stroke prevention BP, glucose control and other management and supportive care per primary Consultation Date/Type/Reason Admit Date/Time Jun 19, 2019 at 17:46 Type of Consult Neurology Reason for Consultation stroke Requesting Provider: LIZANDRO CARRERA MD Date/Time of Note DATE: 06/26/19 TIME: 10:22 24 HR Interval Summary Free Text/Dictation Awaiting Tx to rehab Exam/Review of Systems Exam Vitals Vital Signs Date Temp Pulse Resp B/P (MAP) Pulse Ox O2 O2 Flow FiO2 Time Delivery Rate 06/26/19 97.9 72 17 135/73 99 07:37 (93) 06/26/19 Room Air 04:45 Intake and Output 06/25/19 06/25/19 06/26/19 1515:00 23:00 07:00 IntakeIntake Total 450 ml 150 ml OutputOutput Total 400 ml BalanceBalance 450 ml -250 ml Results Result Diagram: 06/26/19 0522 06/26/19 0522 Results 24hrs Laboratory Tests Test 06/25/19 12:03 06/25/19 16:55 06/25/19 20:57 06/26/19 05:22 Bedside Glucose 225 H 213 146 White Blood Count 4.8 Red Blood Count 4.93 Hemoglobin 12.2 L Hematocrit 40.7 L Mean Corpuscular 82.6 Volume Mean Corpuscular 24.7 L Hemoglobin Mean Corpuscular 30.0 L Hemoglobin Concent Red Cell 15.8 H Distribution Width Platelet Count 214 Mean Platelet Volume 11.7 H Immature 1.200 H Granulocytes % Neutrophils % 60.2 Lymphocytes % 27.4 Monocytes % 9.1 Eosinophils % 1.9 Basophils % 0.2 Nucleated Red Blood 0.0 Cells % Immature 0.060 H Granulocytes # Neutrophils # 2.9 Lymphocytes # 1.3 Monocytes # 0.4 Eosinophils # 0.1 Basophils # 0.0 Nucleated Red Blood 0.0 Cells # Sodium Level 139 Potassium Level 4.4 Chloride Level 109 Carbon Dioxide Level 22 Anion Gap 8 Blood Urea Nitrogen 34 H Creatinine 1.64 H Glucose Level 213 Calcium Level 9.3 Phosphorus Level 4.5 Magnesium Level 2.0 Albumin 3.8 Test 06/26/19 07:30 Bedside Glucose 199 Medications Medication Current Medications Aspirin (Halfprin) 81 mg DAILY PO Last administered on 06/25/19at 10:36; Admin Dose 81 MG; Start 06/20/19 at 09:00 IV Flush (NS 3 ml) 3 ml PER PROTOCOL IV ; Start 06/19/19 at 19:00 Ondansetron HCl (Zofran Inj) 4 mg Q6H PRN IV NAUSEA/VOMITING; Start 06/19/19 at 19:00 Nitroglycerin (Nitroglycerin (Sl Tab) 0.4 Mg) 1 tab Q5M PRN SL .CHEST PAIN; Start 06/19/19 at 19:00 Acetaminophen (Tylenol Tab) 650 mg Q6H PRN PO .PAIN 1-3 OR TEMP Last administered on 06/24/19at 20:28; Admin Dose 650 MG; Start 06/19/19 at 19:00 Docusate Sodium (Colace) 100 mg Q12H PRN PO .CONSTIPATION; Start 06/19/19 at 19:00 Magnesium Hydroxide (Milk Of Mag) 30 ml DAILY PRN PO .CONSTIPATION; Start 06/19/19 at 19:00 Pantoprazole (Protonix Tab) 40 mg DAILY@06 PO Last administered on 06/26/19at 05:32; Admin Dose 40 MG; Start 06/20/19 at 06:00 Gemfibrozil (Lopid) 600 mg BID PO Last administered on 06/25/19at 21:01; Admin Dose 600 MG; Start 06/19/19 at 21:00 Miscellaneous Information 1 ea NOTE XX ; Start 06/19/19 at 19:30 Glucose (Glutose) 15 gm Q15M PRN PO DECREASED GLUCOSE; Start 06/19/19 at 19:30 Glucose (Glutose) 22.5 gm Q15M PRN PO DECREASED GLUCOSE; Start 06/19/19 at 19:30 Dextrose (D50w Syringe) 25 ml Q15M PRN IV DECREASED GLUCOSE; Start 06/19/19 at 19:30 Dextrose (D50w Syringe) 50 ml Q15M PRN IV DECREASED GLUCOSE; Start 06/19/19 at 19:30 Glucagon (Glucagen) 1 mg Q15M PRN IM DECREASED GLUCOSE; Start 06/19/19 at 19:30 Glucose (Glutose) 15 gm Q15M PRN BUCCAL DECREASED GLUCOSE; Start 06/19/19 at 19:30 Atorvastatin Calcium (Lipitor) 80 mg DAILY@21 PO Last administered on 06/25/19 21:00; Admin Dose 80 MG; Start 06/20/19 at 21:00 Hydralazine HCl (Apresoline) 10 mg Q4H PRN IV SBP >170 Last administered on 06/22/19 16:00; Admin Dose 10 MG; Start 06/20/19 at 09:00 Insulin Aspart (Novolog Insulin Pen) NOVOLOG *MODERATE* ALGORITHM WITH MEALS BEDTIME SC Last administered on 06/26/19 08:01; Admin Dose 4 UNIT; Start 06/20/19 at 18:00 Linagliptin (Tradjenta) 5 mg DAILY PO Last administered on 06/25/19 08:34; Admin Dose 5 MG; Start 06/21/19 at 10:30 Sodium Chloride (Deep Sea) 2 spray Q2 PRN NASAL nasal congestion Last administered on 06/25/19 09:40; Admin Dose 2 SPRAY; Start 06/23/19 at 09:30 Metoprolol Succinate (Toprol Xl) 100 mg BID PO Last administered on 06/25/19 21:02; Admin Dose 100 MG; Start 06/23/19 at 21:00 Nifedipine (Procardia Xl) 30 mg BID PO Last administered on 06/25/19 21:01; Admin Dose 30 MG; Start 06/24/19 at 09:00 Fish Oil (Fish Oil) 2,000 mg BID PO Last administered on 06/25/19 21:01; Admin Dose 2,000 MG; Start 06/24/19 at 11:00 Insulin Glargine (Lantus) 25 units DAILY@0800 SC Last administered on 06/26/19 08:01; Admin Dose 25 UNITS; Start 06/25/19 at 08:00 Sodium Chloride 1,000 ml @ 50 mls/hr Q20H IV Last administered on 06/26/19at 05:32; Admin Dose 50 MLS/HR; Start 06/25/19 at 10:30 Bisacodyl (Dulcolax Supp) 10 mg DAILY PRN [place] CONSTIPATION; Start 06/25/19 at 19:00 Mineral Oil (Fleet Mineral Oil Enema) 133 ml DAILY PRN [place] constipation; Start 06/25/19 at 19:00 LIZABETH GOODSON Jun 26, 2019 10:23
[2019-06-26] MEDS: ASPIRIN (EC) 81 MG TAB PO SCH (10:57)
[2019-06-26] MEDS: FISH OIL 1,000 MG CAP PO SCH (10:57)
[2019-06-26] MEDS: GEMFIBROZIL 600 MG TAB PO SCH (10:57)
[2019-06-26] MEDS: METOPROLOL (XL) 100 MG TAB PO SCH (10:58)
[2019-06-26] MEDS: NIFEdipine (XL) 30 MG TAB PO SCH (10:58)
[2019-06-26] MEDS: LINAGLIPTIN 5 MG TABLET PO SCH (10:58)
[2019-06-26 11:34] VITALS: BP 158/85; PULSE 82; RESP 18
--- NOTE | 2019-06-26 13:39 | CONS ---
Assessment/Plan Assessment/Plan Assessment/Plan (Daily) 1. Likely acute on chronic renal failure. The patient has history of noncompliance in the past, longstanding history of diabetes, hypertension. The patient was on metformin at home. Also on renal ultrasound, the patient is noted to have mass in the urinary bladder. The patient also received CT angio of the head on 06/19/2019. with contrast 2. Likely acute kidney injury on chronic kidney disease. He might have CKD with a creatinine of 1.5 in the past it be his new baseline 3. underlying diabetic nephropathy. Proteinuria 4. Diabetes, uncontrolled. 5. Hypertension, uncontrolled. 6. Hypertriglyceridemia. 7. Bladder mass. 9. Right carotid stenosis. 10. Overweight 11. Microcytic hypochromic anemia 12. right side hemiparesis Assessment/Plan (Daily) -Cr. is fluctuating -BMP daily -Renally dose all meds -Need to follow-up with nephrology as an outpatient Consultation Date/Type/Reason Admit Date/Time Jun 19, 2019 at 17:46 Initial Consult Date Requesting Provider: LIZANDRO CARRERA MD Date/Time of Note DATE: 06/26/19 TIME: 13:38 24 HR Interval Summary Free Text/Dictation Patient seen and examined. Going to aru Exam/Review of Systems Exam Vitals Vital Signs Date Temp Pulse Resp B/P (MAP) Pulse Ox O2 O2 Flow FiO2 Time Delivery Rate 06/26/19 97.7 82 18 158/85 97 11:34 (109) 06/26/19 Room Air 04:45 Intake and Output 06/25/19 06/25/19 06/26/19 1515:00 23:00 07:00 IntakeIntake Total 450 ml 150 ml OutputOutput Total 400 ml BalanceBalance 450 ml -250 ml Exam onstitutional: alert, oriented Psych: no complaints Head: normocephalic Eyes: nl conjunctiva ENMT: nl external ears & nose, nl lips & teeth Neck: supple Respiratory: clear to auscultation Cardiovascular: regular rate and rhythm Gastrointestinal: soft Genitourinary - Male: CVA tenderness; No nl penis, No nl scrotum, No discharge, No other Musculoskeletal: muscle weakness (right side of the body) Neurological: nl mental status Skin: nl turgor, rash or lesions; No diaphoresis, No ecchymosis, No laceration, No puncture, No other Results Results Result Diagram: 06/26/19 0522 06/26/19 0522 Results 24hrs Laboratory Tests Test 06/25/19 16:55 06/25/19 20:57 06/26/19 05:22 06/26/19 07:30 Bedside Glucose 213 146 199 White Blood Count 4.8 Red Blood Count 4.93 Hemoglobin 12.2 L Hematocrit 40.7 L Mean Corpuscular 82.6 Volume Mean Corpuscular 24.7 L Hemoglobin Mean Corpuscular 30.0 L Hemoglobin Concent Red Cell 15.8 H Distribution Width Platelet Count 214 Mean Platelet Volume 11.7 H Immature 1.200 H Granulocytes % Neutrophils % 60.2 Lymphocytes % 27.4 Monocytes % 9.1 Eosinophils % 1.9 Basophils % 0.2 Nucleated Red Blood 0.0 Cells % Immature 0.060 H Granulocytes # Neutrophils # 2.9 Lymphocytes # 1.3 Monocytes # 0.4 Eosinophils # 0.1 Basophils # 0.0 Nucleated Red Blood 0.0 Cells # Sodium Level 139 Potassium Level 4.4 Chloride Level 109 Carbon Dioxide Level 22 Anion Gap 8 Blood Urea Nitrogen 34 H Creatinine 1.64 H Glucose Level 213 Calcium Level 9.3 Phosphorus Level 4.5 Magnesium Level 2.0 Albumin 3.8 Test 06/26/19 11:58 Bedside Glucose 219 FARHAN WHITNEY MD Jun 26, 2019 13:39
== END 2019-06-26 12:45 | DRG 65 ==
LOC: E/R 15:13 → TEL 17:46 → 6WM 06-20 02:17
PROVIDERS: ADMIT Internal Medicine; ATTEND Internal Medicine
DX: I63.9 Cerebral infarction, unspecified (principal); G81.91 Hemiplegia, unspecified affecting right dominant side; N17.9 Acute kidney failure, unspecified; I12.9 Hypertensive chronic kidney disease with stage 1 through stage 4 chronic kidney disease, or unspecified chronic kidney disease; E11.22 Type 2 diabetes mellitus with diabetic chronic kidney disease; N18.9 Chronic kidney disease, unspecified; E78.1 Pure hyperglyceridemia; N32.9 Bladder disorder, unspecified; E11.65 Type 2 diabetes mellitus with hyperglycemia; I65.23 Occlusion and stenosis of bilateral carotid arteries; E66.3 Overweight; D50.9 Iron deficiency anemia, unspecified; Z87.891 Personal history of nicotine dependence; Z68.27 Body mass index [BMI] 27.0-27.9, adult; Z91.19 Patient's noncompliance with other medical treatment and regimen
CPT/HCPCS: 70450; 70496; 70498; 70551; 71045; 76775; 80048; 80053; 80061; 80069; 80307; 81001; 81003; 82550; 82553; 82570; 82962; 83036; 83540; 83735; 84443; 84484; 85025; 85610; 85651; 85730; 86592; 92523; 92610; 93005; 93306; 93880; 96374; 97110; 97116; 97163; 97165; 97530; 97535; J0360; J1644; J1815; J3475; J7030

== ENCOUNTER 2019-06-26 13:00 | Inpatient (IN) | payer MEDICARE, MEDICAID ==
[~2019-06-26] VITALS: Ht 167.6 cm; Wt 84.1 kg
[2019-06-26 13:30] VITALS: BP 135/72; PULSE 74; RESP 18
[2019-06-26] MEDS ORDERED: BISACODYL 10 MG SUPP PR PRN (13:30)
[2019-06-26] MEDS ORDERED: PENDING SANTYL ORDER FOR WOUND CARE XX PRN (13:30)
[2019-06-26] MEDS ORDERED: LACTULOSE 30ML CUP PO PRN (13:30)
[2019-06-26] MEDS ORDERED: MAGNESIUM HYDROXIDE 30ML CUP PO PRN (13:30)
[2019-06-26 14:00] VITALS: Ht 167.6 cm; Wt 84.1 kg
[2019-06-26] MEDS ORDERED: GLUCOSE GEL 15 GRAM TUBE PO PRN ×4 (14:00→15:00)
[2019-06-26] MEDS ORDERED: DEXTROSE 50% 50 ML SYRINGE IV PRN ×4 (14:00→15:00)
[2019-06-26] MEDS ORDERED: GLUCAGON 1 MG INJ IM PRN ×2 (14:00→15:00)
[2019-06-26] MEDS ORDERED: GLUCOSE GEL 15 GRAM TUBE BUCCAL PRN ×2 (14:00→15:00)
[2019-06-26] MEDS ORDERED: SALINE 0.65% 45 ML NAS SPRAY NASAL PRN (14:30)
[2019-06-26] MEDS ORDERED: hydrALAzine 20 MG INJ IV PRN (14:30)
[2019-06-26] MEDS ORDERED: ONDANSETRON (ODT) 4 MG TAB ODT PRN (14:30)
[2019-06-26] MEDS: ACCU-CHEK XX SCH ×2 (17:28→21:26)
[2019-06-26] MEDS: INSULIN ASPART [NOVOLOG] 3 ML PEN SC SCH ×2 (17:28→21:26)
[2019-06-26 20:00] VITALS: BP 147/81; PULSE 76; RESP 18
[2019-06-26] MEDS: GEMFIBROZIL 600 MG TAB PO SCH (21:23)
[2019-06-26] MEDS: ATORVASTATIN 80 MG TAB PO SCH (21:23)
[2019-06-26] MEDS: FISH OIL 1,000 MG CAP PO SCH (21:23)
[2019-06-26] MEDS: SENNA TAB PO SCH (21:23)
[2019-06-26] MEDS: DOCUSATE SODIUM 100 MG CAP PO SCH (21:23)
[2019-06-26] MEDS: METOPROLOL 50 MG PO SCH (21:24)
[2019-06-26] MEDS: NIFEdipine (XL) 30 MG TAB PO SCH (21:24)
[2019-06-27 02:00] VITALS: BP 148/82; PULSE 68; RESP 18
[2019-06-27] MEDS: ACCU-CHEK XX SCH ×5 (02:20→21:06)
[2019-06-27] MEDS: PANTOPRAZOLE (EC) 40 MG TAB PO SCH (06:28)
[2019-06-27 07:30] VITALS: BP 133/66; PULSE 72; RESP 20
[2019-06-27] MEDS: INSULIN ASPART [NOVOLOG] 3 ML PEN SC SCH ×4 (07:59→21:06)
[2019-06-27] MEDS: INSULIN GLARGINE [LANTus] (100 UNITS/ML) SYG SC SCH (07:59)
[2019-06-27] MEDS: FISH OIL 1,000 MG CAP PO SCH ×2 (08:40→20:55)
[2019-06-27] MEDS: LINAGLIPTIN 5 MG TABLET PO SCH (08:40)
[2019-06-27] MEDS: NIFEdipine (XL) 30 MG TAB PO SCH ×2 (08:41→20:56)
[2019-06-27] MEDS: METOPROLOL 50 MG PO SCH ×2 (08:41→20:56)
[2019-06-27] MEDS: GEMFIBROZIL 600 MG TAB PO SCH ×2 (08:41→20:55)
[2019-06-27] MEDS: DOCUSATE SODIUM 100 MG CAP PO SCH ×2 (08:41→20:55)
[2019-06-27] MEDS: ASPIRIN (EC) 81 MG TAB PO SCH (08:41)
[2019-06-27 14:00] VITALS: BP 132/78; PULSE 72; RESP 18
[2019-06-27 20:00] VITALS: BP 117/61; PULSE 68; RESP 18
[2019-06-27] MEDS: SENNA TAB PO SCH (20:56)
[2019-06-27] MEDS: ATORVASTATIN 80 MG TAB PO SCH (20:56)
[2019-06-27] MEDS: ACETAMINOPHEN 325 MG TAB PO PRN (23:51)
[2019-06-28 02:00] VITALS: BP 177/80; PULSE 74; RESP 18
[2019-06-28] MEDS: ACCU-CHEK XX SCH ×5 (02:00→20:57)
[2019-06-28] MEDS: PANTOPRAZOLE (EC) 40 MG TAB PO SCH (06:00)
[2019-06-28 07:30] VITALS: BP 150/74; PULSE 72; RESP 20
[2019-06-28] MEDS: INSULIN ASPART [NOVOLOG] 3 ML PEN SC SCH ×4 (07:57→20:56)
[2019-06-28] MEDS: INSULIN GLARGINE [LANTus] (100 UNITS/ML) SYG SC SCH (07:57)
[2019-06-28] MEDS: LINAGLIPTIN 5 MG TABLET PO SCH (07:58)
[2019-06-28] MEDS: ASPIRIN (EC) 81 MG TAB PO SCH (09:13)
[2019-06-28] MEDS: DOCUSATE SODIUM 100 MG CAP PO SCH ×2 (09:14→20:52)
[2019-06-28] MEDS: FISH OIL 1,000 MG CAP PO SCH ×2 (09:14→20:52)
[2019-06-28] MEDS: METOPROLOL 50 MG PO SCH ×2 (09:14→20:51)
[2019-06-28] MEDS: NIFEdipine (XL) 30 MG TAB PO SCH ×2 (09:14→20:52)
[2019-06-28] MEDS: GEMFIBROZIL 600 MG TAB PO SCH ×2 (09:14→20:50)
[2019-06-28] MEDS: FERROUS SULFATE (EC) 325 MG TAB PO SCH (13:15)
[2019-06-28 14:00] VITALS: BP 136/72; PULSE 76; RESP 18
[2019-06-28 19:34] VITALS: BP 145/81; PULSE 76; RESP 18
[2019-06-28] MEDS: SENNA TAB PO SCH (20:50)
[2019-06-28] MEDS: ATORVASTATIN 80 MG TAB PO SCH (20:50)
[2019-06-28] MEDS: MUPIROCIN 2% 22 GM OINT TOP SCH (20:57)
[2019-06-29] MEDS: ACCU-CHEK XX SCH ×5 (01:35→21:00)
[2019-06-29 02:00] VITALS: BP 141/77; PULSE 74; RESP 18
[2019-06-29] MEDS: PANTOPRAZOLE (EC) 40 MG TAB PO SCH (05:42)
[2019-06-29 07:00] VITALS: BP 146/83; PULSE 76; RESP 18
[2019-06-29] MEDS: INSULIN ASPART [NOVOLOG] 3 ML PEN SC SCH ×4 (07:51→21:38)
[2019-06-29] MEDS: INSULIN GLARGINE [LANTus] (100 UNITS/ML) SYG SC SCH (07:52)
[2019-06-29] MEDS: FISH OIL 1,000 MG CAP PO SCH ×2 (08:53→21:27)
[2019-06-29] MEDS: FERROUS SULFATE (EC) 325 MG TAB PO SCH (08:53)
[2019-06-29] MEDS: METOPROLOL 50 MG PO SCH ×2 (08:54→21:29)
[2019-06-29] MEDS: NIFEdipine (XL) 30 MG TAB PO SCH ×2 (08:54→21:29)
[2019-06-29] MEDS: LINAGLIPTIN 5 MG TABLET PO SCH (08:54)
[2019-06-29] MEDS: DOCUSATE SODIUM 100 MG CAP PO SCH ×2 (08:54→21:27)
[2019-06-29] MEDS: GEMFIBROZIL 600 MG TAB PO SCH ×2 (08:54→21:27)
[2019-06-29] MEDS: MUPIROCIN 2% 22 GM OINT TOP SCH ×2 (08:54→21:32)
[2019-06-29] MEDS: ASPIRIN (EC) 81 MG TAB PO SCH (08:54)
[2019-06-29 14:00] VITALS: BP 140/89; PULSE 70; RESP 18
[2019-06-29 19:48] VITALS: BP 153/78; PULSE 71; RESP 18
[2019-06-29] MEDS: SENNA TAB PO SCH (21:27)
[2019-06-29] MEDS: ACETAMINOPHEN 325 MG TAB PO PRN (21:28)
[2019-06-29] MEDS: ATORVASTATIN 80 MG TAB PO SCH (21:29)
[2019-06-30] MEDS: ACCU-CHEK XX SCH ×5 (02:00→20:49)
[2019-06-30 02:34] VITALS: BP 115/58; PULSE 67; RESP 19
[2019-06-30] MEDS: PANTOPRAZOLE (EC) 40 MG TAB PO SCH (06:55)
[2019-06-30 08:00] VITALS: BP 112/64; PULSE 72; RESP 72
[2019-06-30] MEDS: INSULIN ASPART [NOVOLOG] 3 ML PEN SC SCH ×4 (08:03→20:48)
[2019-06-30] MEDS: LINAGLIPTIN 5 MG TABLET PO SCH (08:04)
[2019-06-30] MEDS: INSULIN GLARGINE [LANTus] (100 UNITS/ML) SYG SC SCH (08:04)
[2019-06-30] MEDS: GEMFIBROZIL 600 MG TAB PO SCH ×2 (08:07→20:48)
[2019-06-30] MEDS: FISH OIL 1,000 MG CAP PO SCH ×2 (08:07→20:48)
[2019-06-30] MEDS: DOCUSATE SODIUM 100 MG CAP PO SCH ×2 (08:07→20:48)
[2019-06-30] MEDS: FERROUS SULFATE (EC) 325 MG TAB PO SCH (08:07)
[2019-06-30] MEDS: ASPIRIN (EC) 81 MG TAB PO SCH (08:07)
[2019-06-30] MEDS: NIFEdipine (XL) 30 MG TAB PO SCH ×2 (08:09→20:48)
[2019-06-30] MEDS: METOPROLOL 50 MG PO SCH ×2 (08:10→20:48)
[2019-06-30] MEDS: MUPIROCIN 2% 22 GM OINT TOP SCH ×2 (08:10→20:49)
[2019-06-30 14:00] VITALS: BP 144/77; PULSE 79; RESP 20
[2019-06-30 19:27] VITALS: BP 147/68; PULSE 75; RESP 18
[2019-06-30] MEDS: SENNA TAB PO SCH (20:48)
[2019-06-30] MEDS: ATORVASTATIN 80 MG TAB PO SCH (20:48)
[2019-07-01 02:00] VITALS: BP 138/63; PULSE 69; RESP 18
[2019-07-01] MEDS: ACCU-CHEK XX SCH ×5 (02:00→21:29)
[2019-07-01] MEDS: PANTOPRAZOLE (EC) 40 MG TAB PO SCH (06:40)
[2019-07-01 07:30] VITALS: BP 140/72; PULSE 74; RESP 20
[2019-07-01] MEDS: INSULIN ASPART [NOVOLOG] 3 ML PEN SC SCH ×4 (07:35→21:18)
[2019-07-01] MEDS: INSULIN GLARGINE [LANTus] (100 UNITS/ML) SYG SC SCH (08:00)
[2019-07-01] MEDS: LINAGLIPTIN 5 MG TABLET PO SCH (08:00)
[2019-07-01] MEDS: MUPIROCIN 2% 22 GM OINT TOP SCH ×2 (08:01→21:28)
[2019-07-01] MEDS: DOCUSATE SODIUM 100 MG CAP PO SCH ×2 (09:28→21:17)
[2019-07-01] MEDS: METOPROLOL 50 MG PO SCH ×2 (09:29→21:16)
[2019-07-01] MEDS: GEMFIBROZIL 600 MG TAB PO SCH ×2 (09:29→21:16)
[2019-07-01] MEDS: ASPIRIN (EC) 81 MG TAB PO SCH ×2 (09:29→21:16)
[2019-07-01] MEDS: FISH OIL 1,000 MG CAP PO SCH ×2 (09:29→21:16)
[2019-07-01] MEDS: FERROUS SULFATE (EC) 325 MG TAB PO SCH (09:29)
[2019-07-01] MEDS: NIFEdipine (XL) 30 MG TAB PO SCH ×2 (09:29→21:17)
[2019-07-01] MEDS: THIAMINE 100 MG TAB PO SCH (12:40)
[2019-07-01 14:00] VITALS: BP 148/73; PULSE 83; RESP 20
[2019-07-01 19:30] VITALS: BP 136/66; PULSE 78; RESP 18
[2019-07-01] MEDS ORDERED: NIACIN (ER) 500 MG TAB PO SCH (21:00)
[2019-07-01] MEDS: ATORVASTATIN 80 MG TAB PO SCH (21:17)
[2019-07-01] MEDS: SENNA TAB PO SCH (21:17)
[2019-07-01] MEDS: PSYLLIUM (SUGAR FREE) PACKET PO SCH (21:17)
[2019-07-01] MEDS: NIACIN (SR) 250 MG CAP PO SCH (23:11)
[2019-07-02 02:00] VITALS: BP 142/70; PULSE 76; RESP 18
[2019-07-02] MEDS: ACCU-CHEK XX SCH ×5 (02:50→21:23)
[2019-07-02] MEDS: PANTOPRAZOLE (EC) 40 MG TAB PO SCH (06:09)
[2019-07-02] MEDS: INSULIN GLARGINE [LANTus] (100 UNITS/ML) SYG SC SCH (09:00)
[2019-07-02] MEDS: INSULIN ASPART [NOVOLOG] 3 ML PEN SC SCH ×4 (09:00→20:29)
[2019-07-02] MEDS: THIAMINE 100 MG TAB PO SCH (09:02)
[2019-07-02] MEDS: FISH OIL 1,000 MG CAP PO SCH ×2 (09:02→20:24)
[2019-07-02] MEDS: FERROUS SULFATE (EC) 325 MG TAB PO SCH (09:03)
[2019-07-02] MEDS: METOPROLOL 50 MG PO SCH ×2 (09:03→20:27)
[2019-07-02] MEDS: LINAGLIPTIN 5 MG TABLET PO SCH (09:03)
[2019-07-02] MEDS: GEMFIBROZIL 600 MG TAB PO SCH ×2 (09:03→20:24)
[2019-07-02] MEDS: NIFEdipine (XL) 30 MG TAB PO SCH (09:03)
[2019-07-02] MEDS: DOCUSATE SODIUM 100 MG CAP PO SCH ×2 (09:03→20:24)
[2019-07-02] MEDS: MUPIROCIN 2% 22 GM OINT TOP SCH ×2 (09:05→21:10)
[2019-07-02 16:35] VITALS: BP 160/85; PULSE 78; RESP 18
[2019-07-02] MEDS: metFORMIN 500 MG TAB PO SCH (17:40)
[2019-07-02 20:00] VITALS: BP 170/87; PULSE 76; RESP 18
[2019-07-02] MEDS: ALFUZOSIN (SR) 10 MG TAB PO SCH (20:23)
[2019-07-02] MEDS: ASPIRIN (EC) 81 MG TAB PO SCH (20:23)
[2019-07-02] MEDS: ATORVASTATIN 80 MG TAB PO SCH (20:24)
[2019-07-02] MEDS: LOSARTAN 50 MG TAB PO SCH (20:26)
[2019-07-02 20:27] VITALS: BP 154/74; PULSE 76
[2019-07-02] MEDS: SENNA TAB PO SCH (20:27)
[2019-07-02] MEDS: PSYLLIUM (SUGAR FREE) PACKET PO SCH (20:38)
[2019-07-02] MEDS: NIACIN (SR) 250 MG CAP PO SCH (21:08)
[2019-07-03] MEDS: ACCU-CHEK XX SCH ×5 (02:00→21:19)
[2019-07-03 02:14] VITALS: BP 140/71; PULSE 76; RESP 18
[2019-07-03] MEDS: PANTOPRAZOLE (EC) 40 MG TAB PO SCH (06:41)
[2019-07-03 07:30] VITALS: BP 154/93; RESP 20
[2019-07-03] MEDS: LINAGLIPTIN 5 MG TABLET PO SCH (07:52)
[2019-07-03] MEDS: INSULIN ASPART [NOVOLOG] 3 ML PEN SC SCH ×4 (07:54→21:00)
[2019-07-03] MEDS: INSULIN GLARGINE [LANTus] (100 UNITS/ML) SYG SC SCH (08:01)
[2019-07-03] MEDS: FERROUS SULFATE (EC) 325 MG TAB PO SCH (09:09)
[2019-07-03] MEDS: THIAMINE 100 MG TAB PO SCH (09:09)
[2019-07-03] MEDS: FISH OIL 1,000 MG CAP PO SCH ×2 (09:09→20:37)
[2019-07-03] MEDS: DOCUSATE SODIUM 100 MG CAP PO SCH ×2 (09:09→20:37)
[2019-07-03] MEDS: GEMFIBROZIL 600 MG TAB PO SCH ×2 (09:10→20:37)
[2019-07-03] MEDS: METOPROLOL 50 MG PO SCH ×2 (09:10→20:40)
[2019-07-03] MEDS: MUPIROCIN 2% 22 GM OINT TOP SCH (09:11)
[2019-07-03 14:00] VITALS: BP 132/70; PULSE 80; RESP 18
[2019-07-03] MEDS: metFORMIN 500 MG TAB PO SCH (17:45)
[2019-07-03 20:00] VITALS: BP 169/81; PULSE 82; RESP 18
[2019-07-03] MEDS: SENNA TAB PO SCH (20:37)
[2019-07-03] MEDS: NIACIN (SR) 250 MG CAP PO SCH (20:37)
[2019-07-03] MEDS: ASPIRIN (EC) 81 MG TAB PO SCH (20:37)
[2019-07-03] MEDS: ALFUZOSIN (SR) 10 MG TAB PO SCH (20:37)
[2019-07-03] MEDS: PSYLLIUM (SUGAR FREE) PACKET PO SCH (20:38)
[2019-07-03] MEDS: ATORVASTATIN 80 MG TAB PO SCH (20:38)
[2019-07-03] MEDS: LOSARTAN 50 MG TAB PO SCH (20:39)
[2019-07-04] MEDS: ACCU-CHEK XX SCH ×5 (02:00→22:00)
[2019-07-04] MEDS: PANTOPRAZOLE (EC) 40 MG TAB PO SCH (06:46)
[2019-07-04] MEDS: INSULIN ASPART [NOVOLOG] 3 ML PEN SC SCH ×4 (07:55→22:00)
[2019-07-04] MEDS: INSULIN GLARGINE [LANTus] (100 UNITS/ML) SYG SC SCH (07:56)
[2019-07-04] MEDS: LINAGLIPTIN 5 MG TABLET PO SCH (08:03)
[2019-07-04 08:23] VITALS: BP 132/86; PULSE 85; RESP 18
[2019-07-04] MEDS: GEMFIBROZIL 600 MG TAB PO SCH ×2 (08:43→22:07)
[2019-07-04] MEDS: FERROUS SULFATE (EC) 325 MG TAB PO SCH (08:43)
[2019-07-04] MEDS: DOCUSATE SODIUM 100 MG CAP PO SCH ×2 (08:43→22:08)
[2019-07-04] MEDS: FISH OIL 1,000 MG CAP PO SCH ×2 (08:43→22:07)
[2019-07-04] MEDS: THIAMINE 100 MG TAB PO SCH (08:43)
[2019-07-04] MEDS: METOPROLOL 50 MG PO SCH ×2 (08:45→22:09)
[2019-07-04 14:12] VITALS: BP 133/70; PULSE 84; RESP 18
[2019-07-04] MEDS: metFORMIN 500 MG TAB PO SCH (17:32)
[2019-07-04 20:00] VITALS: BP 175/77; PULSE 84; RESP 18
[2019-07-04] MEDS: NIACIN (SR) 250 MG CAP PO SCH (22:07)
[2019-07-04] MEDS: PSYLLIUM (SUGAR FREE) PACKET PO SCH (22:07)
[2019-07-04] MEDS: ALFUZOSIN (SR) 10 MG TAB PO SCH (22:07)
[2019-07-04] MEDS: ASPIRIN (EC) 81 MG TAB PO SCH (22:07)
[2019-07-04] MEDS: LOSARTAN 50 MG TAB PO SCH (22:08)
[2019-07-04] MEDS: ATORVASTATIN 80 MG TAB PO SCH (22:08)
[2019-07-04] MEDS: SENNA TAB PO SCH (22:10)
[2019-07-05] MEDS: ACCU-CHEK XX SCH ×3 (02:00→11:30)
[2019-07-05] MEDS: ACETAMINOPHEN 325 MG TAB PO PRN (02:08)
[2019-07-05 02:30] VITALS: BP 148/74; PULSE 83; RESP 18
[2019-07-05] MEDS ORDERED: ONDANSETRON 4 MG INJ IV PRN (03:00)
[2019-07-05] MEDS ORDERED: NITROGLYCERIN (SL) 0.4 MG TAB SL PRN (03:00)
[2019-07-05] MEDS: PANTOPRAZOLE (EC) 40 MG TAB PO SCH (06:49)
[2019-07-05 07:00] VITALS: BP 152/76; PULSE 76; RESP 18
[2019-07-05] MEDS: INSULIN ASPART [NOVOLOG] 3 ML PEN SC SCH ×2 (07:35→12:04)
[2019-07-05] MEDS: LINAGLIPTIN 5 MG TABLET PO SCH (08:03)
[2019-07-05] MEDS: INSULIN GLARGINE [LANTus] (100 UNITS/ML) SYG SC SCH (08:07)
[2019-07-05] MEDS: FISH OIL 1,000 MG CAP PO SCH (08:22)
[2019-07-05] MEDS: DOCUSATE SODIUM 100 MG CAP PO SCH (08:22)
[2019-07-05] MEDS: FERROUS SULFATE (EC) 325 MG TAB PO SCH (08:22)
[2019-07-05] MEDS: GEMFIBROZIL 600 MG TAB PO SCH (08:23)
[2019-07-05] MEDS: THIAMINE 100 MG TAB PO SCH (08:24)
[2019-07-05] MEDS: METOPROLOL 50 MG PO SCH (08:24)
== END 2019-07-05 12:50 | disposition home health service (06) | DRG 57 ==
LOC: VRC 13:00
PROVIDERS: ADMIT Physical Medicine & Rehabilitation; ATTEND Internal Medicine Pulmonary Disease
DX: I69.351 Hemiplegia and hemiparesis following cerebral infarction affecting right dominant side (principal); E72.51 Non-ketotic hyperglycinemia; N17.9 Acute kidney failure, unspecified; I65.23 Occlusion and stenosis of bilateral carotid arteries; N32.9 Bladder disorder, unspecified; E11.22 Type 2 diabetes mellitus with diabetic chronic kidney disease; I12.9 Hypertensive chronic kidney disease with stage 1 through stage 4 chronic kidney disease, or unspecified chronic kidney disease; Z74.09 Other reduced mobility; N18.2 Chronic kidney disease, stage 2 (mild); F06.31 Mood disorder due to known physiological condition with depressive features; Z87.891 Personal history of nicotine dependence
CPT/HCPCS: 80048; 80053; 80061; 81001; 82728; 82962; 83540; 85025; 86803; 87081; 87086; 87340; 92523; 97110; 97116; 97163; 97166; 97530; 97535; 97542; J1815; L1820; L1932; L2820; L3675